=== PATIENT | male | born 2000 | race Caucasian/White ===

== ENCOUNTER 2022-01-04 14:17 | Inpatient (IN) ==
[2022-01-04] MEDS ORDERED: ONDANSETRON INJ 2 MG/ML 2 ML VIAL IV STA (14:29)
[2022-01-04] MEDS ORDERED: SODIUM CHLORIDE 0.9% 1000ML 1,000 ML IV STA ×2 (14:29)
[2022-01-04] MEDS ORDERED: FAMOTIDINE 20MG IV PUSH 20 MG/5 ML SYR IV STA (14:40)
[2022-01-04] MEDS ORDERED: MoRPHine SULFATE 2 MG/ML CARP IV STA (14:40)
[2022-01-04 14:56] LABS: Basophils # (auto) 0.01 K/uL (0-0.2); Basophils % (auto) 0.1 %; Hematocrit (blood only) 40.2 % (40.1-51.0); Hemoglobin 13.3 g/dl (14.0-18.0); Immature Granulocytes # (auto) 0.03 K/uL (0.00-0.02); Immature Granulocytes % (auto) 0.3 %; Lymphocytes # (auto) 0.72 K/uL (1.2-3.4); Lymphocytes % (auto) 7.3 %; Mean Corpuscular Hemoglobin 26.2 pg (25.0-34.0); Mean Corpuscular Hgb Conc 33.1 g/dL (32.0-36.0); Mean Corpuscular Volume 79.3 fL (80.0-100.0); Mean Platelet Volume 9.6 fL (9.4-12.4); Monocytes # (auto) 0.51 K/uL (0.24-0.82); Monocytes % (auto) 5.2 %; Neutrophils # (auto) 8.58 K/uL (1.4-6.5); Neutrophils % (auto) 87.1 %; Platelet Count 392 K/uL (130-400); RDW Coefficient of Variation 14.5 % (11.5-14.5); RDW Standard Deviation 41.1 fL (36.4-46.3); Red Blood Count 5.07 M/uL (4.63-6.08); White Blood Count 9.85 K/ul (4.8-10.8)
--- NOTE | 2022-01-04 15:20 | Emergency Department Note ---
Impression & Plan Small bowel obstruction, Abdominal pain, acute, epigastric, Coffee ground emesis, History of Crohn's disease ED Provider Note INFORMANT: Patient ED PROVIDER(S): Lai Moreira MD CHIEF COMPLAINT: Abdominal pain PLAN: Disposition: Admitted Condition: Good Outpatient prescription management: none Referral: None MEDICAL DECISION MAKING: Patient presented because of abdominal pain. Work-up was initiated. His CBC and chemistry panel were unremarkable. The patient's CT scan revealed findings concerning for bowel obstruction. She was treated with saline, Zofran, and morphine. Patient was also treated with Pepcid. Patient was doing well on reassessment. NG tube will be necessary. Discussed with the patient. Consultation was made with general surgery I discussed the case with Dr. Jorgensen. They will consult. Patient had consultation placed with internal medicine. Patient was evaluated in the ER and admitted for further management. Triage Nursing notes reviewed and agree them. Vital Signs: reviewed and remarkable for no significant abnormalities Differential diagnosis: Etiologies such as patient of inflammatory bowel disease, Juliette-Neri tear, peptic ulcer disease, gastroenteritis, food borne illness, infections, appendicitis, diverticulitis, other inflammatory bowel disease, GI bleed, biliary pathology, as well as others were entertained. Diagnostics interpreted by me: ECG: none Cardiac Monitoring: Cardiac monitoring ordered by me: The patient was placed on continuous cardiac monitoring and observed. It revealed a normal sinus rhythm at 86 beats per minute without ectopy or evidence of dysrhythmia. Imaging studies: CT scan as noted below HPI: The patient is a 21year old male who presents to the Emergency Room with complaints of upper abdominal pain. This started days ago and is worsening. The patient also notes the following associated symptoms, nausea, coffee-ground emesis that started last night. The patient has found no relieving factors. C urrent pain is rated as 4/10. Patient has a history of Crohn's disease. He is currently on a prednisone taper. He was on 40 mg last week and is now on 30 mg. Patient was previously prescribed a PPI but has not taken it in the last several days. Pt denies LOC, headache, fevers, chills, diaphoresis, visual changes, neck pain, chest pain, breathing difficulties, back pain, melena, hematochezia, urinary symptoms, numbness, weakness, lymphadenopathy, rash, or other complaints. ROS: See above HPI for pertinent positives & negatives. A total of 10 systems reviewed and were otherwise negative. PAST MEDICAL HISTORY:See Below , Crohn's disease PAST SURGICAL HISTORY:See Below, FAMILY HISTORY:See Below SOCIAL HISTORY:See Below, denies alcohol HOME MEDICATIONS:See Below ALLERGIES:See Below VITALS:See Below PHYSICAL EXAMINATION: GENERAL: Awake, alert, uncomfortable-appearing, in no distress HENT: Normocephalic, atraumatic. Oropharynx unremarkable. EYES: Normal conjunctiva. Sclera non-icteric. NECK: Inspection normal. Non-tender. Supple. No nuchal rigidity. FROM. No masses. RESPIRATORY: Clear to auscultation. No wheezes. No rales. Normal respiratory effort. CARDIAC: Normal rate. Normal rhythm. No murmurs. No rubs. Extremities warm and well perfused. Pulses equal. No JVD. GI: Soft, non-distended. Epigastric tenderness to palpation. No rebound or guarding. No masses. RECTAL: Deferred. MUSCULOSKELETAL: Atraumatic. Chest examination reveals no tenderness. The back is symmetrical on inspection without obvious abnormality. There is no CVA tenderness to palpation. No joint edema. LOWER EXTREMITIES: Calves are equal size bilaterally and non-tender. No edema. No discoloration. NEURO: Normal sensorium. No sensory or motor deficits noted. SKIN: No rash or jaundice noted. Lia Moreira MD Past Med/Surg History Medical History Crohn disease Surgical History No history of previous surgery Family History Father Hypertension Social History Smoking Status: Never smoker Hx Alcohol Use: No Hx Substance Use: No Preferred Language: Micronesian Communication Ability: Effective Recruitment And Outreach Assistant Required: No Beliefs That Will Affect Care: None Current Living Situation: Other Current Living Situation Comment: lives in dorm at [facility] Feels Safe at Home: Yes Assistive Devices: None Allergies Allergies Allergy/AdvReac Type Severity Reaction Status Date / Time No Known Allergies Allergy Unverified 01/04/22 17:54 Home Meds Home Medications Medication Instructions Recorded Confirmed esomeprazole magnesium 40 mg 40 mg PO DAILY 01/04/22 01/04/22 capsule,delayed release prednisone 10 mg tablet 40 mg PO .DAILY/UD 01/04/22 01/04/22 ustekinumab 90 mg/mL subcutaneous 0 mg subcut Q2M 01/04/22 01/04/22 syringe (Stelara) Results & Data (ED) Vital Signs Vital Signs - 24 hr 01/04/22 14:20 01/04/22 14:32 01/04/22 14:37 Temperature 37.1 C Temperature Source Temporal Artery Scan Pulse Rate 102 H 94 H Pulse Rate [Finger] 90 Pulse Rhythm Regular Pulse Rhythm [Finger] Regular Pulse Strength [Finger] Normal Respiratory Rate 18 20 18 Respiratory Effort / Characteristics Non-Labored Respiratory Depth Normal Respiratory Pattern Blood Pressure 133/93 Blood Pressure [Left Arm] 113/78 Blood Pressure Mean 106 Blood Pressure Mean [Left Arm] 89 Blood Pressure Position [Left Arm] Lying Pulse Oximetry 97 96 97 Oxygen Delivery Method Room Air Room Air Room Air Sepsis Recent Fever Within 48 Hours No Sepsis New/Unexplained Change in Mental Status N/A Sepsis Action Taken by Nursing No Action Required 01/04/22 17:00 01/04/22 18:00 01/04/22 19:00 Temperature Temperature Source Pulse Rate Pulse Rate [Finger] 98 H 93 H 88 Pulse Rhythm Pulse Rhythm [Finger] Regular Regular Pulse Strength [Finger] Normal Normal Respiratory Rate 18 18 18 Respiratory Effort / Characteristics Non-Labored Non-Labored Respiratory Depth Normal Normal Respiratory Pattern Regular Regular Blood Pressure Blood Pressure [Left Arm] 138/85 124/83 127/82 Blood Pressure Mean Blood Pressure Mean [Left Arm] 102 96 97 Blood Pressure Position [Left Arm] Pulse Oximetry 94 97 96 Oxygen Delivery Method Room Air Room Air Room Air Sepsis Recent Fever Within 48 Hours Sepsis New/Unexplained Change in Mental Status Sepsis Action Taken by Nursing Laboratory Data Result diagrams: 01/04/22 14:45 01/04/22 14:45 Lab Results 01/04/22 01/04/22 01/04/22 Range/Units 14:45 14:45 17:14 WBC 9.85 (4.8-10.8) K/ul RBC 5.07 (4.63-6.08) M/uL Hgb 13.3 L (14.0-18.0) g/dl Hct 40.2 (40.1-51.0) % MCV 79.3 L (80.0-100.0) fL MCH 26.2 (25.0-34.0) pg MCHC 33.1 (32.0-36.0) g/dL RDW Std Deviation 41.1 (36.4-46.3) fL RDW Coeff of Андрей 14.5 (11.5-14.5) % Plt Count 392 (130-400) K/uL MPV 9.6 (9.4-12.4) fL Immature Gran % (Auto) 0.3 % Neut % (Auto) 87.1 % Lymph % (Auto) 7.3 % Cedar % (Auto) 5.2 % Eos % (Auto) 0.0 % Baso % (Auto) 0.1 % Neut # (Auto) 8.58 H (1.4-6.5) K/uL Lymph # (Auto) 0.72 L (1.2-3.4) K/uL Cedar # (Auto) 0.51 (0.24-0.82) K/uL Eos # (Auto) 0.00 (0-0.50) K/uL Baso # (Auto) 0.01 (0-0.2) K/uL Immature Gran # (Auto) 0.03 H (0.00-0.02) K/uL Sodium 136 (136-145) mmol/L Potassium 3.8 (3.5-5.1) mmol/L Chloride 100 (98-107) mmol/L Carbon Dioxide 26 (21-32) mmol/L Anion Gap 10 (3-11) BUN 19 (6-23) mg/dl Creatinine 0.65 (0.6-1.4) mg/dl Est Cr Clr Drug Dosing 152.0 ml/min Est GFR ( Amer) > 150.0 ml/min Est GFR (Non-Af Amer) 141.0 ml/min BUN/Creatinine Ratio 29.2 H (10-20) Glucose 128 H (70-99(Fasting)) mg/dl Calcium 9.5 (8.5-10.1) mg/dl Total Bilirubin 0.9 (0.2-1.0) mg/dl AST 13 (13-39) U/L ALT 39 (7-52) U/L Alkaline Phosphatase 82 (34-104) U/L Total Protein 7.8 (6.0-8.3) gm/dl Albumin 4.5 (3.4-5.0) gm/dl Globulin 3.3 (2.5-4.0) gm/dl Albumin/Globulin Ratio 1.4 (0.9-2) Lipase 18 (11-82) U/L Urine Color Dark Yellow Urine Appearance Cloudy A (Clear) Urine pH 5.5 (4.5-7.5) Ur Specific [place] 1.035 H (1.000-1.030) Urine Protein 1+ H (Negative) Urine Glucose (UA) Trace H (Negative) Urine Ketones 3+ H (Negative) Urine Blood Negative (Negative) Urine Nitrite Negative (Negative) Urine Bilirubin 1+ H (Negative) Urine Urobilinogen Negative (Negative) Ur Leukocyte Esterase Negative (Negative) Urine WBC (Auto) 1-5 (0-5) /hpf Urine RBC (Auto) 0-4 (0-4) /hpf U Hyaline Cast (Auto) 1-5 (0-5) /lpf U Epithel Cells (Auto) 10-20 H (0-5) /lpf Urine Bacteria (Auto) Negative (Negative) Urine Crystals Not Reportable Calcium Oxalate Crystal Present A (None Prsent) Urine Mucus Present A (None Prsent) SARS-CoV-2, RNA, NAAT (NEGATIVE) 01/04/22 Range/Units 17:35 WBC (4.8-10.8) K/ul RBC (4.63-6.08) M/uL Hgb (14.0-18.0) g/dl Hct (40.1-51.0) % MCV (80.0-100.0) fL MCH (25.0-34.0) pg MCHC (32.0-36.0) g/dL RDW Std Deviation (36.4-46.3) fL RDW Coeff of Андрей (11.5-14.5) % Plt Count (130-400) K/uL MPV (9.4-12.4) fL Immature Gran % (Auto) % Neut % (Auto) % Lymph % (Auto) % Cedar % (Auto) % Eos % (Auto) % Baso % (Auto) % Neut # (Auto) (1.4-6.5) K/uL Lymph # (Auto) (1.2-3.4) K/uL Cedar # (Auto) (0.24-0.82) K/uL Eos # (Auto) (0-0.50) K/uL Baso # (Auto) (0-0.2) K/uL Immature Gran # (Auto) (0.00-0.02) K/uL Sodium (136-145) mmol/L Potassium (3.5-5.1) mmol/L Chloride (98-107) mmol/L Carbon Dioxide (21-32) mmol/L Anion Gap (3-11) BUN (6-23) mg/dl Creatinine (0.6-1.4) mg/dl Est Cr Clr Drug Dosing ml/min Est GFR ( Amer) ml/min Est GFR (Non-Af Amer) ml/min BUN/Creatinine Ratio (10-20) Glucose (70-99(Fasting)) mg/dl Calcium (8.5-10.1) mg/dl Total Bilirubin (0.2-1.0) mg/dl AST (13-39) U/L ALT (7-52) U/L Alkaline Phosphatase (34-104) U/L Total Protein (6.0-8.3) gm/dl Albumin (3.4-5.0) gm/dl Globulin (2.5-4.0) gm/dl Albumin/Globulin Ratio (0.9-2) Lipase (11-82) U/L Urine Color Urine Appearance (Clear) Urine pH (4.5-7.5) Ur Specific [place] (1.000-1.030) Urine Protein (Negative) Urine Glucose (UA) (Negative) Urine Ketones (Negative) Urine Blood (Negative) Urine Nitrite (Negative) Urine Bilirubin (Negative) Urine Urobilinogen (Negative) Ur Leukocyte Esterase (Negative) Urine WBC (Auto) (0-5) /hpf Urine RBC (Auto) (0-4) /hpf U Hyaline Cast (Auto) (0-5) /lpf U Epithel Cells (Auto) (0-5) /lpf Urine Bacteria (Auto) (Negative) Urine Crystals Calcium Oxalate Crystal (None Prsent) Urine Mucus (None Prsent) SARS-CoV-2, RNA, NAAT NEGATIVE (NEGATIVE) Administered Medications Sodium Chloride (Nss 1000ml) 1,000 mls @ 125 mls/hr IV .Q8H FERNANDO Stop: 02/03/22 20:36 Last Admin: 01/04/22 21:41 Dose: 125 mls/hr Documented By: TAWANDA Pantoprazole Sodium 40 mg/ (Syringe) 10 mls @ 5 mls/min IV BID FERNANDO Stop: 02/03/22 20:59 Last Admin: 01/04/22 21:38 Dose: 5 mls/min Documented By: TAWANDA Methylprednisolone 20 mg/ (Syringe) 0.32 mls @ 1.5 mls/min IV TID FERNANDO Stop: 02/03/22 20:59 Last Admin: 01/04/22 21:38 Dose: 1.5 mls/min Documented By: TAWANDA Phenol (Chloraseptic 1.4% Soln 180 Ml Btl) 2 sprays MT Q1H PRN PRN Reason: Sore Throat Stop: 02/03/22 18:22 Last Admin: 01/04/22 20:07 Dose: 2 sprays Documented By: TAMMIE Discontinued Medications Sodium Chloride (Nss 1000ml) 1,000 mls @ 999 mls/hr IV .Q1H1M STA Stop: 01/04/22 15:29 Last Infusion: 01/04/22 15:31 Dose: 0 mls/hr Documented By: Admin: 01/04/22 14:48 Dose: 999 mls/hr Documented By: SHRUTHI Sodium Chloride (Nss 1000ml) 1,000 mls @ 125 mls/hr IV .Q8H STA Stop: 01/04/22 22:28 Last Infusion: 01/04/22 22:29 Dose: 0 mls/hr Documented By: Admin: 01/04/22 17:35 Dose: 125 mls/hr Documented By: SHRUTHI Famotidine (Pepcid 20mg Iv Push) 20 mg in 5 mls @ 2.5 mls/min IV NOW STA Stop: 01/04/22 14:41 Last Admin: 01/04/22 14:52 Dose: 2.5 mls/min Documented By: SHRUTHI Ioversol (Ioversol 350 Mg 100ml Prefilled Syringe) 91 ml IV ONCE ONE Stop: 01/04/22 15:53 Last Admin: 01/04/22 15:53 Dose: 91 ml Documented By: DALY Morphine Sulfate (Morphine Sulfate 2 Mg/Ml Carp) 2 mg IV NOW STA Stop: 01/04/22 14:41 Last Admin: 01/04/22 14:52 Dose: 2 mg Documented By: SHRUTHI Ondansetron HCl (Ondansetron Inj 2 Mg/Ml 2 Ml Vial) 4 mg IV NOW STA Stop: 01/04/22 14:30 Last Admin: 01/04/22 14:52 Dose: 4 mg Documented By: SHRUTHI Imaging Data Radiologist's Impression: Abdomen/Pelvis CT 01/04/22 14:[address] WITH IV CONTRAST CT DOSE: 292.03 mGy.cm HISTORY: Acute upper abdominal pain with nausea and vomiting. History of Crohn's disease upper abd pain, coffee ground emesis, hx of crohns TECHNIQUE: Multiaxial CT images of the abdomen and pelvis were performed following the IV administration of 91 cc of Optiray, A dose lowering technique was utilized adhering to the principles of ALARA. COMPARISON STUDY: None. FINDINGS: Clear lung bases. Unremarkable spleen, pancreas, gallbladder, adrenal glands and liver. Patency of the hepatic and portal veins. Unremarkable kidneys. No hydronephrosis. Decompressed urinary bladder. Aorta and IVC are unremarkable. Mildly enlarged mesenteric lymph nodes measure up to approximately 11 mm in short axis. There is marked wall thickening with mucosal hyperemia involving the terminal ileum and cecum resulting in marked luminal narrowing at the terminal ileum. This results in high-grade small bowel obstruction. Small bowel is dilated up to 7.9 cm upstream to the site of obstruction. No fistula or sinus tract identified. The proximal appendix is dilated at 8 mm and demonstrates wall thickening. The mid to distal appendix is normal in caliber and is fluid-filled. Inflammatory stranding is noted adjacent to the cecum and appendix. Prominent lymph nodes of the right lower quadrant mesentery. Unremarkable soft tissues. No acute fracture. IMPRESSION: 1. Marked wall thickening of the terminal ileum and cecum with mucosal hyperemia compatible with acute active inflammatory bowel disease. There is high-grade narrowing/stricturing at the terminal ileum resulting in upstream high-grade small bowel obstruction with marked dilation of the small bowel. 2. The proximal appendix is dilated and inflamed measuring up to 8 mm with the mid and distal appendix normal in caliber. The inflammation is likely secondary to the inflammatory bowel disease as above, however concomitant acute appendicitis could appear similarly. 3. Likely reactive mesenteric lymphadenopathy. 4. No pneumoperitoneum, fistula or sinus tract identified. ACT 112: Negative or not required by law. The above report was generated using voice recognition software. It may contain grammatical, syntax or spelling errors. Electronically signed by: Russell Amor M.D. 01/04/2022 4:17 PM Discharge Plan Visit Data Chief Complaint: GI Assessment Stated Complaint: UPPER ABD PAIN,VOMITING,HX OF CROHNS ED Provider: Lai Moreira Discharge Problem: Small bowel obstruction, Abdominal pain, acute, epigastric, Coffee ground emesis, History of Crohn's disease Patient Disposition: Admitted As Inpatient Discharge Instructions Interventions: ED Discharge Assessment Last Done: 01/04/22 20:16
[2022-01-04 15:35] LABS: Alanine Aminotransferase 39 U/L (7-52); Albumin Globulin Ratio 1.4 (0.9-2); Albumin Level 4.5 gm/dl (3.4-5.0); Alkaline Phosphatase 82 U/L (34-104); Anion Gap 10 (3-11); Aspartate Aminotransferase 13 U/L (13-39); BUN Creatinine Ratio 29.2 (10-20); Bilirubin,Total 0.9 mg/dl (0.2-1.0); Blood Urea Nitrogen 19 mg/dl (6-23); Calcium 9.5 mg/dl (8.5-10.1); Carbon Dioxide 26 mmol/L (21-32); Chloride 100 mmol/L (98-107); Est GFR (African American) > 150.0 ml/min; Globulin 3.3 gm/dl (2.5-4.0); Glucose 128 mg/dl (70-99(Fasting)); Lipase 18 U/L (11-82); Potassium 3.8 mmol/L (3.5-5.1); Sodium 136 mmol/L (136-145); Total Protein 7.8 gm/dl (6.0-8.3)
[2022-01-04] MEDS ORDERED: IOVERSOL 350 MG 100mL Prefilled Syringe IV ONE (15:52)
--- NOTE | 2022-01-04 16:19 | CT Scan Report ---
ABDOMEN AND PELVIS CT WITH IV CONTRAST CT DOSE: 292.03 mGy.cm HISTORY: Acute upper abdominal pain with nausea and vomiting. History of Crohn's disease upper abd p ain, coffee ground emesis, hx of crohns TECHNIQUE: Multiaxial CT images of the abdomen and pelvis were performed following the IV administrat ion of 91 cc of Optiray, A dose lowering technique was utilized adhering to the principles of ALARA. COMPARISON STUDY: None. FINDINGS: Clear lung bases. Unremarkable spleen, pancreas, gallbladder, adrenal glands and liver. Pat ency of the hepatic and portal veins. Unremarkable kidneys. No hydronephrosis. Decompressed urinary b ladder. Aorta and IVC are unremarkable. Mildly enlarged mesenteric lymph nodes measure up to approxim ately 11 mm in short axis. There is marked wall thickening with mucosal hyperemia involving the terminal ileum and cecum resulti ng in marked luminal narrowing at the terminal ileum. This results in high-grade small bowel obstruct ion. Small bowel is dilated up to 7.9 cm upstream to the site of obstruction. No fistula or sinus tra ct identified. The proximal appendix is dilated at 8 mm and demonstrates wall thickening. The mid to distal appendix is normal in caliber and is fluid-filled. Inflammatory stranding is noted adjacent to the cecum and appendix. Prominent lymph nodes of the right lower quadrant mesentery. Unremarkable so ft tissues. No acute fracture. IMPRESSION: 1. Marked wall thickening of the terminal ileum and cecum with mucosal hyperemia compatible with acut e active inflammatory bowel disease. There is high-grade narrowing/stricturing at the terminal ileum resulting in upstream high-grade small bowel obstruction with marked dilation of the small bowel. 2. The proximal appendix is dilated and inflamed measuring up to 8 mm with the mid and distal appendi x normal in caliber. The inflammation is likely secondary to the inflammatory bowel disease as above, however concomitant acute appendicitis could appear similarly. 3. Likely reactive mesenteric lymphadenopathy. 4. No pneumoperitoneum, fistula or sinus tract identified. ACT 112: Negative or not required by law. The above report was generated using voice recognition software. It may contain grammatical, syntax o r spelling errors. Electronically signed by: Russell Amor M.D. 01/04/2022 4:17 PM
[2022-01-04 17:26] LABS: Appearance Urine Cloudy (Clear); Bacteria Urine Automated Negative (Negative); Blood Urine Negative (Negative); Color Urine Dark Yellow; Glucose Urine UA Trace (Negative); Ketones Urine 3+ (Negative); Leukocyte Esterase Urine Negative (Negative); Nitrite Urine Negative (Negative); Protein Urine 1+ (Negative); RBC Urine Automated 0-4 /hpf (0-4); Specific Gravity Urine 1.035 (1.000-1.030); Urobilinogen Urine Negative (Negative); pH Urine 5.5 (4.5-7.5)
[2022-01-04 17:27] LABS: Bilirubin Urine 1+ (Negative)
[2022-01-04 17:38] LABS: Calcium Oxalate Crystals Urine Present (None Prsent); Mucus Urine Present (None Prsent)
[2022-01-04] MEDS ORDERED: ACETAMINOPHEN 1,000 MG in EMPTY BAG 0 ML IV PRN (18:07)
[2022-01-04] MEDS ORDERED: ONDANSETRON INJ 2 MG/ML 2 ML VIAL IV PRN (18:07)
[2022-01-04] MEDS ORDERED: CHLORASEPTIC 1.4% SOLN 180 ML BTL MT PRN (18:23)
--- NOTE | 2022-01-04 18:43 | History & Physical Report ---
Date of Service January 04, 2022 Assessment & Plan (1) Crohn's disease: (2) Small bowel obstruction: Plan Patient is a 21-year-old male with past medical history of Crohn's disease who presents to the ED with 3-day of nausea, vomiting and abdominal pain. On presentation to the ED, he was normotensive afebrile and saturating room well in room air. Hemoglobin is 13.3. BMP was unremarkable. CT abdomen and pelvis showed marked wall thickening of the terminal ileum and cecum with mucosal hyperemia compatible with active inflammatory bowel disease. There is a high- grade narrowing/stricture of terminal ileum. Patient was started on IV fluids, NG tube was placed for decompression. Surgery was consulted and patient was admitted to general medical floor. Crohn's disease Small bowel obstruction Afebrile, normotensive and saturating well in room air. Leukocytosis absent Electrolytes within normal limits. CT abdomen as above Plan; Continue with conservative management. Discussion was done by the ED physician with the surgeon who recommends bowel rest with NG suction, serial abdomen exam and imaging. -- Started on IV fluids NS at 125 cc/h Obtain KUB daily Obtain CRP, ESR IV Tylenol for pain; minimize narcotics. We will start on methylprednisolone 20 mg IV 3 times daily. Consult GI; appreciate recommendation. Full code DVT prophylaxis Heparin DispoHome after resolution of medical issues Discussed with patient's father over the phone; contact [phone] History of Present Illness Chief Complaint: Nausea ,vomiting and abdominal pain for 3 days Primary Care Provider: NO PCP Patient is a 21-year-old male with past medical history of Crohn's disease who presents to the ED with 3-day of nausea, vomiting and abdominal pain. Since Wednesday, he started to experience episodes of nausea and vomiting containing food particles and occasionally dark brown in color as well. He also noticed he had increasing abdominal distention and abdominal pain in periumbilical region. Abdominal pain was cramping in nature, intermittent, nonradiating with no aggravating and relieved on bowel movement. He had also noticed decreased frequency and amount of bowel movement as well. His last bowel movement was last evening. He denies fever, chills, chest pain, shortness of breath or any other urinary symptoms. He was diagnosed with Crohn's disease in October 2021. He was initially given a course of prednisone and was started on Stelara. He follows up with gastroenterology in [place] with Dr. Jamel Zacarias. He was recently prescribed prednisone taper by his gastroenterology due to increasing symptoms. He is currently on 30 mg of prednisone. He reports that he had undergone colonoscopy in the summer which showed narrowing at the terminal ileum. He has never been hospitalized. He reports being in the emergency department for nausea and vomiting once before and was discharged from the ED. 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 He does not smoke, occasionally drinks alcohol and occasionally uses marijuana. On presentation to the ED, he was normotensive afebrile and saturating room well in room air. Hemoglobin is 13.3. BMP was unremarkable. CT abdomen and pelvis showed marked wall thickening of the terminal ileum and cecum with mucosal hyperemia compatible with active inflammatory bowel disease. There is a high- grade narrowing/stricture of terminal ileum. Patient was started on IV fluids, NG tube was placed for decompression. Surgery was consulted and patient was admitted to general medical floor. Allergies Allergy/AdvReac Type Severity Reaction Status Date / Time No Known Allergies Allergy Unverified 01/04/22 17:54 Home Medications Medication Instructions Recorded Confirmed Type esomeprazole magnesium 40 mg 40 mg PO DAILY 01/04/22 01/04/22 History capsule,delayed release prednisone 10 mg tablet 40 mg PO .DAILY/UD 01/04/22 01/04/22 History ustekinumab 90 mg/mL subcutaneous 0 mg subcut Q2M 01/04/22 01/04/22 History syringe (Stelara) Past Med/Surg History Medical History (Updated 01/04/22 @ 18:52 by Lonny Guthrie MD) Crohn disease Surgical History (Updated 01/04/22 @ 18:48 by Lonny Guthrie MD) No history of previous surgery Family History (Updated 01/04/22 @ 18:48 by Lonny Guthrie MD) Father Hypertension Social History Smoking Status: Never smoker Feels Safe at Home: Yes Review of Systems Review of Systems: All systems reviewed & are unremarkable except as noted in Subjective Physical Exam Physical Exam: Constitutional: WD/WN, vitals as above, NAD, sitting up in bed, pleasant, conversing easily ENMT: NG tube in place draining dark-colored output. Neck: trachea midline, no thyromegaly normal visual inspection Respiratory: normal respiratory effort, lungs clear to auscultation, no wheeze, rales, rhonchi. Normal insp/exp effort, no accessory muscle use Cardiovascular: RRR, no murmur, no edema Vessels: no JVD or carotid bruit Chest: normal inspection of chest Abdomen: Hyperactive bowel movement. Tenderness present in periumbilical and epigastric region. Musculoskeletal: no cyanosis or clubbing, extremities motor strength 5/5 Skin: no rashes, warm and dry normal turgor Neurologic: PERRL, EOMI, accommodation nl, no face palsy, no dysarthria CN's II- XI intact bilaterally and moves all extremities Psychiatric: A+Ox3, euthymic affect Lymphatic: no cervical or axillary lymphadenopathy : deferred Results & Data Results & Data ([facility]) Vital Signs (Past 12 Hours) Vital Signs Temp Pulse Pulse Resp BP BP Pulse Ox 01/04/22 17:00 98 H 18 138/85 94 01/04/22 14:37 94 H 18 97 01/04/22 14:32 90 20 113/78 96 01/04/22 14:20 37.1 C 102 H 18 133/93 97 O2 Del Method 01/04/22 17:00 Room Air 01/04/22 14:37 Room Air 01/04/22 14:32 Room Air 01/04/22 14:20 Room Air Laboratory Results Laboratory Results WBC 9.85 K/ul (4.8-10.8) 01/04/22 14:45 RBC 5.07 M/uL (4.63-6.08) 01/04/22 14:45 Hgb 13.3 g/dl (14.0-18.0) L 01/04/22 14:45 Hct 40.2 % (40.1-51.0) 01/04/22 14:45 MCV 79.3 fL (80.0-100.0) L 01/04/22 14:45 MCH 26.2 pg (25.0-34.0) 01/04/22 14:45 MCHC 33.1 g/dL (32.0-36.0) 01/04/22 14:45 RDW Std Deviation 41.1 fL (36.4-46.3) 01/04/22 14:45 RDW Coeff of Андрей 14.5 % (11.5-14.5) 01/04/22 14:45 Plt Count 392 K/uL (130-400) 01/04/22 14:45 MPV 9.6 fL (9.4-12.4) 01/04/22 14:45 Immature Gran % (Auto) 0.3 % 01/04/22 14:45 Neut % (Auto) 87.1 % 01/04/22 14:45 Lymph % (Auto) 7.3 % 01/04/22 14:45 Mclean % (Auto) 5.2 % 01/04/22 14:45 Eos % (Auto) 0.0 % 01/04/22 14:45 Baso % (Auto) 0.1 % 01/04/22 14:45 Neut # (Auto) 8.58 K/uL (1.4-6.5) H 01/04/22 14:45 Lymph # (Auto) 0.72 K/uL (1.2-3.4) L 01/04/22 14:45 Mclean # (Auto) 0.51 K/uL (0.24-0.82) 01/04/22 14:45 Eos # (Auto) 0.00 K/uL (0-0.50) 01/04/22 14:45 Baso # (Auto) 0.01 K/uL (0-0.2) 01/04/22 14:45 Immature Gran # (Auto) 0.03 K/uL (0.00-0.02) H 01/04/22 14:45 Sodium 136 mmol/L (136-145) 01/04/22 14:45 Potassium 3.8 mmol/L (3.5-5.1) 01/04/22 14:45 Chloride 100 mmol/L (98-107) 01/04/22 14:45 Carbon Dioxide 26 mmol/L (21-32) 01/04/22 14:45 Anion Gap 10 (3-11) 01/04/22 14:45 BUN 19 mg/dl (6-23) 01/04/22 14:45 Creatinine 0.65 mg/dl (0.6-1.4) 01/04/22 14:45 Est Cr Clr Drug Dosing 152.0 ml/min 01/04/22 14:45 Est GFR ( Amer) > 150.0 ml/min 01/04/22 14:45 Est GFR (Non-Af Amer) 141.0 ml/min 01/04/22 14:45 BUN/Creatinine Ratio 29.2 (10-20) H 01/04/22 14:45 Glucose 128 mg/dl (70-99(Fasting)) H 01/04/22 14:45 Calcium 9.5 mg/dl (8.5-10.1) 01/04/22 14:45 Total Bilirubin 0.9 mg/dl (0.2-1.0) 01/04/22 14:45 AST 13 U/L (13-39) 01/04/22 14:45 ALT 39 U/L (7-52) 01/04/22 14:45 Alkaline Phosphatase 82 U/L (34-104) 01/04/22 14:45 Total Protein 7.8 gm/dl (6.0-8.3) 01/04/22 14:45 Albumin 4.5 gm/dl (3.4-5.0) 01/04/22 14:45 Globulin 3.3 gm/dl (2.5-4.0) 01/04/22 14:45 Albumin/Globulin Ratio 1.4 (0.9-2) 01/04/22 14:45 Lipase 18 U/L (11-82) 01/04/22 14:45 Urine Color Dark Yellow 01/04/22 17:14 Urine Appearance Cloudy (Clear) A 01/04/22 17:14 Urine pH 5.5 (4.5-7.5) 01/04/22 17:14 Ur Specific [place] 1.035 (1.000-1.030) H 01/04/22 17:14 Urine Protein 1+ (Negative) H 01/04/22 17:14 Urine Glucose (UA) Trace (Negative) H 01/04/22 17:14 Urine Ketones 3+ (Negative) H 01/04/22 17:14 Urine Blood Negative (Negative) 01/04/22 17:14 Urine Nitrite Negative (Negative) 01/04/22 17:14 Urine Bilirubin 1+ (Negative) H 01/04/22 17:14 Urine Urobilinogen Negative (Negative) 01/04/22 17:14 Ur Leukocyte Esterase Negative (Negative) 01/04/22 17:14 Urine WBC (Auto) 1-5 /hpf (0-5) 01/04/22 17:14 Urine RBC (Auto) 0-4 /hpf (0-4) 01/04/22 17:14 U Hyaline Cast (Auto) 1-5 /lpf (0-5) 01/04/22 17:14 U Epithel Cells (Auto) 10-20 /lpf (0-5) H 01/04/22 17:14 Urine Bacteria (Auto) Negative (Negative) 01/04/22 17:14 Urine Crystals Not Reportable 01/04/22 17:14 Calcium Oxalate Crystal Present (None Prsent) A 01/04/22 17:14 Urine Mucus Present (None Prsent) A 01/04/22 17:14 SARS-CoV-2, RNA, NAAT NEGATIVE (NEGATIVE) 01/04/22 17:35 Impressions Abdomen/Pelvis CT 01/04/22 14:[address] WITH IV CONTRAST CT DOSE: 292.03 mGy.cm HISTORY: Acute upper abdominal pain with nausea and vomiting. History of Crohn's disease upper abd pain, coffee ground emesis, hx of crohns TECHNIQUE: Multiaxial CT images of the abdomen and pelvis were performed follow ing the IV administration of 91 cc of Optiray, A dose lowering technique was utilized adhering to the principles of ALARA. COMPARISON STUDY: None. FINDINGS: Clear lung bases. Unremarkable spleen, pancreas, gallbladder, adrenal glands and liver. Patency of the hepatic and portal veins. Unremarkable kidneys. No hydronephrosis. Decompressed urinary bladder. Aorta and IVC are unremarkable. Mildly enlarged mesenteric lymph nodes measure up to approximately 11 mm in short axis. There is marked wall thickening with mucosal hyperemia involving the terminal ileum and cecum resulting in marked luminal narrowing at the terminal ileum. This results in high-grade small bowel obstruction. Small bowel is dilated up to 7.9 cm upstream to the site of obstruction. No fistula or sinus tract identified . The proximal appendix is dilated at 8 mm and demonstrates wall thickening. The mid to distal appendix is normal in caliber and is fluid-filled. Inflammatory stranding is noted adjacent to the cecum and appendix. Prominent lymph nodes of the right lower quadrant mesentery. Unremarkable soft tissues. No acute fracture. IMPRESSION: 1. Marked wall thickening of the terminal ileum and cecum with mucosal hyperemia compatible with acute active inflammatory bowel disease. There is high-grade narrowing/stricturing at the terminal ileum resulting in upstream high-grade small bowel obstruction with marked dilation of the small bowel. 2. The proximal appendix is dilated and inflamed measuring up to 8 mm with the mid and distal appendix normal in caliber. The inflammation is likely secondary to the inflammatory bowel disease as above, however concomitant acute appendicitis could appear similarly. 3. Likely reactive mesenteric lymphadenopathy. 4. No pneumoperitoneum, fistula or sinus tract identified. ACT 112: Negative or not required by law. The above report was generated using voice recognition software. It may contain grammatical, syntax or spelling errors. Electronically signed by: Russell Amor M.D. 01/04/2022 4:17 PM
--- NOTE | 2022-01-04 19:44 | Surgery Consultation ---
Date of Consultation January 04, 2022 Assessment & Plan (1) Small bowel obstruction: The patient has been admitted on the medical service. From a surgical perspective we recommend proceeding as follows: Provide IV fluid for hydration Implement n.p.o. status Provide analgesics Provide antiemetics Continue NG tube to low continuous suction It appears as though his small bowel obstruction is likely related to a flare of his Crohn's disease. We therefore recommended GI consultation which has been placed by the medical service. We await their recommendations to see if patient would benefit from any medication such as intravenous steroids to improve his current flare. I discussed with the patient that would be preferable to treat this in a conservative manner and avoid surgery in the setting of an active Crohn's flare Additional recommendations be forthcoming based on his clinical course as it unfolds as well as recommendations from gastroenterology (2) Crohn's disease: Supervising Physician Co-Signing Physician Notes Patient discussed with Kevin OILVER, labs and image reviewed, agree with above. 21-year-old male with recently diagnosed Crohn's disease presents with increasing abdominal discomfort. He is currently on a prednisone taper and started Stelara. Personally viewed and interpreted CT scan which showed thickened and slightly inflamed terminal ileum with dilated loops of bowel proximally. We will place NG tube, n.p.o., IV fluids. Recommend GI consult and likely needs IV steroids. No surgical intervention at this time. Surgery continue to follow. 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 He notes that the pain is primary located in the upper abdomen. He has had associated nausea and vomiting. He notes that the pain has been present for approximately 2 to 2-1/2 days without radiation or additional modifying factors. He does report history of Crohn's disease that was diagnosed in 2021 via colonoscopy and EGD. He does note prior to his diagnosis of Crohn disease he was having some vague nonspecific abdominal complaints for approximately 3 years. Since his pain began today he does note nausea and vomiting as noted above. He denies any fevers, shakes, or chills. He notes that he did have a bowel movement earlier today and it was very watery but was nonbloody. He notes he has never had any prior abdominal surgeries. 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 In the emergency department patient had labs and imaging which independent reviewed pelvis showed the patient had marked thickening of the terminal ileum and cecum with mucosal hyperemia which was concerning for active inflammatory bowel disease. There is also high-grade narrowing and stricture of the terminal ileum resulting in upstream high-grade small bowel obstruction. The proximal appendix was dilated and inflamed however the distal appendix was noted be normal in caliber. Interpreting radiologist felt that the inflammation was likely secondary to his inflammatory bowel disease flare. There is no evidence of pneumoperitoneum or fistula. Labs include a CBC her white blood cell count and hematocrit were normal. His platelet count was also normal. His hemoglobin was slightly low at 13.3. Chemistry profile showed sodium, potassium, BUN, and creatinine were normal. There is no elevation of LFTs or lipase. Urinalysis was not indicative of infection and a COVID test was negative. Since arrival to the emergency the patient has had an NG tube placed and he has noted some improvement of his abdominal symptomatology. At the time of my interview he was resting comfortably in bed and he was in no distress Allergies Allergy/AdvReac Type Severity Reaction Status Date / Time No Known Allergies Allergy Unverified 01/04/22 17:54 Home Medications Medication Instructions Recorded Confirmed Type esomeprazole magnesium 40 mg 40 mg PO DAILY 01/04/22 01/04/22 History capsule,delayed release prednisone 10 mg tablet 40 mg PO .DAILY/UD 01/04/22 01/04/22 History ustekinumab 90 mg/mL subcutaneous 0 mg subcut Q2M 01/04/22 01/04/22 History syringe (Stelara) Patient History Medical History Crohn disease Surgical History No history of previous surgery Family History Father Hypertension Social History Smoking Status: Never smoker Feels Safe at Home: Yes Review of Systems Constitutional: no fever and no chills Eyes: no eye pain Ear, Nose, Mouth, Throat: no ear pain Respiratory: no cough and no dyspnea Cardiovascular: no chest pain Gastrointestinal: as per Subjective / HPI Genitourinary: no dysuria Musculoskeletal: no back pain Integumentary: no rash Neurologic: no localized weakness Physical Exam Constitutional: WD/WN, vitals as above Eyes: Wears glasses ENMT: Ears: no hearing impairment and no external ear abnormality Mouth: no oropharynx abnormality Neck: trachea midline Cardiovascular: Rate/Rhythm: regular rate and regular rhythm Gastrointestinal (Abdomen): Abdomen is soft, nonrigid, nondistended. At the time of my interview the patient had minimal to no pain with palpation whatsoever. There is no rebound tenderness or guarding. He did have an NG tube in place that was draining some clear bilious material Musculoskeletal: No calf tenderness Skin: no rashes Neurologic: moves all extremities Psychiatric: A+Ox3, euthymic affect Results & Data ([facility]) Vital Signs (Past 12 Hours) Vital Signs Temp Pulse Pulse Resp BP BP Pulse Ox 01/04/22 19:00 88 18 127/82 96 01/04/22 18:00 93 H 18 124/83 97 01/04/22 17:00 98 H 18 138/85 94 01/04/22 14:37 94 H 18 97 01/04/22 14:32 90 20 113/78 96 01/04/22 14:20 37.1 C 102 H 18 133/93 97 O2 Del Method 01/04/22 19:00 Room Air 01/04/22 18:00 Room Air 01/04/22 17:00 Room Air 01/04/22 14:37 Room Air 01/04/22 14:32 Room Air 01/04/22 14:20 Room Air PG Care Time/CCT Total # of Minutes Spent Total Time Spent with Patient: Total time spent is greater than 50% in coordination of care (as documented) at patient's floor/unit and/or counseling patient: Coding Level of Care Code 22194 Inpt Consult Level 5 Diagnoses Small bowel obstruction K56.609 Crohn's disease K50.90
[2022-01-04] MEDS: methylPREDNISolone 20 MG in SYRINGE 0 ML IV SCH (21:38)
[2022-01-04] MEDS: PANTOprazole 40 MG in SYRINGE 0 ML IV SCH (21:38)
[2022-01-04] MEDS: SODIUM CHLORIDE 0.9% 1000ML 1,000 ML IV SCH (21:41)
[2022-01-05] MEDS: SODIUM CHLORIDE 0.9% 1000ML 1,000 ML IV SCH ×3 (05:22→21:40)
[2022-01-05 07:35] LABS: Basophils # (auto) 0.02 K/uL (0-0.2); Basophils % (auto) 0.3 %; Eosinophils # (auto) 0.01 K/uL (0-0.50); Eosinophils % (auto) 0.1 %; Hematocrit (blood only) 33.2 % (40.1-51.0); Hemoglobin 10.7 g/dl (14.0-18.0); Immature Granulocytes # (auto) 0.03 K/uL (0.00-0.02); Immature Granulocytes % (auto) 0.4 %; Lymphocytes # (auto) 1.47 K/uL (1.2-3.4); Lymphocytes % (auto) 21.2 %; Mean Corpuscular Hemoglobin 26.2 pg (25.0-34.0); Mean Corpuscular Hgb Conc 32.2 g/dL (32.0-36.0); Mean Corpuscular Volume 81.2 fL (80.0-100.0); Mean Platelet Volume 10.1 fL (9.4-12.4); Monocytes # (auto) 0.81 K/uL (0.24-0.82); Monocytes % (auto) 11.7 %; Neutrophils # (auto) 4.61 K/uL (1.4-6.5); Neutrophils % (auto) 66.3 %; Platelet Count 273 K/uL (130-400); RDW Coefficient of Variation 14.4 % (11.5-14.5); RDW Standard Deviation 42.3 fL (36.4-46.3); Red Blood Count 4.09 M/uL (4.63-6.08); White Blood Count 6.95 K/ul (4.8-10.8)
[2022-01-05 08:24] LABS: Alanine Aminotransferase 25 U/L (7-52); Albumin Globulin Ratio 1.3 (0.9-2); Albumin Level 3.5 gm/dl (3.4-5.0); Alkaline Phosphatase 60 U/L (34-104); Anion Gap 3 (3-11); Aspartate Aminotransferase 10 U/L (13-39); BUN Creatinine Ratio 20.7 (10-20); Bilirubin,Total 0.8 mg/dl (0.2-1.0); Blood Urea Nitrogen 12 mg/dl (6-23); Calcium 8.7 mg/dl (8.5-10.1); Carbon Dioxide 28 mmol/L (21-32); Chloride 105 mmol/L (98-107); Creatinine Clr Calc Pharmacy 168.9 ml/min; Est GFR (African American) > 150.0 ml/min; Est GFR (Non-African American) 147.8 ml/min; Globulin 2.6 gm/dl (2.5-4.0); Glucose 107 mg/dl (70-99(Fasting)); Potassium 4.1 mmol/L (3.5-5.1); Sodium 136 mmol/L (136-145); Total Protein 6.1 gm/dl (6.0-8.3)
--- NOTE | 2022-01-05 08:32 | XRay Report ---
KUB CLINICAL HISTORY: Follow up on SBO COMPARISON STUDY: CT of the abdomen and pelvis January 04, 2022. FINDINGS: Tip of nasogastric tube is within the distal body of the stomach. Marked small bowel dilata tion has slightly improved since prior CT. Minimal colonic gas is noted. No rectal gas is identified. No radiographic evidence for pneumatosis, portal venous gas or free air on supine exam. IMPRESSION: 1. Findings consistent with a persistent small bowel obstruction, slightly improved since prior exam. 2. Tip of nasogastric tube within the body of the stomach. ACT 112: Negative or not required by law. Electronically signed by: Rudy Foy M.D. 01/05/2022 8:31 AM
--- NOTE | 2022-01-05 08:47 | Surgery Progress Note ---
Date of Service January 05, 2022 Assessment & Plan (1) Crohn's disease: Plan: Pt with recent diagnosis of Crohn's here with flare up resulting in SBO He is feeling symptomatically better with NGT in place,~400cc documented. KUB today revealed persistent SBO, but slightly improved Would continue NGT for now while awaiting return of bowel function Abdomen soft, non distended, non tender GI consultation pending, pt currently on IV solu-medrol No plans for surgical intervention at this time, hopeful SBO should resolve as flare up is managed (2) Small bowel obstruction: Admission and Anticipated Discharge Date Admission Date: January 04, 2022 Supervising Physician Co-Signing Physician Notes Patient seen and examined, labs and image reviewed, agree with above. 21-year-old male with recently diagnosed Crohn's disease presents with increasing abdominal discomfort. He is currently on a prednisone taper and started Stelara. He is feeling better today. GI has seen him and started him on IV steroids. No flatus or bowel movement yet. On exam he is afebrile stable vitals, abdomen soft, nontender, nondistended. Labs unremarkable. Personally viewed and interpreted CT scan which showed thickened and slightly inflamed terminal ileum with dilated loops of bowel proximally. Continue NG tube, n.p.o., IV fluids. No surgical intervention at this time. Surgery continue to follow. Subjective Patient feeling somewhat better. Abdominal pain improved. Complains of sore throat related to NGT. No return of bowel function yet. Physical Exam Physical Exam: awake/alert, no distress Gastrointestinal (Abdomen): Inspection/Auscultation: abdomen not distended Percussion/Palpation: abdomen soft; abdomen nontender NGT with 400cc documented, bilious drainage Results & Data ([facility]) Vital Signs (Past 12 Hours) Vital Signs Temp Pulse Resp BP Pulse Ox O2 Del Method 01/05/22 07:55 36.7 C 70 16 125/72 98 Room Air 01/04/22 21:49 36.8 C 86 126/76 97 Room Air PG Care Time/CCT Total # of Minutes Spent Total Time Spent with Patient: Total time spent is greater than 50% in coordination of care (as documented) at patient's floor/unit and/or counseling patient: Coding Level of Care Code 47787 Subseq Hosp Care Lvl 1 Diagnoses Crohn's disease K50.90 Small bowel obstruction K56.600
[2022-01-05] MEDS ORDERED: HEPARIN SOD 5,000 UNIT/0.5 ML VIAL SQ SCH (09:00)
[2022-01-05] MEDS: methylPREDNISolone 20 MG in SYRINGE 0 ML IV SCH ×3 (09:25→19:56)
[2022-01-05] MEDS: PANTOprazole 40 MG in SYRINGE 0 ML IV SCH ×2 (09:25→19:57)
--- NOTE | 2022-01-05 10:02 | Gastrointestinal Consultation ---
Date of Consultation January 05, 2022 Assessment & Plan (1) Small bowel obstruction: (2) Crohn's disease: Plan Discussed case with Dr. Birmingham who advised on plan. - continue methylprednisone 20mg TID. - will work on coordinating future stelara doses. - Continue NPO, IVF, NG at this time. surgery also following. - At discharge will need to restart prednisone taper at 40mg with 5 mg a week taper. He can follow up with our office as outpatient. Supervising Physician Co-Signing Physician Notes I personally evaluated the patient and agree with the findings as documented by GINO Rogers Exam: Constitutional: WD/WN, vitals as above General: EOM intact bilaterally Neck: normal visual inspection Respiratory: normal respiratory effort, lungs clear to auscultation Cardiovascular: RRR, no murmur, no edema Gastrointestinal: abdomennormal to inspection, nondistended, soft, nontender, no hepatosplenomegaly Musculoskeletal: no cyanosis, head normal to inspection Skin: no rashes, warm and dry Neurologic: moves all extremities Psychiatric: A and O x3, euthymic affect History of Present Illness Reason for Consultation: Crohn's Requesting Physician: Dr. Lonny Guthrie Attending Physician: Lonny Guthrie MD History of Present Illness Patient is a 21 year old male with past medical history of Crohn's disease who presents to the ED with symptoms of nausea, vomiting and abdominal pain that started about 4 days ago. Since Wednesday of last week, he started to experience episodes of nausea and vomiting containing food particles and occasionally dark brown in color as well. He also admits to Abdominal pain that was cramping in nature, intermittent, nonradiating with no aggravating and relieved on bowel movement.He admits that this concerned him for bleeding given the dark emesis so he proceeded to the ED.He had CT abdomen and pelvis done which showed marked wall thickening of the terminal ileum and cecum with mucosal hyperemia compatible with active inflammatory bowel disease. There is a high-grade narrowing/stricture of terminal ileum. Patient was started on IV fluids, NG tube was placed for decompression. Surgery was consulted and patient was admitted to general medical floor. He tells me he that symptoms have improved since NG was placed. abdominal pain improved. no further nausea or vomiting. He tells me last bowel movement was yesterday. typically he has 1-2 bowel movements a day. no bleeding. no melena. He was diagnosed with Crohn's disease in October 2021. He was initially given a tapering course of prednisone and was started on Stelara. He follows with a gastroenterology group in [place] with Dr. Jamel Zacarias. He was recently prescribed prednisone taper by his gastroenterology due to increasing symptoms since he does not have a local GI group that he sees while he is at school at [employer]. He tells me that prior to admission he was on 20 mg of prednisone. He reports that he had undergone colonoscopy in the summer which showed narrowing at the terminal ileum. He admits he has only had one dose of Stelara and was supposed to have his additional doses sometime in the next week but he has been unable to get this coordinated through his GI from home. Allergies Allergy/AdvReac Type Severity Reaction Status Date / Time No Known Allergies Allergy Unverified 01/04/22 17:54 Home Medications Medication Instructions Recorded Confirmed Type esomeprazole magnesium 40 mg 40 mg PO DAILY 01/04/22 01/04/22 History capsule,delayed release prednisone 10 mg tablet 40 mg PO .DAILY/UD 01/04/22 01/04/22 History ustekinumab 90 mg/mL subcutaneous 0 mg subcut Q2M 01/04/22 01/04/22 History syringe (Stelara) Patient History Medical History Crohn disease Surgical History No history of previous surgery Family History Father Hypertension Social History Smoking Status: Never smoker Hx Alcohol Use: No Hx Substance Use: No Preferred Language: Yi Communication Ability: Effective Research Program Coordinator Required: No Beliefs That Will Affect Care: None Current Living Situation: Other Current Living Situation Comment: lives in dorm at [employer] Feels Safe at Home: Yes Assistive Devices: None Review of Systems Review of Systems: All systems reviewed & are unremarkable except as noted in HPI & below Physical Exam Constitutional: WD/WN, vitals as above Respiratory: normal respiratory effort, lungs clear to auscultation Cardiovascular: RRR, no murmur, no edema Gastrointestinal (Abdomen): NG in place. abdomen soft, nondistended, nontender. Skin: no rashes, warm and dry Psychiatric: Orientation: alert and oriented x 3 Affect: euthymic affect Results & Data ([facility]) Vital Signs (Past 12 Hours) Vital Signs Temp Pulse Resp BP Pulse Ox O2 Del Method 01/05/22 07:55 36.7 C 70 16 125/72 98 Room Air PG Care Time/CCT Total # of Minutes Spent Total Time Spent with Patient: Total time spent is greater than 50% in coordination of care (as documented) at patient's floor/unit and/or counseling patient: Coding Level of Care Code 23382 Office/OBS Consult Lvl 4 Diagnoses Small bowel obstruction K56.609 Crohn's disease K50.90
--- NOTE | 2022-01-05 14:52 | Hospitalist Progress Note ---
Date of Service January 05, 2022 Assessment & Plan (1) Crohn's disease: (2) Small bowel obstruction: Plan Patient is a 21-year-old male with past medical history of Crohn's disease who presents to the ED with 3-day of nausea, vomiting and abdominal pain. On presentation to the ED, he was normotensive afebrile and saturating room well in room air. Hemoglobin is 13.3. BMP was unremarkable. CT abdomen and pelvis showed marked wall thickening of the terminal ileum and cecum with mucosal hyperemia compatible with active inflammatory bowel disease. There is a high- grade narrowing/stricture of terminal ileum. Patient was started on IV fluids, NG tube was placed for decompression. Surgery was consulted and patient was admitted to general medical floor. Crohn's disease Small bowel obstruction Afebrile, normotensive and saturating well in room air. Leukocytosis absent Electrolytes within normal limits. CT abdomen on admission as above KUB today showed improvement in small bowel obstruction. CRP mildly elevated to 0.8 Plan; Continue with conservative management. NG tube to be continues as per recommendation by surgery. IV Tylenol for pain; minimize narcotics. Continue on on methylprednisolone 20 mg IV 3 times daily. At discharge, GI recommends to restart prednisone at 40 mg with 5 mg taper. Full code DVT prophylaxis Heparin DispoHome after resolution of medical issues Discussed with patient's father at bedside; contact [phone] Admission and Anticipated Discharge Date Admission Date: January 04, 2022 Subjective Patient seen and examined at bedside. Abdominal discomfort has improved compared to presentation. Nasogastric tube shows output of 950 mL since admission. Review of Systems Review of Systems: All systems reviewed & are unremarkable except as noted in Subjective Physical Exam Physical Exam: Constitutional: WD/WN, vitals as above, NAD, sitting up in bed, pleasant, conversing easily ENMT: NG tube in place draining dark-colored output. Neck: trachea midline, no thyromegaly normal visual inspection Respiratory: normal respiratory effort, lungs clear to auscultation, no wheeze, rales, rhonchi. Normal insp/exp effort, no accessory muscle use Cardiovascular: RRR, no murmur, no edema Vessels: no JVD or carotid bruit Chest: normal inspection of chest Abdomen: Hyperactive bowel movement. Distention improved compared to presentation. Tenderness absent. Musculoskeletal: no cyanosis or clubbing, extremities motor strength 5/5 Skin: no rashes, warm and dry normal turgor Neurologic: PERRL, EOMI, accommodation nl, no face palsy, no dysarthria CN's II- XI intact bilaterally and moves all extremities Psychiatric: A+Ox3, euthymic affect Lymphatic: no cervical or axillary lymphadenopathy : deferred Results & Data Results & Data ([facility]) Vital Signs (Past 12 Hours) Vital Signs Temp Pulse Resp BP Pulse Ox O2 Del Method 01/05/22 07:55 36.7 C 70 16 125/72 98 Room Air Laboratory Results Laboratory Results WBC 6.95 K/ul (4.8-10.8) 01/05/22 06:42 RBC 4.09 M/uL (4.63-6.08) L 01/05/22 06:42 Hgb 10.7 g/dl (14.0-18.0) L 01/05/22 06:42 Hct 33.2 % (40.1-51.0) L 01/05/22 06:42 MCV 81.2 fL (80.0-100.0) 01/05/22 06:42 MCH 26.2 pg (25.0-34.0) 01/05/22 06:42 MCHC 32.2 g/dL (32.0-36.0) 01/05/22 06:42 RDW Std Deviation 42.3 fL (36.4-46.3) 01/05/22 06:42 RDW Coeff of Андрей 14.4 % (11.5-14.5) 01/05/22 06:42 Plt Count 273 K/uL (130-400) 01/05/22 06:42 MPV 10.1 fL (9.4-12.4) 01/05/22 06:42 Immature Gran % (Auto) 0.4 % 01/05/22 06:42 Neut % (Auto) 66.3 % 01/05/22 06:42 Lymph % (Auto) 21.2 % 01/05/22 06:42 [place] % (Auto) 11.7 % 01/05/22 06:42 Eos % (Auto) 0.1 % 01/05/22 06:42 Baso % (Auto) 0.3 % 01/05/22 06:42 Neut # (Auto) 4.61 K/uL (1.4-6.5) 01/05/22 06:42 Lymph # (Auto) 1.47 K/uL (1.2-3.4) 01/05/22 06:42 [place] # (Auto) 0.81 K/uL (0.24-0.82) 01/05/22 06:42 Eos # (Auto) 0.01 K/uL (0-0.50) 01/05/22 06:42 Baso # (Auto) 0.02 K/uL (0-0.2) 01/05/22 06:42 Immature Gran # (Auto) 0.03 K/uL (0.00-0.02) H 01/05/22 06:42 Sodium 136 mmol/L (136-145) 01/05/22 06:42 Potassium 4.1 mmol/L (3.5-5.1) 01/05/22 06:42 Chloride 105 mmol/L (98-107) 01/05/22 06:42 Carbon Dioxide 28 mmol/L (21-32) 01/05/22 06:42 Anion Gap 3 (3-11) 01/05/22 06:42 BUN 12 mg/dl (6-23) 01/05/22 06:42 Creatinine 0.58 mg/dl (0.6-1.4) L 01/05/22 06:42 Est Cr Clr Drug Dosing 168.9 ml/min 01/05/22 06:42 Est GFR ( Amer) > 150.0 ml/min 01/05/22 06:42 Est GFR (Non-Af Amer) 147.8 ml/min 01/05/22 06:42 BUN/Creatinine Ratio 20.7 (10-20) H 01/05/22 06:42 Glucose 107 mg/dl (70-99(Fasting)) H 01/05/22 06:42 Calcium 8.7 mg/dl (8.5-10.1) 01/05/22 06:42 Total Bilirubin 0.8 mg/dl (0.2-1.0) 01/05/22 06:42 AST 10 U/L (13-39) L 01/05/22 06:42 ALT 25 U/L (7-52) 01/05/22 06:42 Alkaline Phosphatase 60 U/L (34-104) 01/05/22 06:42 C-Reactive Protein 0.80 mg/dl (0-0.5) H 01/05/22 06:42 Total Protein 6.1 gm/dl (6.0-8.3) D 01/05/22 06:42 Albumin 3.5 gm/dl (3.4-5.0) 01/05/22 06:42 Globulin 2.6 gm/dl (2.5-4.0) 01/05/22 06:42 Albumin/Globulin Ratio 1.3 (0.9-2) 01/05/22 06:42 Lipase 18 U/L (11-82) 01/04/22 14:45 Urine Color Dark Yellow 01/04/22 17:14 Urine Appearance Cloudy (Clear) A 01/04/22 17:14 Urine pH 5.5 (4.5-7.5) 01/04/22 17:14 Ur Specific [place] 1.035 (1.000-1.030) H 01/04/22 17:14 Urine Protein 1+ (Negative) H 01/04/22 17:14 Urine Glucose (UA) Trace (Negative) H 01/04/22 17:14 Urine Ketones 3+ (Negative) H 01/04/22 17:14 Urine Blood Negative (Negative) 01/04/22 17:14 Urine Nitrite Negative (Negative) 01/04/22 17:14 Urine Bilirubin 1+ (Negative) H 01/04/22 17:14 Urine Urobilinogen Negative (Negative) 01/04/22 17:14 Ur Leukocyte Esterase Negative (Negative) 01/04/22 17:14 Urine WBC (Auto) 1-5 /hpf (0-5) 01/04/22 17:14 Urine RBC (Auto) 0-4 /hpf (0-4) 01/04/22 17:14 U Hyaline Cast (Auto) 1-5 /lpf (0-5) 01/04/22 17:14 U Epithel Cells (Auto) 10-20 /lpf (0-5) H 01/04/22 17:14 Urine Bacteria (Auto) Negative (Negative) 01/04/22 17:14 Urine Crystals Not Reportable 01/04/22 17:14 Calcium Oxalate Crystal Present (None Prsent) A 01/04/22 17:14 Urine Mucus Present (None Prsent) A 01/04/22 17:14 SARS-CoV-2, RNA, NAAT NEGATIVE (NEGATIVE) 01/04/22 17:35 Impressions Abdomen/Pelvis CT 01/04/22 14:[address] WITH IV CONTRAST CT DOSE: 292.03 mGy.cm HISTORY: Acute upper abdominal pain with nausea and vomiting. History of Crohn's disease upper abd pain, coffee ground emesis, hx of crohns TECHNIQUE: Multiaxial CT images of the abdomen and pelvis were performed following the IV administration of 91 cc of Optiray, A dose lowering technique was utilized adhering to the principles of ALARA. COMPARISON STUDY: None. FINDINGS: Clear lung bases. Unremarkable spleen, pancreas, gallbladder, adrenal glands and liver. Patency of the hepatic and portal veins. Unremarkable kidneys. No hydronephrosis. Decompressed urinary bladder. Aorta and IVC are unremarkable. Mildly enlarged mesenteric lymph nodes measure up to approximately 11 mm in short axis. There is marked wall thickening with mucosal hyperemia involving the terminal ileum and cecum resulting in marked luminal narrowing at the terminal ileum. This results in high-grade small bowel obstruction. Small bowel is dilated up to 7.9 cm upstream to the site of obstruction. No fistula or sinus tract identified. The proximal appendix is dilated at 8 mm and demonstrates wall thickening. The mid to distal appendix is normal in caliber and is fluid-filled. Inflammatory stranding is noted adjacent to the cecum and appendix. Prominent lymph nodes of the right lower quadrant mesentery. Unremarkable soft tissues. No acute fracture. IMPRESSION: 1. Marked wall thickening of the terminal ileum and cecum with mucosal hyperemia compatible with acute active inflammatory bowel disease. There is high-grade narrowing/stricturing at the terminal ileum resulting in upstream high-grade small bowel obstruction with marked dilation of the small bowel. 2. The proximal appendix is dilated and inflamed measuring up to 8 mm with the mid and distal appendix normal in caliber. The inflammation is likely secondary to the inflammatory bowel disease as above, however concomitant acute appendicitis could appear similarly. 3. Likely reactive mesenteric lymphadenopathy. 4. No pneumoperitoneum, fistula or sinus tract identified. ACT 112: Negative or not required by law. The above report was generated using voice recognition software. It may contain grammatical, syntax or spelling errors. Electronically signed by: Russell Amor M.D. 01/04/2022 4:17 PM KUB X-Ray 01/05/22 04:44 KUB CLINICAL HISTORY: Follow up on SBO COMPARISON STUDY: CT of the abdomen and pelvis January 04, 2022. FINDINGS: Tip of nasogastric tube is within the distal body of the stomach. Marked small bowel dilatation has slightly improved since prior CT. Minimal colonic gas is noted. No rectal gas is identified. No radiographic evidence for pneumatosis, portal venous gas or free air on supine exam. IMPRESSION: 1. Findings consistent with a persistent small bowel obstruction, slightly improved since prior exam. 2. Tip of nasogastric tube within the body of the stomach. ACT 112: Negative or not required by law. Electronically signed by: Rudy Foy M.D. 01/05/2022 8:31 AM
[2022-01-05] MEDS ORDERED: BENZOCAINE/MENTHOL 18 LOZ/1 BOX MT PRN (14:56)
[2022-01-06] MEDS: SODIUM CHLORIDE 0.9% 1000ML 1,000 ML IV SCH ×3 (05:42→21:35)
[2022-01-06 07:17] LABS: Basophils # (auto) 0.01 K/uL (0-0.2); Basophils % (auto) 0.1 %; Eosinophils # (auto) 0.02 K/uL (0-0.50); Eosinophils % (auto) 0.2 %; Hematocrit (blood only) 32.9 % (40.1-51.0); Hemoglobin 10.8 g/dl (14.0-18.0); Immature Granulocytes # (auto) 0.02 K/uL (0.00-0.02); Immature Granulocytes % (auto) 0.2 %; Lymphocytes # (auto) 2.16 K/uL (1.2-3.4); Lymphocytes % (auto) 25.9 %; Mean Corpuscular Hemoglobin 26.2 pg (25.0-34.0); Mean Corpuscular Hgb Conc 32.8 g/dL (32.0-36.0); Mean Corpuscular Volume 79.7 fL (80.0-100.0); Mean Platelet Volume 10.1 fL (9.4-12.4); Monocytes # (auto) 1.19 K/uL (0.24-0.82); Monocytes % (auto) 14.3 %; Neutrophils # (auto) 4.94 K/uL (1.4-6.5); Neutrophils % (auto) 59.3 %; Platelet Count 270 K/uL (130-400); RDW Coefficient of Variation 14.4 % (11.5-14.5); RDW Standard Deviation 41.5 fL (36.4-46.3); Red Blood Count 4.13 M/uL (4.63-6.08); White Blood Count 8.34 K/ul (4.8-10.8)
[2022-01-06 07:48] LABS: Anion Gap 8 (3-11); BUN Creatinine Ratio 22.6 (10-20); Blood Urea Nitrogen 12 mg/dl (6-23); Calcium 8.8 mg/dl (8.5-10.1); Carbon Dioxide 26 mmol/L (21-32); Chloride 102 mmol/L (98-107); Creatinine Clr Calc Pharmacy 184.9 ml/min; Est GFR (African American) > 150.0 ml/min; Est GFR (Non-African American) > 150.0 ml/min; Glucose 97 mg/dl (70-99(Fasting)); Potassium 3.9 mmol/L (3.5-5.1); Sodium 136 mmol/L (136-145)
--- NOTE | 2022-01-06 08:51 | Surgery Progress Note ---
Date of Service January 06, 2022 Assessment & Plan (1) Crohn's disease: Plan: Pt with recent diagnosis of Crohn's here with flare up resulting in SBO He is feeling improvement in symptoms since admission, NGT ~425cc last shift Abdomen soft, non distended, non tender He is passing flatus, no BM yet KUB pending, if improvement can consider NGT clamp trial GI following and making recs regarding steroids and stelera doses No plans for surgical intervention (2) Small bowel obstruction: Admission and Anticipated Discharge Date Admission Date: January 04, 2022 Supervising Physician Co-Signing Physician Notes Patient seen and examined, labs and image reviewed, agree with above. 21-year-old male with Crohn's disease and resultant small bowel obstruction. He is feeling better and not having any pain. He is passing flatus. On exam he is afebrile stable vitals. His abdomen is soft, nontender, nondistended. KUB with persistent dilation of the small bowel that may be slightly improved. As he is clinically improving, we will trial clamping of the NG tube with potential removal. We will slowly advance his diet as tolerated. No surgical intervention at this time. Appreciate GI and medicine management of this patient. Subjective Patient feeling better than admission. Denies abdominal pain/n/v. Reports passing flatus. No bm. Physical Exam Physical Exam: awake/alert, no distres Gastrointestinal (Abdomen): Inspection/Auscultation: abdomen not distended Percussion/Palpation: abdomen soft; abdomen nontender NGT 425cc/last shift, bilious Results & Data ([facility]) Vital Signs (Past 12 Hours) Vital Signs Temp Pulse Resp BP Pulse Ox O2 Del Method 01/06/22 07:46 36.6 C 78 16 114/68 98 Room Air 01/05/22 22:50 36.7 C 66 14 116/68 96 Room Air PG Care Time/CCT Total # of Minutes Spent Total Time Spent with Patient: Total time spent is greater than 50% in coordination of care (as documented) at patient's floor/unit and/or counseling patient: Coding Level of Care Code 89359 Subseq Hosp Care Lvl 1 Diagnoses Crohn's disease K50.90 Small bowel obstruction K56.609
--- NOTE | 2022-01-06 09:34 | Gastroenterology Progress Note ---
Date of Service January 06, 2022 Assessment & Plan (1) Small bowel obstruction: (2) Crohn's disease: Plan - Will await KUB results from today. - recommend daily KUB until SBO resolves. - Once recovered from acute events, can plan on giving dose of stelara. okay to hold at this time until SBO resolves in case he would need surgical evaluation. Admission and Anticipated Discharge Date Admission Date: January 04, 2022 Subjective Patient tells me he has been feeling better since addition of steroids and NG. no abdominal pain, nausea, vomiting, heartburn. He has not had bowel movement since yesterday but tells me he is now starting to pass gas. He had KUB this morning but results are pending. Patient's parents did bring in his dose of stelara. Review of Systems Review of Systems: All systems reviewed & are unremarkable except as noted in HPI & below Physical Exam Constitutional: WD/WN, vitals as above Respiratory: normal respiratory effort, lungs clear to auscultation Cardiovascular: RRR, no murmur, no edema Gastrointestinal (Abdomen): NG in place. normal bowel sounds, soft, nontender. Skin: no rashes, warm and dry Psychiatric: Orientation: alert and oriented x 3 Results & Data Results & Data ([facility]) Vital Signs (Past 12 Hours) Vital Signs Temp Pulse Resp BP Pulse Ox O2 Del Method 01/06/22 07:46 36.6 C 78 16 114/68 98 Room Air 01/05/22 22:50 36.7 C 66 14 116/68 96 Room Air PG Care Time/CCT Total # of Minutes Spent Total Time Spent with Patient: Total time spent is greater than 50% in coordination of care (as documented) at patient's floor/unit and/or counseling patient: Coding Level of Care Code 00578 Subseq Hosp Care Lvl 2 Diagnoses Small bowel obstruction K56.609 Crohn's disease K50.90
[2022-01-06] MEDS: PANTOprazole 40 MG in SYRINGE 0 ML IV SCH (09:37)
[2022-01-06] MEDS: methylPREDNISolone 20 MG in SYRINGE 0 ML IV SCH ×3 (09:37→21:36)
--- NOTE | 2022-01-06 11:05 | XRay Report ---
KUB CLINICAL HISTORY: Small bowel obstruction. FINDINGS: 3 AP supine abdominal radiographs are compared to study dated 01/05/2022 and correlated with abdominal CT dated 01/04/2022. An enteric tube projects over the proximal stomach. There is evidence of persistent small bowel obstruction. Small bowel loops measure up to 6 cm in diameter. Gas is seen in the right colon. No evidence of intraperitoneal free air is seen on these supine images. There are no abnormal abdominal calcifications. The bony structures appear intact. IMPRESSION: Persistent small bowel obstruction. This is similar to yesterday. Electronically signed by: Daniel Bravo M.D. 01/06/2022 11:04 AM
--- NOTE | 2022-01-06 14:22 | Hospitalist Progress Note ---
Date of Service January 06, 2022 Assessment & Plan (1) Crohn's disease: (2) Small bowel obstruction: Plan Patient is a 21-year-old male with past medical history of Crohn's disease who presents to the ED with 3-day of nausea, vomiting and abdominal pain. On presentation to the ED, he was normotensive afebrile and saturating room well in room air. Hemoglobin is 13.3. BMP was unremarkable. CT abdomen and pelvis showed marked wall thickening of the terminal ileum and cecum with mucosal hyperemia compatible with active inflammatory bowel disease. There is a high- grade narrowing/stricture of terminal ileum. Patient was started on IV fluids, NG tube was placed for decompression. Surgery was consulted and patient was admitted to general medical floor. Crohn's disease Small bowel obstruction Afebrile, normotensive and saturating well in room air. Leukocytosis absent Electrolytes within normal limits. CT abdomen on admission as above KUB today similar to yesterday. Slight improvement on SBO since admission. CRP mildly elevated to 0.8 Plan; Continue with conservative management. NG tube clamped at 12 p.m. If he continues to do well; plan to remove the NG tube and start on clear liquid diet. Surgery on board. IV Tylenol for pain; minimize narcotics. Continue on on methylprednisolone 20 mg IV 3 times daily. At discharge, GI recommends to restart prednisone at 40 mg with 5 mg taper. Other condition: Esophagitis- Found on his EGD in October. on protonix iv currently Full code DVT prophylaxis SCDs due to concern of coffee ground vomiting on admission.. Hb stable. DispoHome after resolution of medical issues Patient;s father contact [phone] Admission and Anticipated Discharge Date Admission Date: January 04, 2022 Subjective Patient seen and examined at bedside. He is passing gas; no bowel movement yet. He feels his abdomen is less distended compared to yesterday. NG tube output from 6 AM to 12 PM was 150 cc. NG tube is clamped presently. Review of Systems Review of Systems: All systems reviewed & are unremarkable except as noted in Subjective Physical Exam Physical Exam: Constitutional: WD/WN, vitals as above, NAD, sitting up in bed, pleasant, conversing easily ENMT: NG tube in place draining dark-colored output. Neck: trachea midline, no thyromegaly normal visual inspection Respiratory: normal respiratory effort, lungs clear to auscultation, no wheeze, rales, rhonchi. Normal insp/exp effort, no accessory muscle use Cardiovascular: RRR, no murmur, no edema Vessels: no JVD or carotid bruit Chest: normal inspection of chest Abdomen: Hyperactive bowel movement. Distention improved compared to presentation. Tenderness absent. Musculoskeletal: no cyanosis or clubbing, extremities motor strength 5/5 Skin: no rashes, warm and dry normal turgor Neurologic: PERRL, EOMI, accommodation nl, no face palsy, no dysarthria CN's II- XI intact bilaterally and moves all extremities Psychiatric: A+Ox3, euthymic affect Lymphatic: no cervical or axillary lymphadenopathy : deferred Results & Data Results & Data ([facility]) Vital Signs (Past 12 Hours) Vital Signs Temp Pulse Resp BP Pulse Ox O2 Del Method 01/06/22 11:25 37.0 C 76 18 109/70 98 Room Air 01/06/22 07:46 36.6 C 78 16 114/68 98 Room Air Laboratory Results Laboratory Results WBC 8.34 K/ul (4.8-10.8) 01/06/22 06:40 RBC 4.13 M/uL (4.63-6.08) L 01/06/22 06:40 Hgb 10.8 g/dl (14.0-18.0) L 01/06/22 06:40 Hct 32.9 % (40.1-51.0) L 01/06/22 06:40 MCV 79.7 fL (80.0-100.0) L 01/06/22 06:40 MCH 26.2 pg (25.0-34.0) 01/06/22 06:40 MCHC 32.8 g/dL (32.0-36.0) 01/06/22 06:40 RDW Std Deviation 41.5 fL (36.4-46.3) 01/06/22 06:40 RDW Coeff of Андрей 14.4 % (11.5-14.5) 01/06/22 06:40 Plt Count 270 K/uL (130-400) 01/06/22 06:40 MPV 10.1 fL (9.4-12.4) 01/06/22 06:40 Immature Gran % (Auto) 0.2 % 01/06/22 06:40 Neut % (Auto) 59.3 % 01/06/22 06:40 Lymph % (Auto) 25.9 % 01/06/22 06:40 [place] % (Auto) 14.3 % 01/06/22 06:40 Eos % (Auto) 0.2 % 01/06/22 06:40 Baso % (Auto) 0.1 % 01/06/22 06:40 Neut # (Auto) 4.94 K/uL (1.4-6.5) 01/06/22 06:40 Lymph # (Auto) 2.16 K/uL (1.2-3.4) 01/06/22 06:40 [place] # (Auto) 1.19 K/uL (0.24-0.82) H 01/06/22 06:40 Eos # (Auto) 0.02 K/uL (0-0.50) 01/06/22 06:40 Baso # (Auto) 0.01 K/uL (0-0.2) 01/06/22 06:40 Immature Gran # (Auto) 0.02 K/uL (0.00-0.02) 01/06/22 06:40 Sodium 136 mmol/L (136-145) 01/06/22 06:40 Potassium 3.9 mmol/L (3.5-5.1) 01/06/22 06:40 Chloride 102 mmol/L (98-107) 01/06/22 06:40 Carbon Dioxide 26 mmol/L (21-32) 01/06/22 06:40 Anion Gap 8 (3-11) 01/06/22 06:40 BUN 12 mg/dl (6-23) 01/06/22 06:40 Creatinine 0.53 mg/dl (0.6-1.4) L 01/06/22 06:40 Est Cr Clr Drug Dosing 184.9 ml/min 01/06/22 06:40 Est GFR ( Amer) > 150.0 ml/min 01/06/22 06:40 Est GFR (Non-Af Amer) > 150.0 ml/min 01/06/22 06:40 BUN/Creatinine Ratio 22.6 (10-20) H 01/06/22 06:40 Glucose 97 mg/dl (70-99(Fasting)) 01/06/22 06:40 Calcium 8.8 mg/dl (8.5-10.1) 01/06/22 06:40 Total Bilirubin 0.8 mg/dl (0.2-1.0) 01/05/22 06:42 AST 10 U/L (13-39) L 01/05/22 06:42 ALT 25 U/L (7-52) 01/05/22 06:42 Alkaline Phosphatase 60 U/L (34-104) 01/05/22 06:42 C-Reactive Protein 0.80 mg/dl (0-0.5) H 01/05/22 06:42 Total Protein 6.1 gm/dl (6.0-8.3) D 01/05/22 06:42 Albumin 3.5 gm/dl (3.4-5.0) 01/05/22 06:42 Globulin 2.6 gm/dl (2.5-4.0) 01/05/22 06:42 Albumin/Globulin Ratio 1.3 (0.9-2) 01/05/22 06:42 Lipase 18 U/L (11-82) 01/04/22 14:45 Urine Color Dark Yellow 01/04/22 17:14 Urine Appearance Cloudy (Clear) A 01/04/22 17:14 Urine pH 5.5 (4.5-7.5) 01/04/22 17:14 Ur Specific [place] 1.035 (1.000-1.030) H 01/04/22 17:14 Urine Protein 1+ (Negative) H 01/04/22 17:14 Urine Glucose (UA) Trace (Negative) H 01/04/22 17:14 Urine Ketones 3+ (Negative) H 01/04/22 17:14 Urine Blood Negative (Negative) 01/04/22 17:14 Urine Nitrite Negative (Negative) 01/04/22 17:14 Urine Bilirubin 1+ (Negative) H 01/04/22 17:14 Urine Urobilinogen Negative (Negative) 01/04/22 17:14 Ur Leukocyte Esterase Negative (Negative) 01/04/22 17:14 Urine WBC (Auto) 1-5 /hpf (0-5) 01/04/22 17:14 Urine RBC (Auto) 0-4 /hpf (0-4) 01/04/22 17:14 U Hyaline Cast (Auto) 1-5 /lpf (0-5) 01/04/22 17:14 U Epithel Cells (Auto) 10-20 /lpf (0-5) H 01/04/22 17:14 Urine Bacteria (Auto) Negative (Negative) 01/04/22 17:14 Urine Crystals Not Reportable 01/04/22 17:14 Calcium Oxalate Crystal Present (None Prsent) A 01/04/22 17:14 Urine Mucus Present (None Prsent) A 01/04/22 17:14 SARS-CoV-2, RNA, NAAT NEGATIVE (NEGATIVE) 01/04/22 17:35 Impressions Abdomen/Pelvis CT 01/04/22 14:[address] WITH IV CONTRAST CT DOSE: 292.03 mGy.cm HISTORY: Acute upper abdominal pain with nausea and vomiting. History of Crohn's disease upper abd pain, coffee ground emesis, hx of crohns TECHNIQUE: Multiaxial CT images of the abdomen and pelvis were performed following the IV administration of 91 cc of Optiray, A dose lowering technique was utilized adhering to the principles of ALARA. COMPARISON STUDY: None. FINDINGS: Clear lung bases. Unremarkable spleen, pancreas, gallbladder, adrenal glands and liver. Patency of the hepatic and portal veins. Unremarkable kidneys. No hydronephrosis. Decompressed urinary bladder. Aorta and IVC are unremarkable. Mildly enlarged mesenteric lymph nodes measure up to approximately 11 mm in short axis. There is marked wall thickening with mucosal hyperemia involving the terminal ileum and cecum resulting in marked luminal narrowing at the terminal ileum. This results in high-grade small bowel obstruction. Small bowel is dilated up to 7.9 cm upstream to the site of obstruction. No fistula or sinus tract identified. The proximal appendix is dilated at 8 mm and demonstrates wall thickening. The mid to distal appendix is normal in caliber and is fluid-filled. Inflammatory stranding is noted adjacent to the cecum and appendix. Prominent lymph nodes of the right lower quadrant mesentery. Unremarkable soft tissues. No acute fracture. IMPRESSION: 1. Marked wall thickening of the terminal ileum and cecum with mucosal hyperemia compatible with acute active inflammatory bowel disease. There is high-grade narrowing/stricturing at the terminal ileum resulting in upstream high-grade small bowel obstruction with marked dilation of the small bowel. 2. The proximal appendix is dilated and inflamed measuring up to 8 mm with the mid and distal appendix normal in caliber. The inflammation is likely secondary to the inflammatory bowel disease as above, however concomitant acute appendicitis could appear similarly. 3. Likely reactive mesenteric lymphadenopathy. 4. No pneumoperitoneum, fistula or sinus tract identified. ACT 112: Negative or not required by law. The above report was generated using voice recognition software. It may contain grammatical, syntax or spelling errors. Electronically signed by: Russell Amor M.D. 01/04/2022 4:17 PM KUB X-Ray 01/06/22 04:44 KUB CLINICAL HISTORY: Small bowel obstruction. FINDINGS: 3 AP supine abdominal radiographs are compared to study dated 01/05/2022 and correlated with abdominal CT dated 01/04/2022. An enteric tube projects over the proximal stomach. There is evidence of persistent small bowel obstruction. Small bowel loops measure up to 6 cm in diameter. Gas is seen in the right colon. No evidence of intraperitoneal free air is seen on these supine images. There are no abnormal abdominal calcifications. The bony structures appear intact. IMPRESSION: Persistent small bowel obstruction. This is similar to yesterday. Electronically signed by: Daniel Bravo M.D. 01/06/2022 11:04 AM
[2022-01-07] MEDS: SODIUM CHLORIDE 0.9% 1000ML 1,000 ML IV SCH (04:40)
[2022-01-07 06:33] LABS: Basophils # (auto) 0.01 K/uL (0-0.2); Basophils % (auto) 0.2 %; Hematocrit (blood only) 36.2 % (40.1-51.0); Immature Granulocytes # (auto) 0.02 K/uL (0.00-0.02); Immature Granulocytes % (auto) 0.3 %; Lymphocytes # (auto) 1.21 K/uL (1.2-3.4); Lymphocytes % (auto) 20.3 %; Mean Corpuscular Hemoglobin 26.8 pg (25.0-34.0); Mean Corpuscular Hgb Conc 33.1 g/dL (32.0-36.0); Mean Corpuscular Volume 80.8 fL (80.0-100.0); Mean Platelet Volume 9.9 fL (9.4-12.4); Monocytes # (auto) 0.68 K/uL (0.24-0.82); Monocytes % (auto) 11.4 %; Neutrophils # (auto) 4.05 K/uL (1.4-6.5); Neutrophils % (auto) 67.8 %; Platelet Count 295 K/uL (130-400); RDW Coefficient of Variation 14.4 % (11.5-14.5); RDW Standard Deviation 41.9 fL (36.4-46.3); Red Blood Count 4.48 M/uL (4.63-6.08); White Blood Count 5.97 K/ul (4.8-10.8)
[2022-01-07 07:06] LABS: Anion Gap 6 (3-11); BUN Creatinine Ratio 18.5 (10-20); Blood Urea Nitrogen 10 mg/dl (6-23); Carbon Dioxide 28 mmol/L (21-32); Chloride 103 mmol/L (98-107); Creatinine Clr Calc Pharmacy 181.4 ml/min; Est GFR (African American) > 150.0 ml/min; Est GFR (Non-African American) > 150.0 ml/min; Glucose 117 mg/dl (70-99(Fasting)); Potassium 4.3 mmol/L (3.5-5.1); Sodium 137 mmol/L (136-145)
[2022-01-07] MEDS: methylPREDNISolone 20 MG in SYRINGE 0 ML IV SCH ×3 (07:59→21:51)
[2022-01-07] MEDS: PANTOprazole 40 MG in SYRINGE 0 ML IV SCH (08:00)
--- NOTE | 2022-01-07 08:03 | Surgery Progress Note ---
Date of Service January 07, 2022 Assessment & Plan (1) Crohn's disease: Plan: SBO is resolving, pt passing flatus and has had BM x2 NGT removed yesterday and he has been started on a liquid diet He has no abdominal complaints and abdominal exam is benign Okay to continue to advance diet as tolerates Dispo planning per medicine, will need f/u with GI as outpt Please call back with questions/concerns (2) Small bowel obstruction: Admission and Anticipated Discharge Date Admission Date: January 04, 2022 Supervising Physician Co-Signing Physician Notes Pnt discussed with MELODY Castanon, agree with above. 21 y/o male with crohn's, partial sbo from ileitis. +flatus and bm, ng removed. tolerating clear liquids, slowly increase to low fiber as tolerated. F/u with GI as outpatient. Surgery will follow peripherally, call with questions or concerns. Subjective Patient feeling well. Tolerated NGT clamp trial and removal. Doing well with liquid diet thus far. Denies abdominal pain/nausea/vomiting. Is passing flatus as well as BMs. Physical Exam Physical Exam: awake/alert Gastrointestinal (Abdomen): Inspection/Auscultation: abdomen not distended Percussion/Palpation: abdomen soft; abdomen nontender Results & Data ([facility]) Vital Signs (Past 12 Hours) Vital Signs Temp Pulse Resp BP Pulse Ox O2 Del Method 01/07/22 07:17 36.5 C 44 L 16 105/65 98 Room Air 01/06/22 21:53 36.7 C 49 L 18 112/66 97 Room Air PG Care Time/CCT Total # of Minutes Spent Total Time Spent with Patient: Total time spent is greater than 50% in coordination of care (as documented) at patient's floor/unit and/or counseling patient: Coding Level of Care Code 02571 Subseq Hosp Care Lvl 1 Diagnoses Crohn's disease K50.90 Small bowel obstruction K56.609
--- NOTE | 2022-01-07 12:52 | XRay Report ---
KUB CLINICAL HISTORY: Small bowel obstruction. FINDINGS: 2 AP supine abdominal radiographs are compared to study dated 01/06/2022 and correlated with abdominal CT dated 01/04/2022. There is evidence of persistent small bowel obstruction. Small bowel loops measure up to 4 cm in diameter. Gas is seen in the right colon. No evidence of intraperitoneal free air is seen on these supine images. There are no abnormal abdominal calcifications. The bony str uctures appear intact. IMPRESSION: Persistent small bowel obstruction. Small bowel distention appears modestly improved from yesterday. Electronically signed by: Daniel Bravo M.D. 01/07/2022 12:50 PM
--- NOTE | 2022-01-07 18:50 | Hospitalist Progress Note ---
Date of Service January 07, 2022 Assessment & Plan (1) Crohn's disease: (2) Small bowel obstruction: Plan Patient is a 21 yr with H/O Crohn's disease who presents to the ED with 3-day of nausea, vomiting and abdominal pain. On presentation to the ED, he was normotensive afebrile and saturating room well in room air. Hemoglobin is 13.3. BMP was unremarkable. CT abdomen and pelvis showed marked wall thickening of the terminal ileum and cecum with mucosal hyperemia compatible with active inflammatory bowel disease. There is a high-grade narrowing/stricture of terminal ileum. Patient was started on IV fluids, NG tube was placed for decompression. Surgery was consulted and patient was admitted to general medical floor. Crohn's disease Small bowel obstruction --CT ABD:Marked wall thickening of the terminal ileum and cecum with mucosal hyperemia compatible with acute active inflammatory bowel disease. There is high-grade narrowing/stricturing at the terminal ileum resulting in upstream high-grade small bowel obstruction with marked dilation of the small bowel. The proximal appendix is dilated and inflamed measuring up to 8 mm with the mid and distal appendix normal in caliber. The inflammation is likely secondary to the inflammatory bowel disease as above, however concomitant acute appendicitis could appear similarly. Likely reactive mesenteric lymphadenopathy. No pneumoperitoneum, fistula or sinus tract identified. -- NG tube discontinued --Advance diet as tolerated Appreciate GI, Surgery Input Received IV Fluids Repeat KUB in AM Continue on on methylprednisolone 20 mg IV 3 times daily Plan to discharge on prednisone Taper Needs follow up with GI upon discharge Esophagitis- Found on his EGD in October on Protonix DVT Px: SCDs for now Code Status Full code Admission and Anticipated Discharge Date Admission Date: January 04, 2022 Subjective Patient is seen and examined at bedside States feeling a lot better today Tolerating diet Denies any nausea, vomiting, abdominal pain Discussed with GI today KUB showed improved small bowel distention Review of Systems Review of Systems: All systems reviewed & are unremarkable except as noted in Subjective Physical Exam 2 Physical Exam: Physical Exam: Vitals signs as noted above General Appearance:Thin, frail, no apparent distress Head: normocephalic, Atraumatic Eyes: normal inspection, EOMI Neck: supple, Trachea midline Respiratory/Chest: Normal breath sounds, CTA, No accessory muscle use Cardiovascular: S1, S2, No murmur Abdomen/GI:Soft, Non tender, Bowel sounds present Extremities/Musculoskeletal:normal inspection, no edema Neurologic/Psych:AAOX3, grossly no focal neurological deficits Skin: normal color, warm Results & Data Results & Data ([facility]) Vital Signs (Past 12 Hours) Vital Signs Temp Pulse Resp BP BP Pulse Ox O2 Del Method 01/07/22 15:50 36.7 C 58 L 16 107/66 97 Room Air 01/07/22 08:00 Room Air 01/07/22 07:17 36.5 C 44 L 16 105/65 98 Room Air Laboratory Results Short CBC 01/07/22 Range/Units 05:55 WBC 5.97 (4.8-10.8) K/ul Hgb 12.0 L (14.0-18.0) g/dl Hct 36.2 L (40.1-51.0) % Plt Count 295 (130-400) K/uL BMP 01/07/22 05:55 Sodium 137 Potassium 4.3 Chloride 103 Carbon Dioxide 28 BUN 10 Creatinine 0.54 L Glucose 117 H Calcium 9.0
[2022-01-08 07:04] LABS: Anion Gap 6 (3-11); BUN Creatinine Ratio 20.9 (10-20); Blood Urea Nitrogen 14 mg/dl (6-23); Calcium 9.5 mg/dl (8.5-10.1); Carbon Dioxide 30 mmol/L (21-32); Chloride 102 mmol/L (98-107); Creatinine Clr Calc Pharmacy 146.2 ml/min; Est GFR (African American) > 150.0 ml/min; Est GFR (Non-African American) 139.3 ml/min; Glucose 132 mg/dl (70-99(Fasting)); Magnesium 2.2 mg/dl (1.7-2.4); Potassium 4.2 mmol/L (3.5-5.1); Sodium 138 mmol/L (136-145)
[2022-01-08] MEDS: PANTOprazole 40 MG in SYRINGE 0 ML IV SCH (10:44)
[2022-01-08] MEDS: methylPREDNISolone 20 MG in SYRINGE 0 ML IV SCH ×2 (10:44→15:25)
--- NOTE | 2022-01-08 12:01 | XRay Report ---
KUB HISTORY: Small bowel obstruction. Follow-up. COMPARISON: KUB 01/07/2022. FINDINGS: Multiple dilated gas-filled loops of small bowel are again seen within the abdomen consiste nt with a small bowel obstruction. A right lower quadrant small bowel loop measure up to 9 cm in diam eter. This is similar to the prior CT examination but appears to have progressed from the 01/07/2022 K UB. No renal calculi. No ureteral calculi. No pneumoperitoneum or pneumatosis. IMPRESSION: Multiple dilated gas-filled loops of small bowel are again seen within the abdomen consistent with a small bowel obstruction. A right lower quadrant small bowel loop measure up to 9 cm in diameter. This is similar to the prior CT examination but appears to have progressed from the 01/07/2022 KUB. ACT 112: Negative or not required by law. Electronically signed by: Chris Ordonez M.D. 01/08/2022 11:59 AM
--- NOTE | 2022-01-08 12:44 | Surgery Progress Note ---
Date of Service January 08, 2022 Assessment & Plan (1) Small bowel obstruction: Plan: Patient here with Crohn's flare up resulting in SBO We have been asked to re-evaluate the patient given worsening KUB findings today On examination patient is sitting up in the chair in no distress, he is tolerating a regular diet without abdominal pain, nausea/vomiting. He is passing flatus and had multiple BM's over the last 2 days. His abdomen is benign, soft, non tender, non distended. Vital signs are stable Discussed with my attending as well as with radiology who suggest this could be a chronic stricture in TI We are okay with current medical mngmt as recommended by GI, but he should have close follow up with both GI and colorectal as an outpt Okay for discharge from our point of view, but if any further concerns can always consider a CT with contrast vs SBFT for further eval (2) Crohn's disease: Admission and Anticipated Discharge Date Admission Date: January 04, 2022 Supervising Physician Co-Signing Physician Notes Patient discussed with MELODY Shoemaker, labs image reviewed, agree with above. 21-year-old male with known Crohn's stricture currently undergoing nonoperative management. He is tolerating a diet and passing flatus and having bowel movements. His KUB this morning showed some increasing distention. Clinically he is significantly improved from admission and the dilation is likely chronic in nature given the duration of his symptoms and the tightness of the stricture. He is okay to be discharged from general surgery standpoint, if any further concern would recommend CT abdomen pelvis with oral contrast versus SBFT. Would recommend outpatient follow-up with GI and probable outpatient consultation with colorectal surgery. Subjective Patient states he is feeling well. Denies any abdominal pain, nausea/vomiting. He has been tolerating a regular diet. He is passing flatus. Had 2 small BMs 2 days ago and one regular one yesterday. Physical Exam Physical Exam: awake/alert, sitting up in chair Respiratory: normal respiratory effort Gastrointestinal (Abdomen): Inspection/Auscultation: abdomen not distended Percussion/Palpation: abdomen soft; abdomen nontender Results & Data ([facility]) Vital Signs (Past 12 Hours) Vital Signs Temp Pulse Pulse Resp BP Pulse Ox O2 Del Method 01/08/22 11:09 36.7 C 80 14 115/80 99 Room Air 01/08/22 06:58 36.5 C 63 12 124/78 100 Room Air PG Care Time/CCT Total # of Minutes Spent Total Time Spent with Patient: Total time spent is greater than 50% in coordination of care (as documented) at patient's floor/unit and/or counseling patient: Coding Level of Care Code 23970 Subseq Hosp Care Lvl 1 Diagnoses Small bowel obstruction K56.609 Crohn's disease K50.90
[2022-01-08] MEDS ORDERED: SODIUM CHLORIDE 0.9% 1000ML 1,000 ML IV ONE (12:56)
[2022-01-08] MEDS ORDERED: IOVERSOL 350 MG 100mL Prefilled Syringe IV ONE (13:47)
--- NOTE | 2022-01-08 14:11 | CT Scan Report ---
ABDOMEN AND PELVIS CT WITH IV CONTRAST CT DOSE: 286.35 mGy.cm HISTORY: Acute generalized abdominal pain with history of inflammatory bowel disease sbo TECHNIQUE: Multiaxial CT images of the abdomen and pelvis were performed following the IV administrat ion of 94 cc of Optiray, A dose lowering technique was utilized adhering to the principles of ALARA. COMPARISON STUDY: 01/04/2022 FINDINGS: Clear lung bases. Unremarkable spleen, pancreas, gallbladder, adrenal glands and liver. Pat ency of the hepatic and portal veins. Unremarkable kidneys. No hydronephrosis. Decompressed urinary b ladder. Aorta and IVC are unremarkable. Mildly enlarged mesenteric lymph nodes measure up to approxim ately 11 mm in short axis. Distended debris-filled stomach. There is marked wall thickening with mucosal hyperemia involving the terminal resolving in marked luminal narrowing at the terminal ileum (please see image 269 series 3) . This results in upstream small bowel distention measuring up to 5.2 cm, previously 7.9 cm. Numerous prominent nondilated fluid-filled loops of small bowel are seen throughout the abdomen and pelvis. N o fistula or sinus tract identified. The proximal appendix is fluid-filled it measures within the upp er limits of normal at 6 mm, previously 8 mm. Inflammatory stranding is noted adjacent to the cecum a nd appendix. Prominent lymph nodes of the right lower quadrant mesentery. Unremarkable soft tissues. No acute fracture. IMPRESSION: 1. Marked wall thickening of the terminal ileum with mucosal hyperemia redemonstrated compatible with acute active inflammatory bowel disease resulting in high-grade stricture of the terminal ileum. Ups tream small bowel distention measuring up to 5.2 cm has improved from 01/04/2022. Findings are suggest adia of at least a partial obstruction. 2. Fluid-filled appendix measures within the upper limits of normal, likely secondary to the aforemen tioned colonic findings. Acute appendicitis considered less likely. 3. Reactive mesenteric lymphadenopathy redemonstrated. 4. No pneumatosis or pneumoperitoneum. ACT 112: Negative or not required by law. The above report was generated using voice recognition software. It may contain grammatical, syntax o r spelling errors. Electronically signed by: Russell Amor M.D. 01/08/2022 2:10 PM
--- NOTE | 2022-01-08 15:08 | Hospitalist Progress Note ---
Date of Service January 08, 2022 Assessment & Plan (1) Crohn's disease: (2) Small bowel obstruction: Plan Patient is a 21 yr with H/O Crohn's disease who presents to the ED with 3-day of nausea, vomiting and abdominal pain. On presentation to the ED, he was normotensive afebrile and saturating room well in room air. Hemoglobin is 13.3. BMP was unremarkable. CT abdomen and pelvis showed marked wall thickening of the terminal ileum and cecum with mucosal hyperemia compatible with active inflammatory bowel disease. There is a high-grade narrowing/stricture of terminal ileum. Patient was started on IV fluids, NG tube was placed for decompression. Surgery was consulted and patient was admitted to general medical floor. Crohn's disease Small bowel obstruction --CT ABD:Marked wall thickening of the terminal ileum and cecum with mucosal hyperemia compatible with acute active inflammatory bowel disease. There is high-grade narrowing/stricturing at the terminal ileum resulting in upstream high-grade small bowel obstruction with marked dilation of the small bowel. The proximal appendix is dilated and inflamed measuring up to 8 mm with the mid and distal appendix normal in caliber. The inflammation is likely secondary to the inflammatory bowel disease as above, however concomitant acute appendicitis could appear similarly. Likely reactive mesenteric lymphadenopathy. No pneumoperitoneum, fistula or sinus tract identified. --Repeat CT abd on 01/08/22: Marked wall thickening of the terminal ileum with mucosal hyperemia redemonstrated compatible with acute active inflammatory bowel disease resulting in high-grade stricture of the terminal ileum. Upstream small bowel distention measuring up to 5.2 cm has improved from 01/04/2022. -- NG tube discontinued --Tolerates low fiber diet Appreciate GI, Surgery Input Received IV Fluids On methylprednisolone 20 mg IV 3 times daily>>plan to restart prednisone taper at 40mg with 5 mg a week taper course upon discharge Needs follow up with GI/Surgery upon discharge Esophagitis- Found on his EGD in October on Protonix DVT Px: SCDs for now Code Status Full code Disposition Home Admission and Anticipated Discharge Date Admission Date: January 04, 2022 Subjective Patient is seen and examined at bedside Continues to feel better Tolerates diet +Flatus, had BM yesterday Discussed with GI and Surgery today Denies any nausea, vomiting, abdominal pain Also discussed with patient's family over the phone Repeat CT abd showed improvement from prior imaging Review of Systems Review of Systems: All systems reviewed & are unremarkable except as noted in Subjective Physical Exam Physical Exam: Physical Exam: Vitals signs as noted above General Appearance:Thin, frail, no apparent distress Head: normocephalic, Atraumatic Eyes: normal inspection, EOMI Neck: supple, Trachea midline Respiratory/Chest: Normal breath sounds, CTA, No accessory muscle use Cardiovascular: S1, S2, No murmur Abdomen/GI:Soft, Non tender, Bowel sounds present Extremities/Musculoskeletal:normal inspection, no edema Neurologic/Psych:AAOX3, grossly no focal neurological deficits Skin: normal color, warm Results & Data Results & Data ([facility]) Vital Signs (Past 12 Hours) Vital Signs Temp Pulse Pulse Resp BP Pulse Ox O2 Del Method 01/08/22 11:09 36.7 C 80 14 115/80 99 Room Air 01/08/22 06:58 36.5 C 63 12 124/78 100 Room Air Laboratory Results [facility] 01/08/22 06:10 Sodium 138 Potassium 4.2 Chloride 102 Carbon Dioxide 30 BUN 14 Creatinine 0.67 Glucose 132 H Calcium 9.5
--- NOTE | 2022-01-08 15:29 | Discharge Summary ---
Date of Service January 08, 2022 Admission HPI Per Admitting Provider Patient is a 21-year-old male with past medical history of Crohn's disease who presents to the ED with 3-day of nausea, vomiting and abdominal pain. Since Wednesday, he started to experience episodes of nausea and vomiting containing food particles and occasionally dark brown in color as well. He also noticed he had increasing abdominal distention and abdominal pain in periumbilical region. Abdominal pain was cramping in nature, intermittent, nonradiating with no aggravating and relieved on bowel movement. He had also noticed decreased frequency and amount of bowel movement as well. His last bowel movement was last evening. He denies fever, chills, chest pain, shortness of breath or any other urinary symptoms. He was diagnosed with Crohn's disease in October 2021. He was initially given a course of prednisone and was started on Stelara. He follows up with gastroenterology in [place] with Dr. Jamel Zacarias. He was recently prescribed prednisone taper by his gastroenterology due to increasing symptoms. He is currently on 30 mg of prednisone. He reports that he had undergone colonoscopy in the summer which showed narrowing at the terminal ileum. He has never been hospitalized. He reports being in the emergency department for nausea and vomiting once before and was discharged from the ED. 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 He does not smoke, occasionally drinks alcohol and occasionally uses marijuana. On presentation to the ED, he was normotensive afebrile and saturating room well in room air. Hemoglobin is 13.3. BMP was unremarkable. CT abdomen and pelvis showed marked wall thickening of the terminal ileum and cecum with mucosal hyperemia compatible with active inflammatory bowel disease. There is a high- grade narrowing/stricture of terminal ileum. Patient was started on IV fluids, NG tube was placed for decompression. Surgery was consulted and patient was admitted to general medical floor. Admission Exam Per Admitting Provider Physical Exam Physical Exam: Constitutional: WD/WN, vitals as above, NAD, sitting up in bed, pleasant, conversing easily ENMT: NG tube in place draining dark-colored output. Neck: trachea midline, no thyromegaly normal visual inspection Respiratory: normal respiratory effort, lungs clear to auscultation, no wheeze, rales, rhonchi. Normal insp/exp effort, no accessory muscle use Cardiovascular: RRR, no murmur, no edema Vessels: no JVD or carotid bruit Chest: normal inspection of chest Abdomen: Hyperactive bowel movement. Tenderness present in periumbilical and epigastric region. Musculoskeletal: no cyanosis or clubbing, extremities motor strength 5/5 Skin: no rashes, warm and dry normal turgor Neurologic: PERRL, EOMI, accommodation nl, no face palsy, no dysarthria CN's II- XI intact bilaterally and moves all extremities Psychiatric: A+Ox3, euthymic affect Lymphatic: no cervical or axillary lymphadenopathy : deferred Principal Diagnosis Crohn's disease Small bowel obstruction Esophagitis Discharge Data Allergies Allergy/AdvReac Type Severity Reaction Status Date / Time No Known Allergies Allergy Unverified 01/04/22 17:54 Consultations 01/04/22 18:16 Consult Gastroenterology Routine Consult General Surgery Routine 01/04/22 18:25 ED Decision to Admit Stat 01/07/22 18:39 Consult Nutrition Routine Procedures Performed Laboratory Results WBC 5.97 K/ul (4.8-10.8) 01/07/22 05:55 RBC 4.48 M/uL (4.63-6.08) L 01/07/22 05:55 Hgb 12.0 g/dl (14.0-18.0) L 01/07/22 05:55 Hct 36.2 % (40.1-51.0) L 01/07/22 05:55 MCV 80.8 fL (80.0-100.0) 01/07/22 05:55 MCH 26.8 pg (25.0-34.0) 01/07/22 05:55 MCHC 33.1 g/dL (32.0-36.0) 01/07/22 05:55 RDW Std Deviation 41.9 fL (36.4-46.3) 01/07/22 05:55 RDW Coeff of Андрей 14.4 % (11.5-14.5) 01/07/22 05:55 Plt Count 295 K/uL (130-400) 01/07/22 05:55 MPV 9.9 fL (9.4-12.4) 01/07/22 05:55 Immature Gran % (Auto) 0.3 % 01/07/22 05:55 Neut % (Auto) 67.8 % 01/07/22 05:55 Lymph % (Auto) 20.3 % 01/07/22 05:55 [place] % (Auto) 11.4 % 01/07/22 05:55 Eos % (Auto) 0.0 % 01/07/22 05:55 Baso % (Auto) 0.2 % 01/07/22 05:55 Neut # (Auto) 4.05 K/uL (1.4-6.5) 01/07/22 05:55 Lymph # (Auto) 1.21 K/uL (1.2-3.4) 01/07/22 05:55 [place] # (Auto) 0.68 K/uL (0.24-0.82) 01/07/22 05:55 Eos # (Auto) 0.00 K/uL (0-0.50) 01/07/22 05:55 Baso # (Auto) 0.01 K/uL (0-0.2) 01/07/22 05:55 Immature Gran # (Auto) 0.02 K/uL (0.00-0.02) 01/07/22 05:55 Sodium 138 mmol/L (136-145) 01/08/22 06:10 Potassium 4.2 mmol/L (3.5-5.1) 01/08/22 06:10 Chloride 102 mmol/L (98-107) 01/08/22 06:10 Carbon Dioxide 30 mmol/L (21-32) 01/08/22 06:10 Anion Gap 6 (3-11) 01/08/22 06:10 BUN 14 mg/dl (6-23) 01/08/22 06:10 Creatinine 0.67 mg/dl (0.6-1.4) 01/08/22 06:10 Est Cr Clr Drug Dosing 146.2 ml/min 01/08/22 06:10 Est GFR ( Amer) > 150.0 ml/min 01/08/22 06:10 Est GFR (Non-Af Amer) 139.3 ml/min 01/08/22 06:10 BUN/Creatinine Ratio 20.9 (10-20) H 01/08/22 06:10 Glucose 132 mg/dl (70-99(Fasting)) H 01/08/22 06:10 Calcium 9.5 mg/dl (8.5-10.1) 01/08/22 06:10 Magnesium 2.2 mg/dl (1.7-2.4) 01/08/22 06:10 Total Bilirubin 0.8 mg/dl (0.2-1.0) 01/05/22 06:42 AST 10 U/L (13-39) L 01/05/22 06:42 ALT 25 U/L (7-52) 01/05/22 06:42 Alkaline Phosphatase 60 U/L (34-104) 01/05/22 06:42 C-Reactive Protein 0.80 mg/dl (0-0.5) H 01/05/22 06:42 Total Protein 6.1 gm/dl (6.0-8.3) D 01/05/22 06:42 Albumin 3.5 gm/dl (3.4-5.0) 01/05/22 06:42 Globulin 2.6 gm/dl (2.5-4.0) 01/05/22 06:42 Albumin/Globulin Ratio 1.3 (0.9-2) 01/05/22 06:42 Lipase 18 U/L (11-82) 01/04/22 14:45 Urine Color Dark Yellow 01/04/22 17:14 Urine Appearance Cloudy (Clear) A 01/04/22 17:14 Urine pH 5.5 (4.5-7.5) 01/04/22 17:14 Ur Specific Bowie 1.035 (1.000-1.030) H 01/04/22 17:14 Urine Protein 1+ (Negative) H 01/04/22 17:14 Urine Glucose (UA) Trace (Negative) H 01/04/22 17:14 Urine Ketones 3+ (Negative) H 01/04/22 17:14 Urine Blood Negative (Negative) 01/04/22 17:14 Urine Nitrite Negative (Negative) 01/04/22 17:14 Urine Bilirubin 1+ (Negative) H 01/04/22 17:14 Urine Urobilinogen Negative (Negative) 01/04/22 17:14 Ur Leukocyte Esterase Negative (Negative) 01/04/22 17:14 Urine WBC (Auto) 1-5 /hpf (0-5) 01/04/22 17:14 Urine RBC (Auto) 0-4 /hpf (0-4) 01/04/22 17:14 U Hyaline Cast (Auto) 1-5 /lpf (0-5) 01/04/22 17:14 U Epithel Cells (Auto) 10-20 /lpf (0-5) H 01/04/22 17:14 Urine Bacteria (Auto) Negative (Negative) 01/04/22 17:14 Urine Crystals Not Reportable 01/04/22 17:14 Calcium Oxalate Crystal Present (None Prsent) A 01/04/22 17:14 Urine Mucus Present (None Prsent) A 01/04/22 17:14 SARS-CoV-2, RNA, NAAT NEGATIVE (NEGATIVE) 01/04/22 17:35 Impressions KUB X-Ray 01/08/22 07:00 KUB HISTORY: Small bowel obstruction. Follow-up. COMPARISON: KUB 01/07/2022. FINDINGS: Multiple dilated gas-filled loops of small bowel are again seen within the abdomen consistent with a small bowel obstruction. A right lower quadrant small bowel loop measure up to 9 cm in diameter. This is similar to the prior CT examination but appears to have progressed from the 01/07/2022 KUB. No renal calculi. No ureteral calculi. No pneumoperitoneum or pneumatosis. IMPRESSION: Multiple dilated gas-filled loops of small bowel are again seen within the abdomen consistent with a small bowel obstruction. A right lower quadrant small bowel loop measure up to 9 cm in diameter. This is similar to the prior CT examination but appears to have progressed from the 01/07/2022 KUB. ACT 112: Negative or not required by law. Electronically signed by: Chris Ordonez M.D. 01/08/2022 11:59 AM Abdomen/Pelvis CT 01/08/22 12:[address] WITH IV CONTRAST CT DOSE: 286.35 mGy.cm HISTORY: Acute generalized abdominal pain with history of inflammatory bowel disease sbo TECHNIQUE: Multiaxial CT images of the abdomen and pelvis were performed following the IV administration of 94 cc of Optiray, A dose lowering technique was utilized adhering to the principles of ALARA. COMPARISON STUDY: 01/04/2022 FINDINGS: Clear lung bases. Unremarkable spleen, pancreas, gallbladder, adrenal glands and liver. Patency of the hepatic and portal veins. Unremarkable kidneys. No hydronephrosis. Decompressed urinary bladder. Aorta and IVC are unremarkable. Mildly enlarged mesenteric lymph nodes measure up to approximately 11 mm in short axis. Distended debris-filled stomach. There is marked wall thickening with mucosal hyperemia involving the terminal resolving in marked luminal narrowing at the terminal ileum (please see image 269 series 3). This results in upstream small bowel distention measuring up to 5.2 cm, previously 7.9 cm. Numerous prominent nondilated fluid-filled loops of small bowel are seen throughout the abdomen and pelvis. No fistula or sinus tract identified. The proximal appendix is fluid- filled it measures within the upper limits of normal at 6 mm, previously 8 mm. Inflammatory stranding is noted adjacent to the cecum and appendix. Prominent lymph nodes of the right lower quadrant mesentery. Unremarkable soft tissues. No acute fracture. IMPRESSION: 1. Marked wall thickening of the terminal ileum with mucosal hyperemia redemonstrated compatible with acute active inflammatory bowel disease resulting in high-grade stricture of the terminal ileum. Upstream small bowel distention measuring up to 5.2 cm has improved from 01/04/2022. Findings are suggestive of at least a partial obstruction. 2. Fluid-filled appendix measures within the upper limits of normal, likely secondary to the aforementioned colonic findings. Acute appendicitis considered less likely. 3. Reactive mesenteric lymphadenopathy redemonstrated. 4. No pneumatosis or pneumoperitoneum. ACT 112: Negative or not required by law. The above report was generated using voice recognition software. It may contain grammatical, syntax or spelling errors. Electronically signed by: Russell Amor M.D. 01/08/2022 2:10 PM Ordered Studies 01/04/22 14:29 CT abd pelvis IV con only Stat 01/08/22 12:56 CT Abd and Pelvis [CT abd pelvis IV con only] Urgent Hospital Course (1) Crohn's disease: (2) Small bowel obstruction: Plan Patient is a 21 yr with H/O Crohn's disease who presents to the ED with 3-day of nausea, vomiting and abdominal pain. On presentation to the ED, he was normotensive afebrile and saturating room well in room air. Hemoglobin is 13.3. BMP was unremarkable. CT abdomen and pelvis showed marked wall thickening of the terminal ileum and cecum with mucosal hyperemia compatible with active inflammatory bowel disease. There is a high-grade narrowing/stricture of terminal ileum. Patient was started on IV fluids, NG tube was placed for decompression. Surgery was consulted and patient was admitted to general medical floor. Crohn's disease Small bowel obstruction --CT ABD:Marked wall thickening of the terminal ileum and cecum with mucosal hyperemia compatible with acute active inflammatory bowel disease. There is high-grade narrowing/stricturing at the terminal ileum resulting in upstream high-grade small bowel obstruction with marked dilation of the small bowel. The proximal appendix is dilated and inflamed measuring up to 8 mm with the mid and distal appendix normal in caliber. The inflammation is likely secondary to the inflammatory bowel disease as above, however concomitant acute appendicitis could appear similarly. Likely reactive mesenteric lymphadenopathy. No pneumoperitoneum, fistula or sinus tract identified. --Repeat CT abd on 01/08/22: Marked wall thickening of the terminal ileum with mucosal hyperemia redemonstrated compatible with acute active inflammatory bowel disease resulting in high-grade stricture of the terminal ileum. Upstream small bowel distention measuring up to 5.2 cm has improved from 01/04/2022. -- NG tube discontinued --Tolerates low fiber diet Appreciate GI, Surgery Input Received IV Fluids On methylprednisolone 20 mg IV 3 times daily>>plan to restart prednisone taper at 40mg with 5 mg a week taper course upon discharge Needs follow up with GI/Surgery upon discharge Esophagitis- Found on his EGD in October on Protonix DVT Px: SCDs for now Code Status Full code Disposition Home Total Time Total Time Spent Total Time Spent (In Minutes): 45 minutes Discharge Plan Discharge Items Patient Disposition: Home - Self-Care Reason For Visit: chrons disease, sbo Discharge Diagnosis: Crohn's disease Small bowel obstruction Esophagitis Activity: Per Instructions section Exercise/Sports: Gradually increase as tolerated Non-emergency contact: Primary Care Provider, Surgeon and Line Supply Call non-emergency contact if: you have any medication questions, your symptoms worsen, your pain is concerning for you and you have a fever Follow-up/Referrals: Jefry Jorgensen DO, JESUS [Physician] - ([facility] [address] [address] ) Robin Birmingham MD [Physician] - ([facility] [address] [place] [address] [address] [place] [address] ph: ) Diet: Low Fiber Addtl Attending Provider Instructions: Follow-up with your dehydrogenation operator head in 1 week Follow up with your Surgeon in 1 week --Complete the Prednisone Taper course as advised. Start taking Prednisone 40mg daily for 1 week, then 35mg for 1 week, 30mg for 1 week, 25mg for 1 week, 20mg for 1 week, 15mg for 1 week. Further instructions as per your Line Supply. ---Get Stelara as outpatient as recommended by your Line Supply. Seek immediate medical attention if your symptoms reoccur or worsen Please take all medications as instructed on discharge list below. Please call if you have any questions or problems. You can reach a [facility] hospitalist on duty at [facility] 24 hours a day by calling [phone] Pending Studies at Discharge: No Stand-Alone Forms: My [facility], Work/School Release, Smoking Cessation Medications and DC Order Prescriptions: New prednisone 5 mg tablet 5 mg PO UD Qty: 14 0RF Rx Instructions: Start taking Prednisone 40mg daily for 1 week, then 35mg for 1 week, 30mg for 1 week, 25mg for 1 week, 20mg for 1 week, 15mg for 1 week. Further instructions as per your Line Supply. Continued Stelara 90 mg/mL syringe 0 mg SUBCUT Q2M Rx Instructions: TAKE DIRECTED : SELF-INJECTION EVERY TWO MONTHS BETWEEN THE 3RD DAY AND 13TH DAY OF THE MONTH esomeprazole magnesium 40 mg capsule,delayed release(DR/EC) 40 mg PO DAILY Qty: 30 1RF Changed prednisone 10 mg tablet 10 mg PO UD Qty: 100 0RF Rx Instructions: Start taking Prednisone 40mg daily for 1 week, then 35mg for 1 week, 30mg for 1 week, 25mg for 1 week, 20mg for 1 week, 15mg for 1 week. Further instructions as per your Line Supply. Discharge Orders: Discharge Order (Routine); Ordered 01/08/22 Ordered By: Kenney Jimenez Admission Data Admit Date/Time: 01/04/22 19:30 Attending Provider: Kenney Jimenez Admit Provider: Lonny Guthrie Primary Care Provider: PCP,NO Other Providers: Robin Birmingham ; Jefry Jorgensen ; Lonny Guthrie ; Kenney Jimenez
== END 2022-01-08 16:46 | disposition home or self-care (01) | DRG 387 ==
LOC: ED 14:17 → SUATTDRO 19:30 → 3E 19:30

== ENCOUNTER 2022-10-10 07:17 | Observation (INO) ==
[2022-10-10] MEDS ORDERED: ONDANSETRON INJ 2 MG/ML 2 ML VIAL IV STA (07:45)
[2022-10-10] MEDS ORDERED: SODIUM CHLORIDE 0.9% 1000ML 1,000 ML IV ONE ×2 (07:45→08:48)
[2022-10-10] MEDS ORDERED: ONDANSETRON 4 MG OD TAB ONE (07:50)
[2022-10-10] MEDS ORDERED: MoRPHine SULFATE 4 MG/ML 1 ML CARP\\VIAL IV STA (07:53)
[2022-10-10] MEDS ORDERED: PANTOPRAZOLE BOLUS/DRIP 1 EACH IV STA (07:53)
[2022-10-10] MEDS ORDERED: PANTOprazole 80 MG in DEXTROSE 5% 100 ML IV ONE (07:53)
[2022-10-10 08:34] LABS: Hematocrit (blood only) 50.5 % (42.0-52.0); Hemoglobin 17.8 g/dl (14.0-18.0); Mean Corpuscular Hemoglobin 28.3 pg (25.0-34.0); Mean Corpuscular Hgb Conc 35.2 g/dL (32.0-36.0); Mean Corpuscular Volume 80.4 fL (80.0-100.0); Mean Platelet Volume 10.4 fL (9.4-12.4); Platelet Count 512 K/uL (130-400); RDW Coefficient of Variation 13.4 % (11.5-14.5); RDW Standard Deviation 37.3 fL (36.4-46.3); Red Blood Count 6.28 M/uL (4.70-6.10); White Blood Count 13.54 K/ul (4.8-10.8)
[2022-10-10 08:39] LABS: Albumin Level 5.6 gm/dl (3.4-5.0); BUN Creatinine Ratio 24.8 (10-20); Bilirubin Direct 0.3 mg/dl (0-0.2); Bilirubin,Total 0.9 mg/dl (0.2-1.0); Calcium 10.8 mg/dl (8.6-10.3); Creatinine Clr Calc Pharmacy 57.8 ml/min; Est GFR (African American) 70.8 ml/min; Est GFR (Non-African American) 61.1 ml/min; Potassium 3.8 mmol/L (3.5-5.1); Total Protein 10.1 gm/dl (6.0-8.3)
[2022-10-10] MEDS: PANTOprazole 40 MG in DEXTROSE 5% 100 ML IV SCH ×2 (08:40→14:14)
--- NOTE | 2022-10-10 08:52 | XRay Report ---
XR chest 1V portable HISTORY: 21 years-old Male vomitting acute nausea with vomiting COMPARISON: CT 01/08/2022 TECHNIQUE: AP view the chest FINDINGS: Cardiomediastinal and hilar silhouettes are within normal limits. No pneumothorax, pleural effusion, airspace consolidation or overt pulmonary edema. Vertically oriented linear lucencies project over th e base of the neck extending into the upper mediastinum. Bones appear normal.. IMPRESSION: 1. Pneumomediastinum with deep tissue air extending into the neck. 2. No pneumothorax. ACT 112: Negative or not required by law. The above report was generated using voice recognition software. It may contain grammatical, syntax o r spelling errors. Electronically signed by: Russell Amor M.D. 10/10/2022 8:51 AM
[2022-10-10 08:55] LABS: Basophils # (auto) 0.02 K/uL (0-0.2); Basophils % (auto) 0.1 %; Immature Granulocytes # (auto) 0.05 K/uL (0.01-0.20); Immature Granulocytes % (auto) 0.4 %; Lymphocytes # (auto) 1.25 K/uL (1.2-3.4); Lymphocytes % (auto) 9.2 %; Monocytes # (auto) 1.42 K/uL (0.11-0.59); Monocytes % (auto) 10.5 %; Neutrophils % (auto) 79.8 %
[2022-10-10] MEDS ORDERED: OPTIRAY 320 100ml IV ONE (09:17)
--- NOTE | 2022-10-10 10:03 | CT Scan Report ---
CHEST CT WITH CONTRAST; CT ABDOMEN AND PELVIS WITH IV CONTRAST ONLY CT DOSE: 876.40 mGy.cm HISTORY: Acute generalized chest and abdominal pain with nausea and vomiting ro esophogeal perf TECHNIQUE: Multiaxial CT images of the chest, abdomen and pelvis were performed following the IV admi nistration of 95 cc of Optiray. A small amount of enteric contrast was given for the CT chest to dionte luate the esophagus. A dose lowering technique was utilized adhering to the principles of ALARA. COMPARISON: Chest radiograph of same day, CT abdomen and pelvis 01/08/2022 FINDINGS: CT CHEST: Unremarkable thyroid. Residual thymic tissue in the anterior mediastinum. The heart is normal in siz e without pericardial effusion. Unremarkable thoracic aorta and opacified pulmonary artery. No lympha denopathy identified. Moderate pneumomediastinum which tracks into the lower neck. No pneumothorax, p leural effusion, airspace consolidation or overt pulmonary edema. Thin-walled subpleural cyst of the left lower lobe measures 1.8 cm on image 120. Central airways are patent. Mild gaseous distention of the esophagus which contains enteric contrast. No esophageal wall thickening or definitive esophageal wall injury identified. Unremarkable soft tissues. No acute fracture identified. CT ABDOMEN/PELVIS: No pneumatosis or pneumoperitoneum identified. The spleen, pancreas, adrenal glands and distended gal lbladder appear unremarkable. The liver is within normal limits. Patent portal vein. Unremarkable kid neys. No hydronephrosis. Urinary bladder wall thickening with partial distention. The prostate is upp er limits of normal in size. Aorta and IVC are unremarkable. Prominent mesenteric lymph nodes are lik la reactive. Marked wall thickening with mucosal or premie again noted within the terminal ileum is present within the central pelvis. There is adjacent inflammatory stranding. Scattered air-fluid levels are noted w ithin numerous loops of small bowel. Large bowel is distended measuring up to approximately 7.5 cm wi th decompressed distal small bowel. Unremarkable soft tissues. IMPRESSION: 1. Marked wall thickening with mucosal hyperemia again noted involving the terminal ileum with associ ated luminal narrowing compatible with active inflammatory bowel disease. 2. Large and small bowel air-fluid levels are present in addition to colonic distention suggestive of enteritis with diarrheal illness. Follow-up is recommended in order to exclude a distal obstruction. 3. Mesenteric lymphadenopathy, likely reactive. 4. No pneumoperitoneum. 5. Pneumomediastinum without esophageal injury identified. ACT 112: Negative or not required by law. Electronically signed by: Russell Amor M.D. 10/10/2022 10:00 AM
[2022-10-10] MEDS ORDERED: cefTRIAXone SODIUM 1,000 MG in DEXTROSE 5% AD-VAN 50 ML IV STA (11:09)
--- NOTE | 2022-10-10 11:22 | History & Physical Report ---
Date of Service October 10, 2022 Assessment & Plan (1) Enteritis: (2) Coffee ground emesis: (3) Crohn's disease: (4) KARLEE (acute kidney injury): Plan This is a 21-year-old male with PMH of Crohn's disease on Stelara who presents with ongoing nausea and vomiting over the past 3 days found to have likely acute viral enteritis, acute Crohn's flare and spontaneous pneumomediastinum. Enteritis Coffee ground emesis N,V&D x 3 days following large meal on , vapes marijuana daily VSS, WBC 13.54, hgb 13.5 CT abd/pelvis with marked wall thickening with mucosal hyperemia again noted involving the terminal ileum with associated luminal narrowing compatible with active inflammatory bowel disease. Large and small bowel air-fluid levels are present in addition to colonic distention suggestive of enteritis with diarrheal illness. Follow-up is recommen ded in order to exclude a distal obstruction. Discussed with Dr. Birmingham of GI who does not feel there is an esophageal injury - radiology and pulm services also reviewed imaging Advancing to clears, continue IV PPI, follow stool cultures, IV fluids, monitor CBC Spontaneous pneumomediastinum Chest CT with pneumomediastinum without esophageal injury identified Per Dr. Bhatt, spontaneous pneumomediastinum is most likely from retching, Juliette-Neri tear Anti-emetics and anti-tussives to avoid further vomiting Crohn's disease with acute flare Per GI, appears Crohn's is not controlled at this time and is contributing to symptoms (along with likely viral enteritis) Starting 30mg IV solu-medrol BID Referring to IBD specialist Dr. Najera at [facility] as an OP, may need medication adjustement Currently on Stelara injections every 2 months Will check CRP, fecal calprotectin, c diff KARLEE Cr 1.6 in setting of GI losses (baseline ~0.6), appears clinically dehydrated Continue IV fluid resuscitation, avoid nephrotoxic agents, repeat BMP in AM Marijuana use Counseled on cessation of vaping Hypomagnesemia Mg 1.6. 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 Dispo: Admit to PCU Patient seen in collaboration with Dr. Miles. Please see addendum. I spent a total of 75 minutes coordinating, documenting, and providing care for this patient excluding time spent in the performance of separately billed services. History of Present Illness Chief Complaint: Nausea, vomiting Primary Care Provider: NO PCP This is a 21-year-old male with PMH of Crohn's disease on Stelara who presents with ongoing nausea and vomiting over the past 3 days. Patient went to a dinner at a yoga studio on evening and and reports eating a lot. Then went home and used his marijuana vape pen, which he uses most nights to ensure better sleep, but that stimulate his appetite again and he ate before bed. Woke up later that night vomiting food product followed by bile as well as having watery diarrhea. Denies any blood in stool. Denies any reports of anyone else having food poisoning or anything unusual. By Wednesday evening, patient tried to reintroduce liquids and mild foods like applesauce but began vomiting again, this time vomit was dark brown in color. Denies any bright red blood or black- colored stool. Is not unusual in the past for patient to have a bout of nausea and vomiting following overeating, but this episode was getting progressively worse, so he came to ED for further evaluation. Currently having diffuse abdominal discomfort but no river pain. Still feeling nauseated but improved on antiemetics. Has not had any recurrent diarrhea since arrival or recurrent vomiting since given Zofran. Denies any fevers, chills, lightheadedness, chest pain, shortness of breath, dysuria or constipation. Follows with gastroenterology service in [place] but is also seen by [facility] gastroenterology while in [place] during the semester. 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 Besides nightly use of marijuana vape pen, patient denies tobacco or other illicit drug use. Drinks occasionally at parties but states he has not recently. Not on any other medications. Allergies Allergy/AdvReac Type Severity Reaction Status Date / Time No Known Allergies Allergy Unverified 08/03/22 14:10 Home Medications Medication Instructions Recorded Confirmed Type ustekinumab 90 mg/mL subcutaneous 90 mg subcut Q8WK 10/10/22 10/10/22 History syringe (Stelara) Past Med/Surg History Medical History Crohn disease Surgical History No history of previous surgery Family History Father Hypertension Other Diverticulitis Social History Smoking Status: Never smoker Tobacco Type: E-cigarettes / Vaping Hx Alcohol Use: No Hx Substance Use: Yes (vapes marijuana nightly ) Prescribed Medications: Marijuana Preferred Language: Kuwaiti Communication Ability: Effective 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 Physical Exam Physical Exam: General Appearance: WD/WN, vitals as above, NAD, sitting up in bed, pleasant, conversing easily Head: normocephalic, atraumatic Eyes: normal inspection, PERRL, conjunctivae normal, anicteric sclerae ENT: external ear and nose normal, oropharynx with dry mucous membranes Neck: normal visual inspection, trachea midline, no thyromegaly Respiratory: normal respiratory effort, lungs clear to auscultation, no wheeze, rales, rhonchi. No accessory muscle use Cardiovascular: regular rate, rhythm, no murmur, normal peripheral pulses, no BLE edema. Vessels: no JVD Chest: normal inspection of chest Abdomen/GI: normal bowel sounds, soft, nontender, no hepatosplenomegaly Extremities/Musculoskeletal: no cyanosis or clubbing, extremities motor strength 5/5 Neurologic: PERRL, EOMI, accommodation nl, no face palsy, no dysarthria, CN's II-XI intact bilaterally and moves all extremities Psychiatric: A+Ox3, euthymic affect Skin: no rashes, normal color, warm/dry Results & Data Results & Data Vital Signs (Past 12 Hours) Vital Signs Temp Pulse Resp BP Pulse Ox O2 Del Method 10/10/22 11:00 76 18 115/80 95 10/10/22 10:30 84 17 120/80 95 10/10/22 10:00 80 15 106/71 96 10/10/22 09:30 89 20 112/72 97 07/08/23 09:00 81 16 108/69 97 10/10/22 08:30 79 15 111/78 96 10/10/22 08:25 78 10/10/22 08:26 78 19 96 Room Air 10/10/22 07:33 36.4 C L 128 H 19 111/78 96 Room Air Laboratory Results Short CBC 10/10/22 10/10/22 Range/Units 08:00 14:32 WBC 13.54 H (4.8-10.8) K/ul Hgb 17.8 13.5 L D (14.0-18.0) g/dl Hct 50.5 40.4 L (42.0-52.0) % Plt Count 512 H (130-400) K/uL BMP 10/10/22 08:00 Sodium 138 Potassium 3.8 Chloride 100 Carbon Dioxide 17 L BUN 40 H Creatinine 1.61 H Glucose 196 H Calcium 10.8 H Liver Function 10/10/22 Range/Units 08:00 Total Bilirubin 0.9 (0.2-1.0) mg/dl Direct Bilirubin 0.3 H (0-0.2) mg/dl AST 16 (13-39) U/L ALT 17 (7-52) U/L Alkaline Phosphatase 91 (34-104) U/L Albumin 5.6 H (3.4-5.0) gm/dl Diagnostic Findings Abdomen/Pelvis CT 10/10/22 07:[address] WITH CONTRAST; CT ABDOMEN AND PELVIS WITH IV CONTRAST ONLY CT DOSE: 876.40 mGy.cm HISTORY: Acute generalized chest and abdominal pain with nausea and vomiting ro esophogeal perf TECHNIQUE: Multiaxial CT images of the chest, abdomen and pelvis were performed following the IV administration of 95 cc of Optiray. A small amount of enteric contrast was given for the CT chest to evaluate the esophagus. A dose lowering technique was utilized adhering to the principles of ALARA. COMPARISON: Chest radiograph of same day, CT abdomen and pelvis 01/08/2022 FINDINGS: CT CHEST: Unremarkable thyroid. Residual thymic tissue in the anterior mediastinum. The heart is normal in size without pericardial effusion. Unremarkable thoracic aorta and opacified pulmonary artery. No lymphadenopathy identified. Moderate pneumomediastinum which tracks into the lower neck. No pneumothorax, pleural effusion, airspace consolidation or overt pulmonary edema. Thin-walled subpleural cyst of the left lower lobe measures 1.8 cm on image 120. Central airways are patent. Mild gaseous distention of the esophagus which contains enteric contrast. No esophageal wall thickening or definitive esophageal wall injury identified. Unremarkable soft tissues. No acute fracture identified. CT ABDOMEN/PELVIS: No pneumatosis or pneumoperitoneum identified. The spleen, pancreas, adrenal glands and distended gallbladder appear unremarkable. The liver is within normal limits. Patent portal vein. Unremarkable kidneys. No hydronephrosis. Urinary bladder wall thickening with partial distention. The prostate is upper limits of normal in size. Aorta and IVC are unremarkable. Prominent mesenteric lymph nodes are likely reactive. Marked wall thickening with mucosal or premie again noted within the terminal ileum is present within the central pelvis. There is adjacent inflammatory stranding. Scattered air-fluid levels are noted within numerous loops of small bowel. Large bowel is distended measuring up to approximately 7.5 cm with decompressed distal small bowel. Unremarkable soft tissues. IMPRESSION: 1. Marked wall thickening with mucosal hyperemia again noted involving the terminal ileum with associated luminal narrowing compatible with active inflammatory bowel disease. 2. Large and small bowel air-fluid levels are present in addition to colonic distention suggestive of enteritis with diarrheal illness. Follow-up is recommended in order to exclude a distal obstruction. 3. Mesenteric lymphadenopathy, likely reactive. 4. No pneumoperitoneum. 5. Pneumomediastinum without esophageal injury identified. ACT 112: Negative or not required by law. Electronically signed by: Russell Amor M.D. 10/10/2022 10:00 AM Chest X-Ray 10/10/22 07:54 XR chest 1V portable HISTORY: 21 years-old Male vomitting acute nausea with vomiting COMPARISON: CT 01/08/2022 TECHNIQUE: AP view the chest FINDINGS: Cardiomediastinal and hilar silhouettes are within normal limits. No pneumothorax, pleural effusion, airspace consolidation or overt pulmonary edema. Vertically oriented linear lucencies project over the base of the neck extending into the upper mediastinum. Bones appear normal.. IMPRESSION: 1. Pneumomediastinum with deep tissue air extending into the neck. 2. No pneumothorax. ACT 112: Negative or not required by law. The above report was generated using voice recognition software. It may contain grammatical, syntax or spelling errors. Electronically signed by: Russell Amor M.D. 10/10/2022 8:[address] 10/10/22 09:[address] WITH CONTRAST; CT ABDOMEN AND PELVIS WITH IV CONTRAST ONLY CT DOSE: 876.40 mGy.cm HISTORY: Acute generalized chest and abdominal pain with nausea and vomiting ro esophogeal perf TECHNIQUE: Multiaxial CT images of the chest, abdomen and pelvis were performed following the IV administration of 95 cc of Optiray. A small amount of enteric contrast was given for the CT chest to evaluate the esophagus. A dose lowering technique was utilized adhering to the principles of ALARA. COMPARISON: Chest radiograph of same day, CT abdomen and pelvis 01/08/2022 FINDINGS: CT CHEST: Unremarkable thyroid. Residual thymic tissue in the anterior mediastinum. The heart is normal in size without pericardial effusion. Unremarkable thoracic aorta and opacified pulmonary artery. No lymphadenopathy identified. Moderate pneumomediastinum which tracks into the lower neck. No pneumothorax, pleural effusion, airspace consolidation or overt pulmonary edema. Thin-walled subpleural cyst of the left lower lobe measures 1.8 cm on image 120. Central a irways are patent. Mild gaseous distention of the esophagus which contains enteric contrast. No esophageal wall thickening or definitive esophageal wall injury identified. Unremarkable soft tissues. No acute fracture identified. CT ABDOMEN/PELVIS: No pneumatosis or pneumoperitoneum identified. The spleen, pancreas, adrenal glands and distended gallbladder appear unremarkable. The liver is within normal limits. Patent portal vein. Unremarkable kidneys. No hydronephrosis. Urinary bladder wall thickening with partial distention. The prostate is upper limits of normal in size. Aorta and IVC are unremarkable. Prominent mesenteric lymph nodes are likely reactive. Marked wall thickening with mucosal or premie again noted within the terminal ileum is present within the central pelvis. There is adjacent inflammatory stranding. Scattered air-fluid levels are noted within numerous loops of small bowel. Large bowel is distended measuring up to approximately 7.5 cm with decompressed distal small bowel. Unremarkable soft tissues. IMPRESSION: 1. Marked wall thickening with mucosal hyperemia again noted involving the terminal ileum with associated luminal narrowing compatible with active inflammatory bowel disease. 2. Large and small bowel air-fluid levels are present in addition to colonic distention suggestive of enteritis with diarrheal illness. Follow-up is recommended in order to exclude a distal obstruction. 3. Mesenteric lymphadenopathy, likely reactive. 4. No pneumoperitoneum. 5. Pneumomediastinum without esophageal injury identified. ACT 112: Negative or not required by law. Electronically signed by: Russell Amor M.D. 10/10/2022 10:00 AM Code Status & VTE Plan VTE Prophylaxis Plan VTE Prophylaxis will be ordered: Yes Supervising Physician Co-Signing Physician Notes Attending addendum: The patient was seen and examined in telemetry unit presence of the mother He has been complaining of nausea vomiting for the last 3 days without any diarrhea and/or blood per rectum. Has had some chest pain following vomiting and minimal abdominal pain, no fever and or chills and no abdominal distention Denies any joint pain or any rash On examination Has been feeling better since admission Remains hemodynamically stable and is afebrile and without any tachycardia Chest-clear to auscultate bilaterally Heart-S1-S2, regular Abdomen-soft, not distended, minimally tender and bowel sound present Extremitiesnegative for any edema CLOTH WASHER-alert, 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 No focal sensory or no motor deficit appreciated His admission labs, imaging studies and medications reviewed Crohn's disease with nausea, vomiting and minimal abdominal pain-White count minimally elevated and CT scan did show minimal inflammation involving the terminal ileum and nonspecific colitis without an obstruction Likely has mild exacerbation GI consulted and will probably need a steroid, IV fluid and pain medications Minimal pneumomediastinum with chest pain but without any evidence of esophageal perforation No more pain since admission Radioactive Waste Disposal Dispatcher has been consulted Discussed with the mother Expected to go home within [address] Sadia Miles (3) Crohn's disease Digestive disease complication type: unspecified complication Gastrointestinal tract location: unspecified location Qualified Code(s): K50.919 - Crohn's disease, unspecified, with unspecified complications
[2022-10-10] MEDS: SODIUM CHLORIDE 0.9% 1000ML 1,000 ML IV SCH ×2 (11:26→20:08)
[2022-10-10] MEDS ORDERED: ACETAMINOPHEN 325 MG TAB PO PRN (12:37)
[2022-10-10] MEDS ORDERED: ONDANSETRON INJ 2 MG/ML 2 ML VIAL IV PRN (12:37)
[2022-10-10] MEDS ORDERED: ACETAMINOPHEN 1,000 MG/100 ML VIAL IV PRN (13:12)
[2022-10-10 13:44] LABS: Magnesium 1.6 mg/dl (1.7-2.4)
--- NOTE | 2022-10-10 14:00 | Pulmonary Consultation ---
Date of Consultation October 10, 2022 Assessment & Plan (1) Pneumomediastinum: (2) Vaping nicotine dependence, non-tobacco product: (3) Marijuana smoker: (4) Abnormal chest CT: Plan CT chest 10/10/2022 personally reviewed: Pneumomediastinum appreciated Left lower lobe peripheral 1.8 mm cyst Dilated esophagus with contrast in the distal esophagus No mediastinal lymphadenopathy -- Spontaneous pneumomediastinum Likely from significant retching probable Juliette-Neri tear No intervention needed Avoid elevated intrathoracic pressure. Nausea and antitussive medication -- Left lower lobe peripheral cyst Probably from old infection Crohn's disease is also associated with bronchiectasis but I do not see any signs of bronchiectasis on the CT chest -- Active vaping Advised to quit --Chronic nausea and vomiting Patient does smoke/vape marijuana on a regular basis Hyperemesis syndrome related to chronic marijuana use could be one of the etiology as well Plan: Spontaneous pneumomediastinum is most likely from retching, Juliette-Neri tear Antitussive medication, avoid retching Nonrebreather oxygen Please note the above document was generated using voice recognition software. It may contain grammatical, syntax or spelling errors.Any formal questions or concerns about the content, text or information contained within the body of this dictation should be directly addressed to the provider for clarification. History of Present Illness Attending Physician: Paul Miles MD History of Present Illness 21-year-old male presented to the hospital for hematemesis Past medical history: Crohn's disease on Stelara since [address] chest done which showed pneumomediastinum, pulmonary consulted for the same At the time of examination patient was not in any respiratory distress. He was saturating well on room air. Patient's mother was also in the room Patient has chronic nausea and chronic diarrhea on and off. Since he started to have significant nausea which progressively got worse. It was associated with retching This morning he had dark brown emesis with blood-tinged to it. Denies any blood in the stools, no dysuria Has been afebrile. No headache, dizziness Denies any shortness of breath Social history: Vapes marijuana on a regular basis prior to sleeping. No smoking No personal or family history of asthma Allergies Allergy/AdvReac Type Severity Reaction Status Date / Time No Known Allergies Allergy Unverified 08/03/22 14:10 Home Medications Medication Instructions Recorded Confirmed Type ustekinumab 90 mg/mL subcutaneous 90 mg subcut Q8WK 10/10/22 10/10/22 History syringe (Jonathanirvinra) Patient History Medical History Crohn disease Surgical History No history of previous surgery Family History Father Hypertension Other Diverticulitis Social History Smoking Status: Never smoker Tobacco Type: E-cigarettes / Vaping Hx Alcohol Use: No Hx Substance Use: Yes (vapes marijuana nightly ) Prescribed Medications: Marijuana Preferred Language: Persian Communication Ability: Effective 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 Beliefs That Will Affect Care: None Current Living Situation: Other Current Living Situation Comment: lives in dorm at [employer] Other Information That Helps Us Care for You: No Feels Safe at Home: Yes Safety Concerns: Feels Safe At This Time Assistive Devices: Glasses Review of Systems Review of Systems: All systems reviewed & are unremarkable except as noted in HPI & below Physical Exam Physical Exam: Constitutional: No acute distress HEENT: EOMI, PERRLA no subcu crepitus Respiratory system: Good air entry bilaterally, no wheeze, no rhonchi, no crackles CVS: S1-S2 positive, no murmurs or gallops Abdomen: Soft, mild abdominal tenderness diffuse more on the epigastric, no rebound, nondistended, positive bowel sounds x4 Extremities: +2 pulses bilaterally radialis/ dorsalis pedis, no cyanosis, no edema Neuro: Awake alert oriented x3 Psych: Normal mood and affect G/U: No Batista Skin: no rashes, warm and dry Lymphatic: no cervical or axillary lymphadenopathy Results & Data Results & Data Vital Signs (Past 12 Hours) Vital Signs Temp Pulse Pulse Resp BP BP Pulse Ox 10/10/22 12:39 10/10/22 12:39 36.7 C 78 18 113/82 94 10/10/22 12:07 71 17 117/74 95 10/10/22 12:00 71 17 117/74 95 10/10/22 11:30 83 18 118/78 94 10/10/22 11:00 76 18 115/80 95 10/10/22 10:30 84 17 120/80 95 10/10/22 10:00 80 15 106/71 96 10/10/22 09:30 89 20 112/72 97 10/10/22 09:00 81 16 108/69 97 10/10/22 08:30 79 15 111/78 96 10/10/22 08:25 78 10/10/22 08:26 78 19 96 10/10/22 07:33 36.4 C L 128 H 19 111/78 96 O2 Del Method 10/10/22 12:39 Room Air 10/10/22 12:39 Room Air 10/10/22 12:07 Room Air 10/10/22 12:00 10/10/22 11:30 10/10/22 11:00 10/10/22 10:30 10/10/22 10:00 10/10/22 09:30 10/10/22 09:00 10/10/22 08:30 10/10/22 08:25 10/10/22 08:26 Room Air 10/10/22 07:33 Room Air PG Care Time/CCT Total # of Minutes Spent Total Time Spent with Patient: Total time spent is greater than 50% in coordination of care (as documented) at patient's floor/unit and/or counseling patient: Coding Level of Care Code 39728 INT INP/OBS CARE 3/75MIN Diagnoses Pneumomediastinum J98.2 Vaping nicotine dependence, non-tobacco product F17.200 Marijuana smoker F12.[address] R93.89
[2022-10-10 15:11] LABS: Hematocrit (blood only) 40.4 % (42.0-52.0); Hemoglobin 13.5 g/dl (14.0-18.0)
--- NOTE | 2022-10-10 15:58 | Emergency Department Note ---
History of Present Illness General Chief complaint: Dehydration Stated complaint: DEHYDRATION Time Seen by Provider: 10/10/22 07:45 History of Present Illness Provider Complaint: + nausea, + vomiting and + abdominal pain Onset (ago): day(s) 3 Description of Vomiting: + coffee grounds; no blood-streaked or no bloody Description of Diarrhea: + none Associated Abdominal Pain: Yes Severity: moderate Maximum Pain Intensity: 0 Quality: + cramping, + stabbing, + aching, + sharp and + dull Pain Consistency: + intermittent Relieved By: + none Exacerbated By: + vomiting Context: + smoking, + marijuana use and + other (History of Crohn's disease); no foreign travel, no sick contacts, no recent antibiotic use, no recent surgery/procedure, no history of abdominal surgery, no alcohol abuse or no anticoagulant use Associated symptoms: no chest pain, no headaches, no loss of appetite, no malaise, no dysuria or no fecal incontinence Home Medications Medication Instructions Recorded Confirmed Type ustekinumab 90 mg/mL subcutaneous 90 mg subcut Q8WK 10/10/22 10/10/22 History syringe (Stelara) Allergies Allergy/AdvReac Type Severity Reaction Status Date / Time No Known Allergies Allergy Unverified 08/03/22 14:10 Past Med/Surg History Medical History Crohn disease Surgical History No history of previous surgery Family History Father Hypertension Social History Smoking Status: Never smoker Tobacco Type: E-cigarettes / Vaping Hx Alcohol Use: No Hx Substance Use: No Preferred Language: Turkmen Communication Ability: Effective Cyber Systems Administrator Required: No Beliefs That Will Affect Care: None Current Living Situation: Other Current Living Situation Comment: lives in dorm at [facility] Other Information That Helps Us Care for You: No Feels Safe at Home: Yes Safety Concerns: Feels Safe At This Time Assistive Devices: Glasses Physical Exam Vital Signs: Vital Signs - 24 hr 10/10/22 07:33 10/10/22 08:26 10/10/22 08:25 Temperature 36.4 C L Temperature Source Temporal Artery Sc an Pulse Rate 128 H 78 78 Pulse Rate from Sp O2 Sensor Pulse Rhythm Regular Respiratory Rate 19 19 Respiratory Effort / Characteristics Non-Labored Sponta neous Respiratory Depth Normal Blood Pressure 111/78 Blood Pressure Summer n 89 Pulse Oximetry 96 96 Oxygen Delivery Me thod Room Air Room Air Sepsis Recent Feve r Within 48 Hours No Sepsis New/Unexpla ined Change in Men jaylen Status No Sepsis Action Take n by Nursing No Action Required 10/10/22 08:30 10/10/22 09:00 10/10/22 09:30 Temperature Temperature Source Pulse Rate 79 81 89 Pulse Rate from Sp O2 Sensor 80 81 88 Pulse Rhythm Respiratory Rate 15 16 20 Respiratory Effort / Characteristics Respiratory Depth Blood Pressure 111/78 108/69 112/72 Blood Pressure Summer n 89 82 85 Pulse Oximetry 96 97 97 Oxygen Delivery Me thod Sepsis Recent Feve r Within 48 Hours Sepsis New/Unexpla ined Change in Men jaylen Status Sepsis Action Take n by Nursing 10/10/22 10:00 10/10/22 10:30 10/10/22 11:00 Temperature Temperature Source Pulse Rate 80 84 76 Pulse Rate from Sp O2 Sensor 80 83 78 Pulse Rhythm Respiratory Rate 15 17 18 Respiratory Effort / Characteristics Respiratory Depth Blood Pressure 106/71 120/80 115/80 Blood Pressure Summer n 82 93 91 Pulse Oximetry 96 95 95 Oxygen Delivery Me thod Sepsis Recent Feve r Within 48 Hours Sepsis New/Unexpla ined Change in Men jaylen Status Sepsis Action Take n by Nursing Physical Exam: Physical Exam GENERAL: Patient vomiting coffee-ground emesis HENT: Exam performed. -Head: Normocephalic and atraumatic. -Right Ear: External ear normal. No mastoid erythema -Left Ear: External ear normal. No mastoid erythema -Mouth/Throat: The oropharynx is clear and moist. No trismus in the jaw. No dental abscesses or uvula swelling. No oropharyngeal exudate or tonsillar abscesses. EYES: Conjunctivae and EOM are normal.Right eye exhibits no discharge. Left eye exhibits no discharge. No scleral icterus. CV: Normal rate, regular rhythm, normal heart sounds and intact distal pulses. There is no peripheral edema. Palpable radial pulses bue. PULM/CHEST: Effort normal and breath sounds normal. No respiratory distress. No stridor. She has no wheezes. She has no rales. -Chest Wall: She exhibits no tenderness. ABD: Diffuse pain on palpation of the abdomen. NEURO: Motor and sensation grossly intact. SKIN: Skin is warm and dry. She is not diaphoretic. PSYCH: She has a normal mood and affect. Behavior is normal. Judgment and thought content normal. Course Course 0745: The patient was evaluated in room C10. A complete history and physical exam was performed Cardiac monitoring: An order was placed for continuous cardiac monitoring. The monitor shows a rate of 70 with sinus rhythm interpreted by me Patient coffee-ground emesis actively in the emergency department. Large-bore IV access 2 L normal saline Protonix bolus and Protonix drips ordered for the patient. 0904: Received a message from radiology Dr. Amor who states that the patient has pneumomediastinum most likely secondary to vomiting. Spoke with trace evidence technician and will obtain CT of the chest while the patient is drinking oral contrast to make sure that there is no esophageal rupture or Boerhaave syndrome. 1015: Vital signs stable. Imaging shows good wall thickening and mucosal hyperemia of the terminal ileum pneumomediastinum without esophageal injury no pneumoperitoneum. No bowel obstruction. Labs show a leukocytosis of 13.54. Creatinine of 1.61 up from baseline of 0.6. IV fluids and PPIs continued outpatient. Awaiting callback from GI Dr. Birmingham 1038: Still no callback from Dr. Birmingham patient hemodynamically stable. 1100: Vital signs stable. Spoke with Dr. Birmingham who agrees with supportive treatment and PPIs. Spoke with ICU/pulmonology Dr. Bhatt to be on consult of consulted and recommends Rocephin 1 g IV piggyback. [facility] who will admit the patient to Dr. Miles service. Administered Medications Pantoprazole Sodium 40 mg/ (Dextrose) 100 mls @ 20 mls/hr IV Q5H FERNANDO Stop: 11/09/22 08:14 Last Admin: 10/10/22 14:14 Dose: 8 mg/hr, 20 mls/hr Documented By: Infusion: 10/10/22 13:40 Dose: 8 mg/hr, 20 mls/hr Documented By: Admin: 10/10/22 08:40 Dose: 8 mg/hr, 20 mls/hr Documented By: CAM Sodium Chloride (Nss 1000ml) 1,000 mls @ 125 mls/hr IV .Q8H FERNANDO Stop: 11/09/22 11:14 Last Admin: 10/10/22 11:26 Dose: 125 mls/hr Documented By: CAM Acetaminophen (Ofirmev) 1,000 mg in 100 mls @ 400 mls/hr IV Q8H PRN PRN Reason: Pain or Fever Stop: 10/13/22 13:11 Last Admin: 10/10/22 14:14 Dose: 400 mls/hr Documented By: JOHNATHAN Discontinued Medications Sodium Chloride (Nss 1000ml) 1,000 mls @ 999 mls/hr IV .Q1H1M ONE Stop: 10/10/22 08:45 Last Infusion: 10/10/22 08:53 Dose: 0 mls/hr Documented By: Admin: 10/10/22 08:05 Dose: 999 mls/hr Documented By: CAM Pantoprazole Sodium (Protonix Bolus/Drip) 0 mls @ 1 mls/hr IV ONE STA Stop: 10/10/22 07:54 Last Admin: 10/10/22 08:40 Dose: Not Given Documented By: CAM Pantoprazole Sodium 80 mg/ (Dextrose) 120 mls @ 400 mls/hr IV NOW ONE Stop: 10/10/22 08:10 Last Infusion: 10/10/22 08:40 Dose: 0 mls/hr Documented By: Admin: 10/10/22 08:22 Dose: 400 mls/hr Documented By: CAM Sodium Chloride (Nss 1000ml) 1,000 mls @ 999 mls/hr IV .Q1H1M ONE Stop: 10/10/22 09:48 Last Infusion: 10/10/22 10:11 Dose: 0 mls/hr Documented By: Admin: 10/10/22 08:52 Dose: 999 mls/hr Documented By: CAM Ceftriaxone Sodium 1,000 mg/ (Dextrose) 50 mls @ 100 mls/hr IV NOW STA Stop: 10/10/22 11:38 Last Infusion: 10/10/22 13:06 Dose: 0 mls/hr Documented By: Admin: 10/10/22 11:48 Dose: 100 mls/hr Documented By: CAM Ioversol (Optiray 320 100ml) 95 ml IV ONCE ONE Stop: 10/10/22 09:18 Last Admin: 10/10/22 09:17 Dose: 95 ml Documented By: MEL Morphine Sulfate (Morphine Sulfate 4 Mg/Ml 1 Ml Carp\Vial) 4 mg IV NOW STA Stop: 10/10/22 07:54 Last Admin: 10/10/22 08:15 Dose: 4 mg Documented By: CAM Ondansetron HCl (Ondansetron Inj 2 Mg/Ml 2 Ml Vial) 4 mg IV NOW STA Stop: 10/10/22 07:46 Last Admin: 10/10/22 08:05 Dose: 4 mg Documented By: CAM Ondansetron HCl (Ondansetron 4 Mg Od Tab) Confirm Administered Dose 4 mg .ROUTE .STK-MED ONE Stop: 10/10/22 07:51 Last Admin: 10/10/22 07:50 Dose: 4 mg Documented By: CAM Medical Decision Making Medical Records Attestation: I reviewed the patient's medical records. External medical records were reviewed. Patient has a scanned endoscopy report from September 2021 showed there were no evidence of esophageal varices. Laboratory Data Attestation: I reviewed the patient's lab results. 10/10/22 14:32 10/10/22 08:00 Lab Results 10/10/22 10/10/22 10/10/22 Range/Units 08:00 08:00 08:40 WBC 13.54 H (4.8-10.8) K/ul RBC 6.28 H (4.70-6.10) M/uL Hgb 17.8 (14.0-18.0) g/dl Hct 50.5 (42.0-52.0) % MCV 80.4 (80.0-100.0) fL MCH 28.3 (25.0-34.0) pg MCHC 35.2 (32.0-36.0) g/dL RDW Std Deviation 37.3 (36.4-46.3) fL RDW Coeff of Андрей 13.4 (11.5-14.5) % Plt Count 512 H (130-400) K/uL MPV 10.4 (9.4-12.4) fL Immature Gran % (Auto) 0.4 % Neut % (Auto) 79.8 % Lymph % (Auto) 9.2 % Mccormick % (Auto) 10.5 % Eos % (Auto) 0.0 % Baso % (Auto) 0.1 % Neut # (Auto) 10.80 H (1.40-6.50) K/uL Lymph # (Auto) 1.25 (1.2-3.4) K/uL Mccormick # (Auto) 1.42 H (0.11-0.59) K/uL Eos # (Auto) 0.00 (0-0.50) K/uL Baso # (Auto) 0.02 (0-0.2) K/uL Immature Gran # (Auto) 0.05 (0.01-0.20) K/uL Sodium 138 (136-145) mmol/L Potassium 3.8 (3.5-5.1) mmol/L Chloride 100 (98-107) mmol/L Carbon Dioxide 17 L (21-32) mmol/L Anion Gap 21 H (3-11) BUN 40 H (6-23) mg/dl Creatinine 1.61 H (0.6-1.4) mg/dl Est Cr Clr Drug Dosing 57.8 ml/min Est GFR ( Amer) 70.8 ml/min Est GFR (Non-Af Amer) 61.1 ml/min BUN/Creatinine Ratio 24.8 H (10-20) Glucose 196 H (70-99(Fasting)) mg/dl Calcium 10.8 H (8.6-10.3) mg/dl Magnesium 1.6 L (1.7-2.4) mg/dl Total Bilirubin 0.9 (0.2-1.0) mg/dl Direct Bilirubin 0.3 H (0-0.2) mg/dl AST 16 (13-39) U/L ALT 17 (7-52) U/L Alkaline Phosphatase 91 (34-104) U/L Total Protein 10.1 H (6.0-8.3) gm/dl Albumin 5.6 H (3.4-5.0) gm/dl Lipase 11 (11-82) U/L SARS-CoV-2, RNA, NAAT NEGATIVE (NEGATIVE) Imaging Data Radiologist's Impression: Abdomen/Pelvis CT 10/10/22 07:[address] WITH CONTRAST; CT ABDOMEN AND PELVIS WITH IV CONTRAST ONLY CT DOSE: 876.40 mGy.cm HISTORY: Acute generalized chest and abdominal pain with nausea and vomiting ro esophogeal perf TECHNIQUE: Multiaxial CT images of the chest, abdomen and pelvis were performed following the IV administration of 95 cc of Optiray. A small amount of enteric contrast was given for the CT chest to evaluate the esophagus. A dose lowering technique was utilized adhering to the principles of ALARA. COMPARISON: Chest radiograph of same day, CT abdomen and pelvis 01/08/2022 FINDINGS: CT CHEST: Unremarkable thyroid. Residual thymic tissue in the anterior mediastinum. The heart is normal in size without pericardial effusion. Unremarkable thoracic aorta and opacified pulmonary artery. No lymphadenopathy identified. Moderate pneumomediastinum which tracks into the lower neck. No pneumothorax, pleural effusion, airspace consolidation or overt pulmonary edema. Thin-walled subpleural cyst of the left lower lobe measures 1.8 cm on image 120. Central airways are patent. Mild gaseous distention of the esophagus which contains enteric contrast. No esophageal wall thickening or definitive esophageal wall injury identified. Unremarkable soft tissues. No acute fracture identified. CT ABDOMEN/PELVIS: No pneumatosis or pneumoperitoneum identified. The spleen, pancreas, adrenal glands and distended gallbladder appear unremarkable. The liver is within normal limits. Patent portal vein. Unremarkable kidneys. No hydronephrosis. Urinary bladder wall thickening with partial distention. The prostate is upper limits of normal in size. Aorta and IVC are unremarkable. Prominent mesenteric lymph nodes are likely reactive. Marked wall thickening with mucosal or premie again noted within the terminal ileum is present within the central pelvis. There is adjacent inflammatory stranding. Scattered air-fluid levels are noted within numerous loops of small bowel. Large bowel is distended measuring up to approximately 7.5 cm with decompressed distal small bowel. Unremarkable soft tissues. IMPRESSION: 1. Marked wall thickening with mucosal hyperemia again noted involving the terminal ileum with associated luminal narrowing compatible with active inflammatory bowel disease. 2. Large and small bowel air-fluid levels are present in addition to colonic distention suggestive of enteritis with diarrheal illness. Follow-up is recommended in order to exclude a distal obstruction. 3. Mesenteric lymphadenopathy, likely reactive. 4. No pneumoperitoneum. 5. Pneumomediastinum without esophageal injury identified. ACT 112: Negative or not required by law. Electronically signed by: Russell Amor M.D. 10/10/2022 10:00 AM Chest X-Ray 10/10/22 07:54 XR chest 1V portable HISTORY: 21 years-old Male vomitting acute nausea with vomiting COMPARISON: CT 01/08/2022 TECHNIQUE: AP view the chest FINDINGS: Cardiomediastinal and hilar silhouettes are within normal limits. No pneumothorax, pleural effusion, airspace consolidation or overt pulmonary edema. Vertically oriented linear lucencies project over the base of the neck extending into the upper mediastinum. Bones appear normal.. IMPRESSION: 1. Pneumomediastinum with deep tissue air extending into the neck. 2. No pneumothorax. ACT 112: Negative or not required by law. The above report was generated using voice recognition software. It may contain grammatical, syntax or spelling errors. Electronically signed by: Russell Amor M.D. 10/10/2022 8:[address] 10/10/22 09:[address] WITH CONTRAST; CT ABDOMEN AND PELVIS WITH IV CONTRAST ONLY CT DOSE: 876.40 mGy.cm HISTORY: Acute generalized chest and abdominal pain with nausea and vomiting ro esophogeal perf TECHNIQUE: Multiaxial CT images of the chest, abdomen and pelvis were performed following the IV administration of 95 cc of Optiray. A small amount of enteric contrast was given for the CT chest to evaluate the esophagus. A dose lowering technique was utilized adhering to the principles of ALARA. COMPARISON: Chest radiograph of same day, CT abdomen and pelvis 01/08/2022 FINDINGS: CT CHEST: Unremarkable thyroid. Residual thymic tissue in the anterior mediastinum. The heart is normal in size without pericardial effusion. Unremarkable thoracic aorta and opacified pulmonary artery. No lymphadenopathy identified. Moderate pneumomediastinum which tracks into the lower neck. No pneumothorax, pleural effusion, airspace consolidation or overt pulmonary edema. Thin-walled subpleu ral cyst of the left lower lobe measures 1.8 cm on image 120. Central airways are patent. Mild gaseous distention of the esophagus which contains enteric contrast. No esophageal wall thickening or definitive esophageal wall injury identified. Unremarkable soft tissues. No acute fracture identified. CT ABDOMEN/PELVIS: No pneumatosis or pneumoperitoneum identified. The spleen, pancreas, adrenal glands and distended gallbladder appear unremarkable. The liver is within normal limits. Patent portal vein. Unremarkable kidneys. No hydronephrosis. Urinary bladder wall thickening with partial distention. The prostate is upper limits of normal in size. Aorta and IVC are unremarkable. Prominent mesenteric lymph nodes are likely reactive. Marked wall thickening with mucosal or premie again noted within the terminal ileum is present within the central pelvis. There is adjacent inflammatory stra nding. Scattered air-fluid levels are noted within numerous loops of small bowel. Large bowel is distended measuring up to approximately 7.5 cm with decompressed distal small bowel. Unremarkable soft tissues. IMPRESSION: 1. Marked wall thickening with mucosal hyperemia again noted involving the terminal ileum with associated luminal narrowing compatible with active inflammatory bowel disease. 2. Large and small bowel air-fluid levels are present in addition to colonic distention suggestive of enteritis with diarrheal illness. Follow-up is recommended in order to exclude a distal obstruction. 3. Mesenteric lymphadenopathy, likely reactive. 4. No pneumoperitoneum. 5. Pneumomediastinum without esophageal injury identified. ACT 112: Negative or not required by law. Electronically signed by: Russell Amor M.D. 10/10/2022 10:00 AM MDM Narrative 0745: The patient was evaluated in room C10. A complete history and physical exam was performed Cardiac monitoring: An order was placed for continuous cardiac monitoring. The monitor shows a rate of 70 with sinus rhythm interpreted by me Patient coffee-ground emesis actively in the emergency department. Large-bore IV access 2 L normal saline Protonix bolus and Protonix drips ordered for the patient. 0904: Received a message from radiology Dr. Amor who states that the patient has pneumomediastinum most likely secondary to vomiting. Spoke with trace evidence technician and will obtain CT of the chest while the patient is drinking oral contrast to make sure that there is no esophageal rupture or Boerhaave syndrome. 1015: Vital signs stable. Imaging shows good wall thickening and mucosal hyperemia of the terminal ileum pneumomediastinum without esophageal injury no pneumoperitoneum. No bowel obstruction. Labs show a leukocytosis of 13.54. Creatinine of 1.61 up from baseline of 0.6. IV fluids and PPIs continued outpatient. Awaiting callback from GI Dr. Birmingham 1038: Still no callback from Dr. Birmingham patient hemodynamically stable. 1100: Vital signs stable. Spoke with Dr. Birmingham who agrees with supportive treatment and PPIs. Spoke with ICU/pulmonology Dr. Bhatt to be on consult of consulted and recommends Rocephin 1 g IV piggyback. [facility] will admit the patient to Dr. Miles service. Impression & Plan Coffee ground emesis, Crohn's disease, KARLEE (acute kidney injury) Discharge Plan Visit Data Chief Complaint: Dehydration Stated Complaint: DEHYDRATION ED Provider: Sal Morel Discharge Problem: Coffee ground emesis, Crohn's disease, KARLEE (acute kidney injury) Patient Disposition: Admitted As Inpatient Discharge Instructions Interventions: ED Discharge Assessment Last Done: 10/10/22 12:07 Crohn's disease Qualifiers: Gastrointestinal tract location: unspecified location Digestive disease complication type: unspecified complication Qualified Code(s): K50.919 - Crohn's disease, unspecified, with unspecified complications
--- NOTE | 2022-10-10 16:22 | Gastrointestinal Consultation ---
Date of Consultation October 10, 2022 Assessment & Plan (1) Crohn's disease: (2) Enteritis: Plan Crohns disease: it appears this has been uncontrolled and is contributing to his symptoms, though I do think there is a component of viral enteritis causing acute illness. at this time start solumedrol 30 mg IV BID. We will likely refer him to be evaluated with IBD specialist Dr. Oni Najera at [facility] as an outpatient, may need to adjust stelara vs. consider other biologic. recs: solumedrol IV 30 mg BID check CRP, fecal calprotectin check cdiff supportive care, IVFs, antiemetics, IV ppi daily Thank you for allowing me to participate in the care of this patient History of Present Illness Attending Physician: Paul Miles MD History of Present Illness 21 yo male with hx Crohns disease on stelara q1dhndh here with nausea/vomiting for the last 2 days. He reports overeatng and then developed diarrhea and vomiting. He notes he has been having issues with vomiting every 1.5 weeks lately. Has been on stelara since November 2021. regrding his vomiting, has some scant hematemesis on his last vomit, had vomited multiple times. has a hx TI stricture. CT shows esophagus without any definite wall damage, but does show enteritis and active crohns disease it appears at the TI. Last stelara injection was last month. Of note he does use marijuana and did use it the night he got sick. labs reviewed. Allergies Allergy/AdvReac Type Severity Reaction Status Date / Time No Known Allergies Allergy Unverified 08/03/22 14:10 Home Medications Medication Instructions Recorded Confirmed Type ustekinumab 90 mg/mL subcutaneous 90 mg subcut Q8WK 10/10/22 10/10/22 History syringe (Stelara) Patient History Medical History Crohn disease Surgical History No history of previous surgery Family History Father Hypertension Other Diverticulitis Social History Smoking Status: Never smoker Tobacco Type: E-cigarettes / Vaping Hx Alcohol Use: No Hx Substance Use: Yes (vapes marijuana nightly ) Prescribed Medications: Marijuana Preferred Language: Tamazight Communication Ability: Effective Assembly Room Supervisor Required: No Beliefs That Will Affect Care: None Current Living Situation: Other Current Living Situation Comment: lives in dorm at [facility] Other Information That Helps Us Care for You: No Feels Safe at Home: Yes Safety Concerns: Feels Safe At This Time Assistive Devices: Glasses Review of Systems Constitutional: no fever, no chills and no weight loss Eyes: as per Subjective / HPI Ear, Nose, Mouth, Throat: as per Subjective / HPI Respiratory: no dyspnea and no dyspnea on exertion Cardiovascular: no chest pain and no palpitations Gastrointestinal: as per Subjective / HPI Musculoskeletal: no joint pain and no swelling Integumentary: no rash and no lesions Neurologic: no numbness and no paresthesia Psychiatric: no depression and no anxiety Endocrine: no fatigue Hematologic / Lymphatic: no easy bleeding and no easy bruising Physical Exam Constitutional: WD/WN, vitals as above Eyes: EOM intact bilaterally Neck: normal visual inspection Respiratory: normal respiratory effort, lungs clear to auscultation Cardiovascular: RRR, no murmur, no edema Gastrointestinal (Abdomen): Inspection/Auscultation: abdomen normal to inspection; abdomen not distended Percussion/Palpation: abdomen soft; abdomen nontender and no hepatosplenomegaly Musculoskeletal: Extremities: no cyanosis Gait: normal gait Skin: no rashes, warm and dry Neurologic: moves all extremities Psychiatric: A+Ox3, euthymic affect Results & Data Vital Signs (Past 12 Hours) Vital Signs Temp Pulse Pulse Resp BP BP Pulse Ox 10/10/22 14:18 75 10/10/22 12:39 10/10/22 12:39 36.7 C 78 18 113/82 94 10/10/22 12:07 71 17 117/74 95 10/10/22 12:00 71 17 117/74 95 10/10/22 11:30 83 18 118/78 94 10/10/22 11:00 76 18 115/80 95 10/10/22 10:30 84 17 120/80 95 10/10/22 10:00 80 15 106/71 96 10/10/22 09:30 89 20 112/72 97 10/10/22 09:00 81 16 108/69 97 10/10/22 08:30 79 15 111/78 96 10/10/22 08:25 78 10/10/22 08:26 78 19 96 10/10/22 07:33 36.4 C L 128 H 19 111/78 96 O2 Del Method 10/10/22 14:18 10/10/22 12:39 Room Air 10/10/22 12:39 Room Air 10/10/22 12:07 Room Air 10/10/22 12:00 10/10/22 11:30 10/10/22 11:00 10/10/22 10:30 10/10/22 10:00 10/10/22 09:30 10/10/22 09:00 10/10/22 08:30 10/10/22 08:25 10/10/22 08:26 Room Air 10/10/22 07:33 Room Air PG Care Time/CCT Total # of Minutes Spent Total Time Spent with Patient: Total time spent is greater than 50% in coordination of care (as documented) at patient's floor/unit and/or counseling patient: Coding Level of Care Code 63290 IN/OBS CONSULT LVL 4,60M Diagnoses Crohn's disease K50.919 Digestive disease complication type: unspecified complication Gastrointestinal tract location: unspecified location Enteritis K52.9 (1) Crohn's disease Digestive disease complication type: unspecified complication Gastrointestinal tract location: unspecified location Qualified Code(s): K50.919 - Crohn's disease, unspecified, with unspecified complications
[2022-10-10] MEDS ORDERED: MAGNESIUM SULFATE / D5W 1 GM/100 ML BAG IV ONE (16:33)
[2022-10-10] MEDS: methylPREDNISolone 30 MG in SYRINGE 0 ML IV SCH (17:59)
[2022-10-10 20:49] LABS: Appearance Urine Clear (Clear); Bacteria Urine Automated Negative (Negative); Bilirubin Urine Negative (Negative); Blood Urine Negative (Negative); Color Urine Dark Yellow; Glucose Urine UA Negative (Negative); Ketones Urine Negative (Negative); Leukocyte Esterase Urine Negative (Negative); Nitrite Urine Negative (Negative); Protein Urine Trace (Negative); RBC Urine Automated 0-4 /hpf (0-4); Specific Gravity Urine > 1.045 (1.000-1.030); Urobilinogen Urine Negative (Negative)
[2022-10-10 23:22] LABS: Adenovirus F 40/41 PCR Not Detected (NotDetected); Astrovirus PCR Not Detected (NotDetected); Campylobacter PCR Not Detected (NotDetected); Cryptosporidium PCR Not Detected (NotDetected); Cyclospora cayetanensis PCR Not Detected (NotDetected); Entamoeba histolytica PCR Not Detected (NotDetected); Enteroaggregative E.coli(EAEC) Not Detected (NotDetected); Enteropathogenic E.coli (EPEC) Not Detected (NotDetected); Enterotoxigenic E.coli (ETEC) Not Detected (NotDetected); Giardia lamblia PCR Not Detected (NotDetected); Norovirus GI/GII PCR Not Detected (NotDetected); Plesiomonas shigelloides PCR Not Detected (NotDetected); Rotavirus A PCR Not Detected (NotDetected); Salmonella PCR Not Detected (NotDetected); Sapovirus PCR Not Detected (NotDetected); Shiga-like Toxin E.coli (STEC) Not Detected (NotDetected); Shigella/Enteroinvasive E.coli Not Detected (NotDetected); Vibrio cholerae PCR Not Detected (NotDetected); Vibrio species PCR Not Detected (NotDetected); Yersinia enterocolitica PCR Not Detected (NotDetected)
[2022-10-11] MEDS: methylPREDNISolone 30 MG in SYRINGE 0 ML IV SCH ×2 (03:37→15:44)
[2022-10-11 06:40] LABS: Hematocrit (blood only) 30.6 % (42.0-52.0); Hemoglobin 10.8 g/dl (14.0-18.0); Mean Corpuscular Hgb Conc 35.3 g/dL (32.0-36.0); Mean Platelet Volume 10.4 fL (9.4-12.4); Platelet Count 231 K/uL (130-400); RDW Coefficient of Variation 13.2 % (11.5-14.5); RDW Standard Deviation 39.4 fL (36.4-46.3); Red Blood Count 3.73 M/uL (4.70-6.10); White Blood Count 5.17 K/ul (4.8-10.8)
[2022-10-11 06:41] LABS: Alanine Aminotransferase 10 U/L (7-52); Albumin Globulin Ratio 1.4 (0.9-2); Albumin Level 3.4 gm/dl (3.4-5.0); Alkaline Phosphatase 50 U/L (34-104); Anion Gap 2 (3-11); Aspartate Aminotransferase 11 U/L (13-39); BUN Creatinine Ratio 21.1 (10-20); Bilirubin,Total 0.8 mg/dl (0.2-1.0); Blood Urea Nitrogen 12 mg/dl (6-23); Calcium 8.5 mg/dl (8.6-10.3); Carbon Dioxide 25 mmol/L (21-32); Chloride 110 mmol/L (98-107); Creatinine Clr Calc Pharmacy 170.1 ml/min; Est GFR (African American) > 150.0 ml/min; Est GFR (Non-African American) 148.9 ml/min; Globulin 2.4 gm/dl (2.5-4.0); Glucose 112 mg/dl (70-99(Fasting)); Magnesium 1.8 mg/dl (1.7-2.4); Potassium 4.1 mmol/L (3.5-5.1); Sodium 137 mmol/L (136-145); Total Protein 5.8 gm/dl (6.0-8.3)
--- NOTE | 2022-10-11 07:18 | Pulmonology Progress Note ---
Date of Service October 11, 2022 Assessment & Plan (1) Pneumomediastinum: (2) Vaping nicotine dependence, non-tobacco product: (3) Marijuana smoker: (4) Abnormal chest CT: Plan CT chest 10/10/2022 personally reviewed: Pneumomediastinum appreciated Left lower lobe peripheral 1.8 mm cyst Dilated esophagus with contrast in the distal esophagus No mediastinal lymphadenopathy -- Spontaneous pneumomediastinum Likely from significant retching probable Juliette-Neri tear No intervention needed Avoid elevated intrathoracic pressure. Nausea and antitussive medication -- Left lower lobe peripheral cyst Probably from old infection Crohn's disease is also associated with bronchiectasis but I do not see any sig ns of bronchiectasis on the CT chest -- Active vaping Advised to quit --Chronic nausea and vomiting Patient does smoke/vape marijuana on a regular basis Hyperemesis syndrome related to chronic marijuana use could be one of the etiology as well Plan: Patient is stable from pulmonary perspective. Avoid increasing intrathoracic pressure, aggressive coughing/retching No further recommendation from pulmonary perspective We will sign off, please call directly with any questions Case was discussed with Dr. Miles Please note the above document was generated using voice recognition software. It may contain grammatical, syntax or spelling errors.Any formal questions or concerns about the content, text or information contained within the body of this dictation should be directly addressed to the provider for clarification. Admission and Anticipated Discharge Date Admission Date: October 10, 2022 Subjective Patient seen and examined at bedside. No acute distress, notable since overnight Had 1 loose bowel movement today. No nausea vomiting Fair appetite No chest pain, no shortness of breath Denies any headache, no dizziness Patient's mother was in the room at the time of examination Review of Systems Review of Systems: All systems reviewed & are unremarkable except as noted in Subjective Physical Exam Physical Exam: Constitutional: No acute distress HEENT: EOMI, PERRLA no subcu crepitus Respiratory system: Good air entry bilaterally, no wheeze, no rhonchi, no crackles CVS: S1-S2 positive, no murmurs or gallops Abdomen: Soft, mild abdominal tenderness diffuse more on the epigastric, no rebound, nondistended, positive bowel sounds x4 Extremities: +2 pulses bilaterally radialis/ dorsalis pedis, no cyanosis, no edema Neuro: Awake alert oriented x3 Psych: Normal mood and affect G/U: No Batista Skin: no rashes, warm and dry Lymphatic: no cervical or axillary lymphadenopathy Results & Data Results & Data Vital Signs (Past 12 Hours) Vital Signs Temp Pulse Pulse Resp BP BP Pulse Ox 10/11/22 07:11 49 L 10/11/22 03:17 36.6 C 73 16 98/49 L 96 10/10/22 23:18 37.0 C 65 16 108/51 L 95 10/10/22 22:57 68 10/10/22 19:41 36.7 C 69 18 125/76 98 O2 Del Method 10/11/22 07:11 10/11/22 03:17 Room Air 10/10/22 23:18 Room Air 10/10/22 22:57 10/10/22 19:41 Room Air Laboratory Results 10/11/22 05:27 10/11/22 05:27 PG Care Time/CCT Total # of Minutes Spent Total Time Spent with Patient: Total time spent is greater than 50% in coordination of care (as documented) at patient's floor/unit and/or counseling patient: Coding Level of Care Code 57858 SUB INP/OBS CARE 2/35MIN Diagnoses Pneumomediastinum J98.2 Vaping nicotine dependence, non-tobacco product F17.200 Marijuana smoker F12.[address] R93.89
[2022-10-11] MEDS: PANTOprazole 40 MG in SYRINGE 0 ML IV SCH (08:15)
--- NOTE | 2022-10-11 08:57 | Communication Note ---
Date of Service: October 11, 2022 GI brief note started steroids yesterday, feeling ok but still with diarrhea. We did discuss the possibility of cannibas hyperemesis syndrome as he uses marijuana regularly. recs: stop marijuana altogether for at least 3 months continue solumedrol BID follow up outpt with his home GI in [place] we will arrange for a referral to Dr. Oni Najera for a second opinion at [facility]. Robin Birmingham MD Gastroenterology
--- NOTE | 2022-10-11 12:22 | Hospitalist Progress Note ---
Date of Service October 11, 2022 Assessment & Plan (1) Enteritis: (2) Coffee ground emesis: (3) Crohn's disease: (4) KARLEE (acute kidney injury): Plan This is a 21-year-old male with PMH of Crohn's disease on Stelara who presents with ongoing nausea and vomiting over the past 3 days found to have likely acute viral enteritis, acute Crohn's flare and spontaneous pneumomediastinum. Enteritis Coffee ground emesis N,V&D x 3 days following large meal on , vapes marijuana daily VSS, WBC 13.54, hgb 13.5 CT abd/pelvis with marked wall thickening with mucosal hyperemia again noted involving the terminal ileum with associated luminal narrowing compatible with active inflammatory bowel disease. Large and small bowel air-fluid levels are present in addition to colonic distention suggestive of enteritis with diarrheal illness. Follow-up is recommen ded in order to exclude a distal obstruction. Discussed with Dr. Birmingham of GI who does not feel there is an esophageal injury - radiology and pulm services also reviewed imaging Appreciate GI input and recommendation Stool culture and C. difficile toxin have been negative Continue with intravenous Solu-Medrol and PPI Having diarrhea and will observe for today and likely discharge tomorrow Spontaneous pneumomediastinum Chest CT with pneumomediastinum without esophageal injury identified Per Dr. Bhatt, spontaneous pneumomediastinum is most likely from retching, Juliette-Neri tear Anti-emetics and anti-tussives to avoid further vomiting No acute symptoms and pulmonary signed off Crohn's disease with acute flare Per GI, appears Crohn's is not controlled at this time and is contributing to symptoms (along with likely viral enteritis) Starting 30mg IV solu-medrol BID Referring to IBD specialist Dr. Najera at [facility] as an OP, may need medication adjustement Currently on Stelara injections every 2 months Stool calprotectin is pending. C. difficile has been negative and culture has been negative We will continue IV steroid for now and possible discharge tomorrow on oral steroid KARLEE Cr 1.6 in setting of GI losses (baseline ~0.6), appears clinically dehydrated Continue IV fluid resuscitation, avoid nephrotoxic agents, repeat BMP in AM Creatinine has been normalized Marijuana use Counseled on cessation of vaping Hypomagnesemia Mg 1.6. 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 Dispo: Admit to PCU Likely discharge tomorrow Admission and Anticipated Discharge Date Admission Date: October 10, 2022 Subjective 10/11/2022 The patient was seen and examined in telemetry unit in presence of the mother He has been feeling much better Denies any abdominal pain and has minimal right sided neck pain but has been swallowing well without any symptoms Having diarrhea without any blood per rectum No fever and no chills, no shortness of breath or chest pain Review of Systems Review of Systems: All systems reviewed and are unremarkable except as noted below Gastrointestinal: Minimal diarrhea without any nausea or vomiting Physical Exam Physical Exam: Has been feeling better since admission Remains hemodynamically stable and is afebrile and without any tachycardia Chest-clear to auscultate bilaterally Heart-S1-S2, regular Abdomen-soft, not distended, minimally tender and bowel sound present Extremitiesnegative for any edema ADMISSION NURSE-alert, 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 No focal sensory or no motor deficit appreciated Results & Data Results & Data Vital Signs (Past 12 Hours) Vital Signs Temp Pulse Pulse Resp BP BP Pulse Ox 10/11/22 12:00 36.8 C 63 18 104/67 98 10/11/22 09:32 36.3 C L 67 17 112/69 95 10/11/22 07:11 49 L 10/11/22 03:17 36.6 C 73 16 98/49 L 96 O2 Del Method 10/11/22 12:00 Room Air 10/11/22 09:32 Room Air 10/11/22 07:11 10/11/22 03:17 Room Air Laboratory Results Short CBC 10/10/22 10/11/22 Range/Units 14:32 05:27 WBC 5.17 (4.8-10.8) K/ul Hgb 13.5 L D 10.8 L (14.0-18.0) g/dl Hct 40.4 L 30.6 L (42.0-52.0) % Plt Count 231 D (130-400) K/uL BMP 10/11/22 05:27 Sodium 137 Potassium 4.1 Chloride 110 H Carbon Dioxide 25 BUN 12 D Creatinine 0.57 L D Glucose 112 H Calcium 8.5 L D Liver Function 10/11/22 Range/Units 05:27 Total Bilirubin 0.8 (0.2-1.0) mg/dl AST 11 L (13-39) U/L ALT 10 (7-52) U/L Alkaline Phosphatase 50 (34-104) U/L Albumin 3.4 (3.4-5.0) gm/dl Urine 10/10/22 Range/Units Unknown Urine Color Dark Yellow Urine Appearance Clear (Clear) Urine pH 6.0 (4.5-7.5) Ur Specific [place] > 1.045 H (1.000-1.030) Urine Protein Trace H (Negative) Urine Glucose (UA) Negative (Negative) Medications Administered Current Inpatient Medications Acetaminophen (Acetaminophen 325 Mg Tab) 650 mg PO Q4H PRN PRN Reason: Pain or Fever Stop: 11/09/22 12:36 Acetaminophen (Ofirmev) 1,000 mg in 100 mls @ 400 mls/hr IV Q8H PRN PRN Reason: Pain or Fever Stop: 10/13/22 13:11 Last Infusion: 10/10/22 15:54 Dose: Infused Methylprednisolone 30 mg/ (Syringe) 0.48 mls @ 1.5 mls/min IV Q12H FERNANDO Stop: 11/09/22 15:59 Last Admin: 10/11/22 03:37 Dose: 1.5 mls/min Pantoprazole Sodium 40 mg/ (Syringe) 10 mls @ 5 mls/min IV DAILY FERNANDO Stop: 11/10/22 08:59 Last Admin: 10/11/22 08:15 Dose: 5 mls/min Ondansetron HCl (Ondansetron Inj 2 Mg/Ml 2 Ml Vial) 4 mg IV Q6H PRN PRN Reason: Nausea Stop: 11/09/22 12:36 (3) Crohn's disease Digestive disease complication type: unspecified complication Gastrointestinal tract location: unspecified location Qualified Code(s): K50.919 - Crohn's disease, unspecified, with unspecified complications
--- NOTE | 2022-10-11 13:55 | XRay Report ---
XR chest 1V portable HISTORY: 21 years-old Male f/u follow-up study in a patient with pneumomediastinum COMPARISON: Chest CT 10/10/2022 TECHNIQUE: AP view of the chest FINDINGS: Subcutaneous emphysema within the supraclavicular distributions. Pneumomediastinum is redemonstrated with decreased deep tissue air within the neck base. Cardiac mediastinal and hilar silhouettes are ot herwise unremarkable. No pneumothorax, pleural effusion, airspace consolidation or pulmonary edema. B ones appear grossly intact. Mild gaseous distention of the stomach. IMPRESSION: 1. Pneumomediastinum with subcutaneous emphysema redemonstrated. 2. No pneumothorax. ACT 112: Negative or not required by law. The above report was generated using voice recognition software. It may contain grammatical, syntax o r spelling errors. Electronically signed by: Russell Amor M.D. 10/11/2022 1:53 PM
[2022-10-12] MEDS: methylPREDNISolone 30 MG in SYRINGE 0 ML IV SCH (04:06)
[2022-10-12 06:23] LABS: Hemoglobin 10.7 g/dl (14.0-18.0); Mean Corpuscular Hemoglobin 28.3 pg (25.0-34.0); Mean Corpuscular Hgb Conc 33.4 g/dL (32.0-36.0); Mean Corpuscular Volume 84.7 fL (80.0-100.0); Mean Platelet Volume 10.2 fL (9.4-12.4); Platelet Count 212 K/uL (130-400); RDW Coefficient of Variation 13.1 % (11.5-14.5); RDW Standard Deviation 40.2 fL (36.4-46.3); Red Blood Count 3.78 M/uL (4.70-6.10); White Blood Count 4.51 K/ul (4.8-10.8)
[2022-10-12 06:44] LABS: Alanine Aminotransferase 8 U/L (7-52); Albumin Globulin Ratio 1.5 (0.9-2); Albumin Level 3.4 gm/dl (3.4-5.0); Alkaline Phosphatase 46 U/L (34-104); Anion Gap 4 (3-11); Aspartate Aminotransferase 10 U/L (13-39); BUN Creatinine Ratio 15.1 (10-20); Bilirubin,Total 0.6 mg/dl (0.2-1.0); Blood Urea Nitrogen 8 mg/dl (6-23); Calcium 8.7 mg/dl (8.6-10.3); Carbon Dioxide 27 mmol/L (21-32); Chloride 108 mmol/L (98-107); Est GFR (African American) > 150.0 ml/min; Est GFR (Non-African American) > 150.0 ml/min; Globulin 2.3 gm/dl (2.5-4.0); Glucose 106 mg/dl (70-99(Fasting)); Potassium 3.9 mmol/L (3.5-5.1); Sodium 139 mmol/L (136-145); Total Protein 5.7 gm/dl (6.0-8.3)
[2022-10-12] MEDS: PANTOprazole 40 MG in SYRINGE 0 ML IV SCH (08:39)
--- NOTE | 2022-10-12 10:11 | Gastroenterology Progress Note ---
Date of Service October 12, 2022 Assessment & Plan (1) Crohn's disease: Plan: He is feeling much better and GI symptoms have resolved. He is hopeful for discharge home today. - he is going to follow up with his home GI later this week. He tells me he may consider transitioning his primary GI care to our office in the future as he spends more time in [place] than back home. - He will be referred to [facility] for an opinion with Dr. Oni Najera. - We discussed that it may be beneficial to check stelara through/antibody levels prior to his next dose in November. Will plan to see him back in our GI office on 10/28/22 at 2PM. Admission and Anticipated Discharge Date Admission Date: October 10, 2022 Supervising Physician Co-Signing Physician Notes Agree with GINO Rogers as above Abd: Soft, NT, ND, +BS Continue current therapy and supportive care F/U in our office as outpatient for chronic disease management. Subjective Patient feels much improved today. no further nausea, vomiting, or diarrhea. no abdominal pain. he tells me he is feeling much better and is hopeful to be discharged to home today. he is planning to see his home GI later this week. Patient's mother is at bedside. she is questioning transitioning his primary GI care to our office. Physical Exam Constitutional: WD/WN, vitals as above Respiratory: normal respiratory effort, lungs clear to auscultation Cardiovascular: RRR, no murmur, no edema Gastrointestinal (Abdomen): normal bowel sounds, soft, nontender, no hep atosplenomegaly Skin: no rashes, warm and dry Psychiatric: Orientation: alert and oriented x 3 Affect: euthymic affect Results & Data Results & Data Vital Signs (Past 12 Hours) Vital Signs Temp Pulse Pulse Resp BP Pulse Ox O2 Del Method 10/12/22 08:00 97.9 F 68 18 111/61 93 Room Air 10/12/22 07:20 48 L 10/12/22 04:05 97.5 F L 55 L 16 90/53 L 99 Room Air 10/11/22 23:22 97.9 F 56 L 16 102/61 97 Room Air 10/11/22 23:13 54 L PG Care Time/CCT Total # of Minutes Spent Total Time Spent with Patient: Total time spent is greater than 50% in coordination of care (as documented) at patient's floor/unit and/or counseling patient: Coding Level of Care Code 40565 SUB INP/OBS CARE 04/29MIN Diagnoses Crohn's disease K50.919 Digestive disease complication type: unspecified complication Gastrointestinal tract location: unspecified location Time Spent (min) 30 (1) Crohn's disease Digestive disease complication type: unspecified complication Gastrointestinal tract location: unspecified location Qualified Code(s): K50.919 - Crohn's disease, unspecified, with unspecified complications
--- NOTE | 2022-10-12 11:57 | Hospitalist Progress Note ---
Date of Service October 12, 2022 Assessment & Plan (1) Enteritis: (2) Coffee ground emesis: (3) Crohn's disease: (4) KARLEE (acute kidney injury): Plan This is a 21-year-old male with PMH of Crohn's disease on Stelara who presents with ongoing nausea and vomiting over the past 3 days found to have likely acute viral enteritis, acute Crohn's flare and spontaneous pneumomediastinum. Enteritis Coffee ground emesis N,V&D x 3 days following large meal on , vapes marijuana daily VSS, WBC 13.54, hgb 13.5 CT abd/pelvis with marked wall thickening with mucosal hyperemia again noted involving the terminal ileum with associated luminal narrowing compatible with active inflammatory bowel disease. Large and small bowel air-fluid levels are present in addition to colonic distention suggestive of enteritis with diarrheal illness. Follow-up is recomme nded in order to exclude a distal obstruction. Discussed with Dr. Birmingham of GI who does not feel there is an esophageal injury - radiology and pulm services also reviewed imaging Appreciate GI input and recommendation Stool culture and C. difficile toxin have been negative Continue with intravenous Solu-Medrol and PPI Having diarrhea and will observe for today and likely discharge tomorrow Will add prednisone 40 mg tapered by 5 mg every week as per GI recommendation Will have GI appointment as an outpatient To be discharged home this afternoon Spontaneous pneumomediastinum Chest CT with pneumomediastinum without esophageal injury identified Per Dr. Bhatt, spontaneous pneumomediastinum is most likely from retching, Juliette-Neri tear Anti-emetics and anti-tussives to avoid further vomiting No acute symptoms and pulmonary signed off Denies any more chest and or throat pain Crohn's disease with acute flare Per GI, appears Crohn's is not controlled at this time and is contributing to symptoms (along with likely viral enteritis) Starting 30mg IV solu-medrol BID Referring to IBD specialist Dr. Najera at [facility] as an OP, may need medication adjustement Currently on Stelara injections every 2 months Stool calprotectin is pending. C. difficile has been negative and culture has been negative We will continue IV steroid for now and possible discharge tomorrow on oral steroid As above KARLEE Cr 1.6 in setting of GI losses (baseline ~0.6), appears clinically dehydrated Continue IV fluid resuscitation, avoid nephrotoxic agents, repeat BMP in AM Creatinine has been normalized Marijuana use Counseled on cessation of vaping Hypomagnesemia Mg 1.6. 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 Dispo: Admit to PCU Discharge home this afternoon Admission and Anticipated Discharge Date Admission Date: October 10, 2022 Subjective 10/11/2022 The patient was seen and examined in telemetry unit in presence of the mother He has been feeling much better Denies any abdominal pain and has minimal right sided neck pain but has been swallowing well without any symptoms Having diarrhea without any blood per rectum No fever and no chills, no shortness of breath or chest pain 10/12/2022 The patient was seen and examined in telemetry unit in presence of the mother He has been feeling a lot better today and does not have any more diarrhea or any more abdominal pain Has been tolerating diet and be discharged home this afternoon Review of Systems Review of Systems: All systems reviewed and are unremarkable except as noted below Gastrointestinal: Minimal diarrhea without any nausea or vomiting Physical Exam Physical Exam: Has been feeling better since admission Remains hemodynamically stable and is afebrile and without any tachycardia Chest-clear to auscultate bilaterally Heart-S1-S2, regular Abdomen-soft, not distended,no tender and bowel sound present Extremitiesnegative for any edema [employer]-alert, 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 No focal sensory or no motor deficit appreciated Results & Data Results & Data Vital Signs (Past 12 Hours) Vital Signs Temp Pulse Pulse Resp BP Pulse Ox O2 Del Method 10/12/22 08:00 36.6 C 68 18 111/61 93 Room Air 10/12/22 07:20 48 L 10/12/22 04:05 36.4 C L 55 L 16 90/53 L 99 Room Air Laboratory Results Short CBC 10/12/22 Range/Units 05:43 WBC 4.51 L (4.8-10.8) K/ul Hgb 10.7 L (14.0-18.0) g/dl Hct 32.0 L (42.0-52.0) % Plt Count 212 (130-400) K/uL BMP 10/12/22 05:43 Sodium 139 Potassium 3.9 Chloride 108 H Carbon Dioxide 27 BUN 8 Creatinine 0.53 L Glucose 106 H Calcium 8.7 Liver Function 07/10/23 Range/Units 05:43 Total Bilirubin 0.6 (0.2-1.0) mg/dl AST 10 L (13-39) U/L ALT 8 (7-52) U/L Alkaline Phosphatase 46 (34-104) U/L Albumin 3.4 (3.4-5.0) gm/dl Medications Administered Current Inpatient Medications Acetaminophen (Acetaminophen 325 Mg Tab) 650 mg PO Q4H PRN PRN Reason: Pain or Fever Stop: 11/09/22 12:36 Acetaminophen (Ofirmev) 1,000 mg in 100 mls @ 400 mls/hr IV Q8H PRN PRN Reason: Pain or Fever Stop: 10/13/22 13:11 Last Infusion: 10/10/22 15:54 Dose: Infused Methylprednisolone 30 mg/ (Syringe) 0.48 mls @ 1.5 mls/min IV Q12H FERNANDO Stop: 11/09/22 15:59 Last Admin: 10/12/22 04:06 Dose: 1.5 mls/min Pantoprazole Sodium 40 mg/ (Syringe) 10 mls @ 5 mls/min IV DAILY FERNANDO Stop: 11/10/22 08:59 Last Admin: 10/12/22 08:39 Dose: 5 mls/min Ondansetron HCl (Ondansetron Inj 2 Mg/Ml 2 Ml Vial) 4 mg IV Q6H PRN PRN Reason: Nausea Stop: 11/09/22 12:36 (3) Crohn's disease Digestive disease complication type: unspecified complication Gastrointestinal tract location: unspecified location Qualified Code(s): K50.919 - Crohn's disease, unspecified, with unspecified complications
--- NOTE | 2022-10-12 17:46 | Discharge Summary ---
Date of Service October 12, 2022 Admission HPI Per Admitting Provider This is a 21-year-old male with PMH of Crohn's disease on Stelara who presents with ongoing nausea and vomiting over the past 3 days. Patient went to a dinner at a yoga studio on evening and and reports eating a lot. Then went home and used his marijuana vape pen, which he uses most nights to ensure better sleep, but that stimulate his appetite again and he ate before bed. Woke up later that night vomiting food product followed by bile as well as having watery diarrhea. Denies any blood in stool. Denies any reports of anyone else having food poisoning or anything unusual. By Wednesday evening, patient tried to reintroduce liquids and mild foods like applesauce but began vomiting again, this time vomit was dark brown in color. Denies any bright red blood or black- colored stool. Is not unusual in the past for patient to have a bout of nausea and vomiting following overeating, but this episode was getting progressively worse, so he came to ED for further evaluation. Currently having diffuse ab dominal discomfort but no river pain. Still feeling nauseated but improved on antiemetics. Has not had any recurrent diarrhea since arrival or recurrent vomiting since given Zofran. Denies any fevers, chills, lightheadedness, chest pain, shortness of breath, dysuria or constipation. Follows with gastroenterology service in [place] but is also seen by [facility] [place]ology while in [place] during the semester. 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 Besides nightly use of marijuana vape pen, patient denies tobacco or other illicit drug use. Drinks occasionally at parties but states he has not recently. Not on any other medications. Admission Exam Per Admitting Provider Physical Exam: General Appearance:WD/WN, vitals as above, NAD, sitting up in bed, pleasant, conversing easily Head: normocephalic, atraumatic Eyes:normal inspection, PERRL, conjunctivae normal, anicteric sclerae ENT: external ear and nose normal, oropharynx with dry mucous membranes Neck: normal visual inspection, trachea midline, no thyromegaly Respiratory:normal respiratory effort, lungs clear to auscultation, no wheeze, rales, rhonchi. No accessory muscle use Cardiovascular: regular rate, rhythm, no murmur, normal peripheral pulses, no BLE edema. Vessels: no JVD Chest: normal inspection of chest Abdomen/GI: normal bowel sounds, soft, nontender, no hepatosplenomegaly Extremities/Musculoskeletal: no cyanosis or clubbing, extremities motor strength 5/5 Neurologic: PERRL, EOMI, accommodation nl, no face palsy, no dysarthria, CN's II-XI intact bilaterally and moves all extremities Psychiatric:A+Ox3, euthymic affect Skin: no rashes, normal color, warm/dry Principal Diagnosis Exacerbation of Crohn's disease, very small pneumomediastinum on CAT scan- resolved Discharge Exam Has been feeling better since admission Remains hemodynamically stable and is afebrile and without any tachycardia Chest-clear to auscultate bilaterally Heart-S1-S2, regular Abdomen-soft, not distended,no tender and bowel sound present Extremitiesnegative for any edema 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 No focal sensory or no motor deficit appreciated Discharge Data Allergies Allergy/AdvReac Type Severity Reaction Status Date / Time No Known Allergies Allergy Unverified 08/03/22 14:10 Consultations 10/10/22 10:57 ED Decision to Admit Stat 10/10/22 12:36 Consult Gastroenterology Routine Consult Pulmonology Routine Ordered Studies 10/10/22 07:54 CT abd pelvis IV con only Stat 10/10/22 09:04 CT chest diagnostic w con Stat Hospital Course (1) Enteritis: (2) Coffee ground emesis: (3) Crohn's disease: (4) KARLEE (acute kidney injury): Plan This is a 21-year-old male with PMH of Crohn's disease on [facility] who presents with ongoing nausea and vomiting over the past 3 days found to have likely acute viral enteritis, acute Crohn's flare and spontaneous pneumomediastinum. Enteritis Coffee ground emesis N,V&D x 3 days following large meal on , vapes marijuana daily VSS, WBC 13.54, hgb 13.5 CT abd/pelvis with marked wall thickening with mucosal hyperemia again noted involving the terminal ileum with associated luminal narrowing compatible with active inflammatory bowel disease. Large and small bowel air-fluid levels are present in addition to colonic distention suggestive of enteritis with diarrheal illness. Follow-up is recommended in order to exclude a distal obstruction. Discussed with Dr. Salimi of GI who does not feel there is an esophageal injury - radiology and pulm services also reviewed imaging Appreciate GI input and recommendation Stool culture and C. difficile toxin have been negative Continue with intravenous Solu-Medrol and PPI Having diarrhea and will observe for today and likely discharge tomorrow Will add prednisone 40 mg tapered by 5 mg every week as per GI recommendation Will have GI appointment as an outpatient To be discharged home this afternoon Spontaneous pneumomediastinum Chest CT with pneumomediastinum without esophageal injury identified Per Dr. Bhatt, spontaneous pneumomediastinum is most likely from retching, Juliette-Neri tear Anti-emetics and anti-tussives to avoid further vomiting No acute symptoms and pulmonary signed off Denies any more chest and or throat pain Crohn's disease with acute flare Per GI, appears Crohn's is not controlled at this time and is contributing to symptoms (along with likely viral enteritis) Starting 30mg IV solu-medrol BID Referring to IBD specialist Dr. Najera at [facility] as an OP, may need medication adjustement Currently on Stelara injections every 2 months Stool calprotectin is pending. C. difficile has been negative and culture has been negative We will continue IV steroid for now and possible discharge tomorrow on oral steroid As above KARLEE Cr 1.6 in setting of GI losses (baseline ~0.6), appears clinically dehydrated Continue IV fluid resuscitation, avoid nephrotoxic agents, repeat BMP in AM Creatinine has been normalized Marijuana use Counseled on cessation of vaping Hypomagnesemia Mg 1.6. 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 Dispo: Admit to PCU Discharge home this afternoon Total Time Total Time Spent Total Time Spent (In Minutes): 35 minutes Discharge Plan Discharge Items Patient Disposition: Home - Self-Care Reason For Visit: N/V, HEMATEMESIS, PNEUMOMEDIASTINUM Discharge Diagnosis: Exacerbation of Crohn's disease, very small pneumomediastinum on CAT scan- resolved Condition on Discharge: Good Activity: Resume your previous activity Non-emergency contact: Primary Care Provider Call non-emergency contact if: you have any medication questions and your symptoms worsen Follow-up/Referrals: Chip Mosqueda PA-C [Physician Computer Software Engineer] - 10/28/22 2:00 pm PCP,NO [Physician] - (Please make an appointment with your primary care provider within 7 days) Diet: Regular Addtl Attending Provider Instructions: Please take precautions to avoid fall Take your medications as advised Advised to stop marijuana for at least 3 months as per GI Please give appointment with your healthcare providers Pending Studies at Discharge: Yes Studies:: Stool for Calprotectin Stand-Alone Forms: My [facility] [employer], Smoking Cessation Medications and DC Order Prescriptions: New prednisone 10 mg tablet 10 mg PO DIRECTED Qty: 118 0RF Rx Instructions: 4 p.o. daily for 5 days, 3-1/2 p.o. daily for 7 days, 3 p.o. daily for 7 days, 2-1/2 p.o. daily for 7 days, 2 p.o. daily for 7 days, 1-1/2 p.o. daily for 7 days, 1 p.o. daily for 7 days and then half p.o. daily for 7 days to finish. esomeprazole magnesium 20 mg capsule,delayed release(DR/EC) 20 mg PO DAILY Qty: 30 0RF ondansetron 4 mg tablet,disintegrating 4 mg PO BID PRN (Reason: nausea and vomiting) Qty: 20 0RF dicyclomine 10 mg capsule 10 mg PO TID PRN (Reason: abdominal pain) Qty: 30 0RF Continued Stelara 90 mg/mL syringe 90 mg [id number] [id number] Discharge Orders: Discharge Order (Routine); Ordered 10/12/22 Ordered By: Paul Miles Admission Data Admit Date/Time: 10/10/22 11:22 Attending Provider: Paul Miles Admit Provider: Paul Miles Primary Care Provider: Harinder Roque Other Providers: Paul Miles ; Robin Birmingham ; Mateusz Bhatt Other Interventions: Discharge Summary Assessment (RN) Last Done: 10/12/22 12:34
== END 2022-10-12 13:00 | disposition home or self-care (01) | DRG 385 ==
LOC: ED 07:17 → INTOOBSV 11:22 → 4W 11:22